=== PATIENT | male | born 1940 | race Caucasian/White ===

== ENCOUNTER 2023-11-21 14:11 | Inpatient (IN) | payer OTHER, SELFPAY ==
[2023-11-21 09:15] VITALS: BP 146/75
--- NOTE | 2023-11-21 09:46 | ED.GENMED ---
History of Present Illness
General
Chief Complaint: Breathing Problem
Source: patient
Exam Limitations: none
Time Seen by Provider: 11/21/23 09:43
Nursing documentation reviewed up to this point in time: agreed with
Travel History
Have you had any contact with someone who has COVID-19?: No
Do you have any symptoms of coronavirus? Fever > 100 degrees, chills, cough, shortness of breath, sore throat, loss of taste or smell, muscle aches, or headache?: No
History of Present Illness
History of Present Illness:
83-year-old male with a past medical history of COPD, CHF, CAD, CKD, diabetes presenting emergency department today with shortness of breath and cough x 2 days. Patient states that his symptoms came on all of a sudden yesterday. He states that he
started to feel increasingly shortness of breath all of a sudden and had a lot of coughing with sputum production. Patient states he also had chills but did not have a fever. Patient states that his albuterol rescue inhaler is not helping with his
symptoms. He does not take inhaler daily with COPD. He also has had some associated nausea today but no abdominal pain, no diarrhea, no constipation. Patient denies any lower extremity swelling, chest pain, sick contacts. Patient does not wear
oxygen at home. Patient denies any recent hospitalizations. Patient states that he is up-to-date on his vaccinations.
Past History
Past History
ED Past Medical History: CAD, Cancer (prostate age 50), CHF, COPD, GERD, Hypercholesterolemia, NIDDM, Renal failure, Other (neuropathy, hypotension, chronic back pain, mediatinal lymphadenopathy, psoriasis) and Other (ulcerative colitis)
ED Past Surgical History: Cardiac (CABG), Orthopedic (back surgery) and Urological (prostate with radiation therapy)
Social History
Tobacco: Former smoker
Alcohol: None
Drug: None
Personal:
Living: with family
Employment: Retired
Family History
Family History: Diabetes
Review of Systems
Review of Systems
All Other Systems: ROS reviewed and negative except as documented in HPI and ROS
Phy Exam
Physical Exam
Physical Exam:
General: Patient is ill appearing
Skin: warm and dry, no rashes or lesions
Head: normocephalic, atraumatic
Throat: mild pharyngeal erythema
Neck: no cervical lymphadenopathy
Cardiac: regular rate and rhythm, no murmurs.
Peripheral Vascular: No JVD, no lower extremity edema. 2+ dp pulses b/l.
Pulm: 88% pulse ox on RA, 98% on 4L. Increased respiratory rate. Diffuse rhonchi heard on exam.
Abdomen: abdomen is non-distended, non-tender to palpation
Neuro: AAOx3. CN II-XII intact.
Scores
Heart Failure Risk
Heart Failure Risk Score: Yes
History of Stroke or TIA: Yes
History of intubation for respiratory distress: No (unknown)
Heart rate on ED arrival >/= 110: No
SaO2 <90% on arrival on room air: Yes
HR >/=110 during 3min walk test (or too ill to perform test): No (unable to perform test)
ECG has acute ischemic changes: No
Urea >/=12mmol/L (BUN 33.6mg/dL): No
Serum CO2>/=35mmol/L: No
Troponin I or T elevated to MN Level (0.4mg/dL): No
NT-proBNP >/=5,000ng/L (5,000pg/ml): No
HF Risk Score: 2
Admission Status: MEDIUM RISK 9.2% Consider observation or discharge to home with homecare & f/u visit to PCP/Security Nurse, or SNF for treatment
PE Wells Score
Symptoms of DVT: No
No alternative diagnosis better explains the illness: No
Tachycardia with pulse > 100: No
Immobilization (>=3 days) or surgery within previous 4 weeks: No
Prior history of DVT or pulmonary embolism: No
Presence of hemoptysis: No
Presence of malignancy: No
Pulmonary Embolism Risk Score: 0
Probability of PE: Pt is low risk
Course
Orders/Labs/Results
Orders:
Orders
11/21/23 09:56
CR Chest - 2 Views Urgent
Comment:
Reason For Exam: shortness of breath
11/21/23 10:05
COVID-19 Antigen Urgent
Source: Nasal Swab
Complete Blood Count/With Diff Urgent
Comprehensive Metabolic Panel Urgent
NT-proBNP Urgent
Influenza A+B Rapid Molecular Urgent
ROSELINE Source: Nasal Swab
Specimen Description:
11/21/23 10:08
Ipratropium/Albuterol Sulfate [Duoneb] 3 ml INH R NOW ONE
11/21/23 11:57
Ipratropium/Albuterol Sulfate [Duoneb] 3 ml INH R NOW ONE
Prednisone [Deltasone] 40 mg PO NOW STA
11/21/23 12:57
Azithromycin 500 mg/250 ml [Zithromax Infusion] 500 mg in 250 ml IV NOW
Abnormal Lab Results
11/21/23
10:05
WBC 13.8 H 10^3/uL
(4.8-10.8)
RBC 4.00 L 10^6/uL
(4.70-6.10)
Hgb 12.0 L g/dL
(13.0-18.0)
Hct 36.3 L %
(39.0-52.0)
Abs Immat Gran (auto) 0.1 H 10^3/uL
(0-0.05)
Absolute Neuts (auto) 12.1 H 10^3/uL
(1.4-6.5)
Absolute Lymphs (auto) 0.6 L 10^3/uL
(1.2-3.4)
Absolute Monos (auto) 0.7 H 10^3/uL
(0.1-0.6)
Immature Gran % 0.9 H %
(0-0.5)
Neutrophils % 88.0 H %
(42.2-75.2)
Lymphocytes % 4.4 L %
(20.5-51.1)
BUN 31 H mg/dl
(9-20)
Creatinine 1.4 H mg/dL
(0.7-1.3)
Glucose 174 H mg/dl
(70-99)
11/21/23 10:05
11/21/23 10:05
Vital Signs
Initial and Last Documented VS:
Initial Vital Signs
Temp Pulse Resp BP Pulse Ox
98.2 F 94 22 146/75 93
11/21/23 09:15 11/21/23 09:15 11/21/23 09:15 11/21/23 09:15 11/21/23 09:15
Last Documented Vital Signs
Temp Pulse Resp BP Pulse Ox
98.2 F 94 22 146/75 98
11/21/23 09:15 11/21/23 09:15 11/21/23 09:15 11/21/23 09:15 11/21/23 11:04
MDM/Problems Addressed
Differential Diagnosis Includes:
Differentials include pneumonia, COPD exacerbation, acute bronchitis, upper respiratory tract infection, pulmonary embolism
MDM/Problems Addressed:
will obtain labs and CXR, will give duoneb
--------
CURB-65 Score: 2+, moderate risk (BUN >19 + age >65)
Chronic conditions affecting care: DM, HTN, CAD, COPD and Kidney disease
Acute Exacerbation and/or Progression of Chronic Illness: DM, HTN, COPD and Kidney disease
*Critical Care Note
Total Time (30-74mins, 75-104mins- exclusive of procedures): Not Applicable
Data Reviewed
Review of Other/Old Records Reveals: Radiology Studies (reviewed ER physician documentation from 07/24/2023, 06/11/2023) and Discharge Summary (reviewed discharge summary from 09/06/22)
Source: patient and records
Patient Management
Escalation/DeEscalation of care consider admission/obs:
83-year-old male with a past medical history of COPD, CHF, CAD, CKD, diabetes presenting emergency department today with shortness of breath and cough x 2 days. Denies fevers or chills, diarrhea. He has also had increased sputum production. On
exam, he is tachycardic and tachypneic, however is afebrile. He has diffuse rhonchi on exam and conversational dyspnea. He initially presented in the high 80s pulse ox on room air and will be placed on 4 L of oxygen at 96%. Chest x-ray negative
for pneumonia. After 1 DuoNeb treatment, patient was able to be weaned down to 2 L of oxygen, satting 98%. Patient was given 2 additional DuoNeb treatments, and a dose of prednisone. Patient states that his shortness of breath improved with this,
however he continues to require oxygen, and is failed ambulatory pulse ox monitoring and weaning of oxygen. Patient does not use oxygen at baseline, considering new oxygen requirement, patient comorbidities, will admit to hospital for further
management. Patient accepted by hospitalist.
Update Note
Update Note:
11:35 am-- reevaluated patient, patient reports that duoneb treatment helped his symptoms. patient now sating 96% on 2L. We will continue to try to ween oxygen. Will give dose of prednisone now and repeat duoneb
ED Attending Note
-
Portions of this chart may have been created with voice recognition software.� Occasional wrong word or��sound alike� substitutions may have occurred due to the inherent limitations of voice recognition software.
Discharge Plan
Departure
Patient Disposition: Admit
Date of Disposition: 11/21/23
Time of Disposition: 12:57
Presentation/result/management discussed w/ accepting MD/DO: Hospitalist
Patient with high blood pressure during this ER visit?: Yes
Condition: Good
Discharge Problem:
Acute exacerbation of chronic obstructive pulmonary disease (COPD), Hypoxia
Prescriptions:
No Action
aspirin 81 MG tablet,delayed release (DR/EC)
81 mg PO DAILY
carvedilol 6.25 MG tablet
6.25 mg PO BID
pantoprazole 40 MG tablet,delayed release (DR/EC)
40 mg PO DAILY
furosemide 40 MG tablet
40 mg PO DAILY
ergocalciferol (vitamin D2) 1,250 mcg (50,000 unit) Capsule
1,250 mcg PO .3 TIMES A MONTH
Patient Comments:
11/21/2023, Pt. takes this med. on 3 Saturdays@0800 of every month.
atorvastatin 20 mg Tablet
20 mg PO HS
ketoconazole 2 % Shampoo
1 applic TOPICAL Q48H
losartan 25 mg Tablet
25 mg PO DAILY
betamethasone dipropionate 0.05 % Cream
1 applic TOPICAL BID
albuterol sulfate 90 mcg/actuation Hfa Aerosol Inhaler
2 puff INHALATION R Q6HPRN PRN (Reason: wheezing)
ketoconazole 2 % Cream
1 applic TOPICAL BID PRN (Reason: apply to face)
Patient Comments:
11/21/2023, pt. applies after he shaves his face and sometimes at night.
Repatha SureClick 140 mg/mL Pen Injector
140 mg SC Q2W
Bevespi Aerosphere 9-4.8 mcg Hfa Aerosol Inhaler
2 puff INHALATION R BIDPRN PRN (Reason: sob)
cyanocobalamin (vitamin B-12) 1,000 mcg/ml solution
1 dose IM QMONTH
Patient Comments:
11/21/2023, per spouse, last dose was towards the end of October.
insulin aspart U-100 [Novolog FlexPen U-100 Insulin] 100 unit/mL (3 mL) insulin pen
0 sliding scale dose SC AC
Patient Comments:
11/21/2023, pt. uses sliding scale but does not know what it is.
insulin degludec [Tresiba FlexTouch U-100] 100 UNIT/ML insulin pen
44 unit SQ HS
Referrals:
Marta Ling MD [Family Provider] -
Interventions
Interventions:
*Risk Screen - Suicide Last Done: 11/21/23 09:15
*General Assessment Last Done: 11/21/23 09:15
*Neglect/Abuse Screening Last Done: 11/21/23 09:15
*ED COVID-19 Vaccine History Last Done: 11/21/23 11:05
ED- Cardiac Assessment Last Done: 11/21/23 11:05
ED- Pulmonary Assessment Last Done: 11/21/23 11:04
[2023-11-21 10:23] LABS: % Basophils 0.4 % (0-2); % Eosinophils 1.5 % (0-6); % Immature Granulocytes 0.9 % (0-0.5); % Lymphocytes 4.4 % (20.5-51.1); % Monocytes 4.8 % (1.7-9.3); Absolute Basophils 0.1 10^3/uL (0-0.2); Absolute Eosinophils 0.2 10^3/uL (0-0.7); Absolute Immature Granulocytes 0.1 10^3/uL (0-0.05); Absolute Lymphocytes 0.6 10^3/uL (1.2-3.4); Absolute Monocytes 0.7 10^3/uL (0.1-0.6); Absolute Neutrophils 12.1 10^3/uL (1.4-6.5); Hematocrit 36.3 % (39.0-52.0); Mean Corp Hgb Conc. 33.1 g/dL (33.0-37.0); Mean Corpuscular Volume 90.8 fL (80.0-94.0); Mean Platelet Volume 10.1 fL (7.4-10.4); Nucleated Red Blood Cells % 0 % (-); Platelet Count 243 10^3/uL (130-400); Red Cell Dist. Width 12.8 % (11.5-14.5); White Blood Cell Count 13.8 10^3/uL (4.8-10.8)
[2023-11-21] MEDS: DUONEB 3 ML INH ×3 (10:25→19:21)
[2023-11-21 10:35] LABS: ALT (SGPT) 11 U/L (0-50); AST (SGOT) 21 U/L (17-59); Albumin 4.4 g/dl (3.5-5.0); Alkaline Phosphatase 119 U/L (38-126); Blood Urea Nitrogen 31 mg/dl (9-20); Calcium 8.7 mg/dl (8.4-10.2); Carbon Dioxide 27 mmol/L (22-30); Chloride 106 mmol/L (98-107); Glucose 174 mg/dl (70-99); Potassium 4.6 mmol/L (3.5-5.1); Sodium 140 mmol/L (135-145); Total Bilirubin 1.2 mg/dl (0.2-1.3); Total Protein 7.5 g/dl (6.3-8.2); eGFR 49.87
[2023-11-21 10:41] LABS: COVID-19 Antigen Negative (Negative)
[2023-11-21 10:42] LABS: NT-proBNP 3220 pg/ml
--- NOTE | 2023-11-21 11:36 | PHANOTE ---
Addendum entered by Jose Leal 11/21/23 16:38:
11/21/2023, med rec tech, per pt.'s pharmacy, the Ketoconazole 2% shampoo is on hold and it was never filled.
Original Note:
11/21/2023, med rec tech, spoke to spouse to obtain pt.'s home med. list; spouse states that pt. uses Ketoconazole 2% shampoo Q48H but I could not find this med. on [facility] or in pharmacy fill data so could not confirm it.
[2023-11-21] MEDS: DELTASONE 40 MG PO (12:10)
[2023-11-21] MEDS: ZITHROMAX INFUSION 250 IV (13:32)
--- NOTE | 2023-11-21 14:01 | HPS.HSE ---
Addendum entered and electronically signed by Devon Tang MD 11/21/23 14:22:
I saw and examined the patient.
The [employer] or PA's note was reviewed and I agree with the note.
Comment: Based on my examination and review of history as noted patient has sudden onset the last 24 hours of respiratory congestion and difficulty bringing up sputum that is thick and tenacious that associated with a febrile course he tested
negative for COVID and influenza he is fully vaccinated he has an underlying history of COPD/attempts at treating in the ED were partially successful continues to have significant wheezing and rhonchi more consistent with COPD rather than CHF
although does have a history of recurrent CHF and BNP is 3200 on this presentation does not look to be fluid overloaded but will have low threshold for getting cardiology involved if COPD exacerbation treatment refractory. Would also get
Lopez on pulmonary who knows the patient but would defer that at present until can see what her responses to IV steroids [id number] nebs and Zithromax and antitussives and expectorants have effect will need to watch blood sugars closely and
adjust insulin as with his diabetes has significant hyperglycemia with steroids in the past
Original Note:
Family Physician
-
Family Physician: Marta Ling
Chief Complaint
-
Cough and Shortness of Breath
History of Present Illness
Patient is a 83 y/o male with PMH of COPD, CHF, CKD stage 3, and insulin-dependent type II diabetes mellitus who presents complaining of SOB x 2 days. Patients has had worsening SOB, cough, and sputum production for the past 2 days which worsened
last night. Patient says he was coughing up thick, white, non-bloody sputum but feels like it was not all coming up. He denies sputum production with coughing at baseline. Patient was on 4 L of oxygen and is now at 94% on 2 L. He admits to decreased
coughing and sputum production since DuoNeb treatments in the ED. Patient admits to feeling more unsteady on his feet lately. He says he fell last week without injury. Patient denies fever, chills, sweats. COVID and flu tests are negative.
Medical History
Past Medical History
Past Medical History: Reports Other
Additional Past Medical History:
Coronary Artery Disease
Left Temporal Lobe CVA
Chronic Heart Failure
Essential Hypertension
Hyperlipidemia
Diabetes Mellitus, Type 2
Diabetic Neuropathy
CKD Stage III
COPD
GERD
Prostate CA s/p Radiation Seed Implants
Past Surgical History: Reports Other
Additional Past Surgical History:
Lumbar Laminectomy
CABG
Social History
Tobacco: Former Smoker (Quit 8 years ago)
Alcohol: Occasional
Family History
Family History: Not pertinent
Allergies / Home Medications
Allergies reflects when Allergies were last updated in [employer].
Home Medications with original date entered in [employer]
Allergy/Medication List:
Allergies
Allergy/AdvReac Type Severity Reaction Status Date / Time
No Known Allergies Allergy Verified 11/21/23 09:15
Home Medications
aspirin 81 mg tablet,delayed release 81 mg PO DAILY Blood clot prevention/tx 09/21/18
carvedilol 6.25 mg tablet 6.25 mg PO BID Blood pressure 08/10/19
furosemide 40 mg tablet 40 mg PO DAILY Fluid retention/Swelling 05/16/21
pantoprazole 40 mg tablet,delayed release 40 mg PO DAILY Gastrointestinal issue 05/16/21
ergocalciferol (vitamin D2) 1,250 mcg (50,000 unit) capsule 1,250 mcg PO .3 TIMES A MONTH Supplement 09/03/22
albuterol sulfate 90 mcg/actuation aerosol inhaler 2 puff inhalation R Q6HPRN PRN wheezing 11/21/23
atorvastatin 20 mg tablet 20 mg PO HS High Cholesterol 11/21/23
betamethasone dipropionate 0.05 % topical cream 1 applic topical BID apply to face 11/21/23
cyanocobalamin (vitamin B-12) 1 dose IM QMONTH vitamin repletion 11/21/23
evolocumab 140 mg/mL subcutaneous pen injector (Repatha SureClick) 140 mg SC Q2W High Cholesterol 11/21/23
glycopyrrolate 9 mcg-formoterol 4.8 mcg HFA aerosol inhaler (Bevespi Aerosphere) 2 puff inhalation R BIDPRN PRN sob 11/21/23
insulin aspart U-100 100 unit/mL (3 mL) subcutaneous pen (Novolog FlexPen U-100 Insulin aspart) 0 sliding scale dose SC AC Diabetes 11/21/23
insulin degludec 100 unit/mL (3 mL) subcutaneous pen (Tresiba FlexTouch U-100 insulin) 44 unit SQ HS Diabetes 11/21/23
ketoconazole 2 % shampoo 1 applic topical Q48H scalp 11/21/23
ketoconazole 2 % topical cream 1 applic topical BID PRN apply to face 11/21/23
losartan 25 mg tablet 25 mg PO DAILY Blood Pressure 11/21/23
Review of Systems
-
A 12 point ROS was completed and negative except as noted: Yes
Constitutional: Denies Fever or Chills
Respiratory: Reports See HPI, Cough and Trouble Breathing
Cardiac: Denies Chest Pain or Palpitations
Physical Exam
Vital Signs
Vital Signs
Temp Pulse Resp BP Pulse Ox
98.2 F 94 22 146/75 98
11/21/23 09:15 11/21/23 09:15 11/21/23 09:15 11/21/23 09:15 11/21/23 11:04
Physical Exam
General: Comfortable and Conversant
HEENT: Moist mucous membranes and Oxygen (Nasal Cannula)
Respiratory: Wheezes (Expiratory at bilateral bases), Rhonchi (Upper lung barbosa), Crackles (Bilateral Bases) and Non Labored Respirations
Cardiac: S1/S2 and Regular Rhythm; No Murmur
GI: Soft, Non Tender and Non Distended
Rectal: Deferred by Provider
Musculoskeletal: No Clubbing, No Cyanosis and No Edema
Skin: Warm and Dry
Neuro: Awake, Alert, Oriented and Nonfocal/grossly intact
Psych: Calm
Laboratory Results
-
11/21/23 10:05
11/21/23 10:05
Laboratory Results
Total Bilirubin 1.2 mg/dl (0.2-1.3) 11/21/23 10:05
AST 21 U/L (17-59) 11/21/23 10:05
ALT 11 U/L (0-50) 11/21/23 10:05
Alkaline Phosphatase 119 U/L (38-126) 11/21/23 10:05
Data Reviewed
-
Diagnostic Radiology: Report Reviewed by me
Lab Data: Labs Reviewed by me
Impression/Plan
-
Acute Hypoxic Respiratory Insufficiency secondary to COPD Exacerbation
-Continue supplemental oxygen
Acute COPD Exacerbation
-Continue DuoNeb QID and PRN
-Continue Decadron
-Continue Zithromax
-Continue Mucinex
-Encourage use of incentive spirometer and Acapella device
Coronary Artery Disease s/p CABG
Left Temporal Lobe CVA in 2021
-Continue aspirin
Chronic Heart Failure, mid-range EF
-Echo Aug 2022: EF 40-45% with Global hypokinesis. Stage II Diastolic Dysfunction
-Continue Lasix
-Monitor Is&Os and Daily Weights
Essential Hypertension
-Continue Coreg and Losartan
Hyperlipidemia
-Continue atorvastatin
-Patient also maintained on Repatha as outpatient
Diabetes Mellitus, Type 2
-Continue Tresiba
-Monitor sugars and continue coverage insulin
CKD Stage III
-Creatinine at baseline
GERD
-Continue Protonix
DVT Proph: SC Heparin
Code Status: Full Code
[2023-11-21 14:34] VITALS: BP 138/89
[2023-11-21 17:34] VITALS: BMI 28.5
[2023-11-21] MEDS: DUONEB INH (17:34)
[2023-11-21 17:35] LABS: Glucose - Point of Care 176 mg/dl (70-99)
--- NOTE | 2023-11-21 17:35 | PTCARENOTE ---
Received pt from ED at 17:35. Pt transfered from stretcher to bed w/o incident. Vitals taken, all within normal limits. Pt assessed, oriented to room. Call hough and belongings within reach.
[2023-11-21 17:36] VITALS: BP 130/78
[2023-11-21] MEDS: NOVOLOG FLEXPEN-MODERATE RESISTANCE 1 UNITS SC (18:14)
[2023-11-21] MEDS: HEPARIN 5000 UNITS SC (18:14)
[2023-11-21 18:29] VITALS: BMI 28.5
[2023-11-21 19:10] VITALS: BP 142/74
[2023-11-21] MEDS: COREG 6.25 MG PO (20:24)
[2023-11-21] MEDS: MUCINEX 600 MG PO (20:24)
[2023-11-21] MEDS: DECADRON 4 MG IV (20:26)
[2023-11-21 21:34] LABS: Glucose - Point of Care 205 mg/dl (70-99)
[2023-11-21] MEDS: LIPITOR 20 MG PO (22:45)
[2023-11-21] MEDS: LANTUS 0.440000000000000002 UNITS SC (22:45)
[2023-11-21 23:08] VITALS: BP 133/66
[2023-11-22] VITALS (8 sets, daily range): BP systolic 114–134; BP diastolic 65–75; PULSE 87–89; O2SAT 93
[2023-11-22] MEDS: HEPARIN 5000 UNITS SC ×3 (00:13→15:30)
[2023-11-22] MEDS: DECADRON 4 MG IV (04:46)
[2023-11-22] MEDS: DUONEB 3 ML INH ×4 (07:43→20:24)
--- NOTE | 2023-11-22 08:31 | W.PN.HOSP.TC ---
Today's Communication/Plan
-
Will transition to oral prednisone and taper
Continue DuoNebs and expectorants and Acapella
May need home oxygen 6-minute walk test prior to discharge
Assessment / Plan
Assessment / Plan
Patient is a 83 y/o male with PMH of COPD, CHF, CKD stage 3, and insulin-dependent type II diabetes mellitus who presents complaining of SOB x 2 days. Patients has had worsening SOB, cough, and sputum production for the past 2 days which worsened
last night. Patient says he was coughing up thick, white, non-bloody sputum but feels like it was not all coming up. He denies sputum production with coughing at baseline. Patient was on 4 L of oxygen and is now at 94% on 2 L. He admits to decreased
coughing and sputum production since DuoNeb treatments in the ED. Patient admits to feeling more unsteady on his feet lately. He says he fell last week without injury. Patient denies fever, chills, sweats. COVID and flu tests are negative.
Acute Hypoxic Respiratory Insufficiency secondary to COPD Exacerbation
-Continue supplemental oxygen/3 L today
Acute COPD Exacerbation
-Continue DuoNeb QID and PRN
-Continue Decadron/will transition to prednisone later today
-Continue Zithromax
-Continue Mucinex
-Encourage use of incentive spirometer and Acapella device
Coronary Artery Disease s/p CABG
Left Temporal Lobe CVA in 2021
-Continue aspirin
Chronic Heart Failure, mid-range EF
-Echo Aug 2022: EF 40-45% with Global hypokinesis.� Stage II Diastolic Dysfunction
-Continue Lasix
-Monitor Is&Os and Daily Weights
Essential Hypertension
-Continue Coreg and Losartan
Hyperlipidemia
-Continue atorvastatin
-Patient also maintained on Repatha as outpatient
Diabetes Mellitus, Type 2
-Continue Tresiba
-Monitor sugars and continue coverage insulin
CKD Stage III
-Creatinine at baseline
GERD
-Continue Protonix
Prior co morbidities include left temporal lobe CVA
Diabetic neuropathy
Prostate cancer with status post radiation seed implant
DVT Proph: SC Heparin
Code Status: Full Code
Anticipated Discharge: Within 24 hours
Subjective/Interval History
-
Date of Service: November 22, 2023
Doing somewhat better remains on 3 L nasal flow oxygen had restful night still having some difficulty bringing up sputum. Encouraged usage of Acapella and incentive at bedside.
Objective Data
-
Labs:
Laboratory Results
11/22/23
06:00
WBC Pending
Hgb Pending
Hct Pending
Plt Count Pending
Sodium Pending
Potassium Pending
Chloride Pending
Carbon Dioxide Pending
BUN Pending
Creatinine Pending
Glucose Pending
Calcium Pending
Vital Signs:
Vital Signs
Temp Pulse Resp BP Pulse Ox
97.6 F 92 18 114/75 96
11/22/23 07:00 11/22/23 07:47 11/22/23 07:47 11/22/23 07:00 11/22/23 07:47
I&O
11/21/23 11/22/23 11/23/23
06:59 06:59 06:59
Intake Total 480 / 480
Balance 480 / 480
Review of Systems
-
History Source: Patient and Family
EENT: Reports No Symptoms Reported
Respiratory: Reports Cough and Wheezing
Physical Exam
-
General: Well Developed
HEENT: Normocephalic
Respiratory: Wheezes (Scattered improved breath sounds) and Rhonchi
Cardiac: Regular Rhythm
GI: Soft
Musculoskeletal: No Edema
Skin: Warm and Dry
Neuro: Awake, Alert, Oriented, AO x 3 and No Motor Deficits
Psych: Calm
Data Reviewed
-
Total Time Spent with Patient (in minutes): 45
Labs: Labs Reviewed by me
[2023-11-22 08:34] LABS: Glucose - Point of Care 223 mg/dl (70-99)
[2023-11-22] MEDS: MUCINEX 600 MG PO ×2 (08:41→22:01)
[2023-11-22] MEDS: COZAAR 25 MG PO (08:41)
[2023-11-22] MEDS: ASPIR LOW (ENTERIC COATED) 81 MG PO (08:41)
[2023-11-22] MEDS: LASIX 40 MG PO (08:41)
[2023-11-22] MEDS: ZITHROMAX 500 MG PO (08:41)
[2023-11-22] MEDS: PROTONIX 40 MG PO (08:41)
[2023-11-22] MEDS: COREG PO ×2 (08:42→22:08)
[2023-11-22] MEDS: NOVOLOG FLEXPEN-MODERATE RESISTANCE 3 UNITS SC (08:49)
[2023-11-22 09:37] LABS: Hematocrit 33.1 % (39.0-52.0); Mean Corp Hgb Conc. 33.2 g/dL (33.0-37.0); Mean Corpuscular Hgb 30.1 pg (27.0-31.0); Mean Corpuscular Volume 90.7 fL (80.0-94.0); Mean Platelet Volume 10.4 fL (7.4-10.4); Platelet Count 212 10^3/uL (130-400); Red Blood Cell Count 3.65 10^6/uL (4.70-6.10); Red Cell Dist. Width 12.8 % (11.5-14.5); White Blood Cell Count 8.7 10^3/uL (4.8-10.8)
[2023-11-22 10:51] LABS: Glycohemoglobin (HgbA1c) 7.6 % (4.0-5.6)
[2023-11-22 11:09] LABS: Blood Urea Nitrogen 38 mg/dl (9-20); Calcium 8.7 mg/dl (8.4-10.2); Carbon Dioxide 20 mmol/L (22-30); Chloride 106 mmol/L (98-107); Estimated Creatinine Clearance 41 ml/min; Glucose 207 mg/dl (70-99); Potassium 4.2 mmol/L (3.5-5.1); Sodium 136 mmol/L (135-145); eGFR 49.87
[2023-11-22 13:56] LABS: Glucose - Point of Care 304 mg/dl (70-99)
[2023-11-22] MEDS: NOVOLOG FLEXPEN-MODERATE RESISTANCE 7 UNITS SC (14:07)
[2023-11-22 17:32] LABS: Glucose - Point of Care 273 mg/dl (70-99)
[2023-11-22] MEDS: NOVOLOG FLEXPEN-MODERATE RESISTANCE 5 UNITS SC (18:00)
[2023-11-22 21:39] LABS: Glucose - Point of Care 255 mg/dl (70-99)
[2023-11-22] MEDS: LANTUS 0.440000000000000002 UNITS SC (22:00)
[2023-11-22] MEDS: LIPITOR 20 MG PO (22:00)
[2023-11-23] MEDS: HEPARIN 5000 UNITS SC ×2 (00:35→08:37)
[2023-11-23 03:00] VITALS: BP 125/65
[2023-11-23 06:00] VITALS: BMI 30.1
[2023-11-23 07:02] LABS: Hematocrit 31.7 % (39.0-52.0); Hemoglobin 10.8 g/dL (13.0-18.0); Mean Corp Hgb Conc. 34.1 g/dL (33.0-37.0); Mean Corpuscular Hgb 30.4 pg (27.0-31.0); Mean Corpuscular Volume 89.3 fL (80.0-94.0); Mean Platelet Volume 10.4 fL (7.4-10.4); Platelet Count 213 10^3/uL (130-400); Red Blood Cell Count 3.55 10^6/uL (4.70-6.10); Red Cell Dist. Width 12.7 % (11.5-14.5); White Blood Cell Count 9.9 10^3/uL (4.8-10.8)
[2023-11-23 07:17] LABS: Blood Urea Nitrogen 53 mg/dl (9-20); Calcium 8.8 mg/dl (8.4-10.2); Carbon Dioxide 25 mmol/L (22-30); Chloride 101 mmol/L (98-107); Estimated Creatinine Clearance 38 ml/min; Glucose 137 mg/dl (70-99); Sodium 136 mmol/L (135-145); eGFR 45.91
[2023-11-23 07:30] VITALS: BP 125/68
[2023-11-23] MEDS: DUONEB 3 ML INH ×2 (08:09→11:13)
[2023-11-23 08:15] LABS: Glucose - Point of Care 121 mg/dl (70-99)
[2023-11-23] MEDS: DELTASONE 40 MG PO (08:35)
[2023-11-23] MEDS: ZITHROMAX 500 MG PO (08:35)
[2023-11-23] MEDS: ASPIR LOW (ENTERIC COATED) 81 MG PO (08:35)
[2023-11-23] MEDS: COREG 6.25 MG PO (08:36)
[2023-11-23] MEDS: COZAAR 25 MG PO (08:36)
[2023-11-23] MEDS: MUCINEX 600 MG PO (08:36)
[2023-11-23] MEDS: LASIX 40 MG PO (08:36)
[2023-11-23] MEDS: PROTONIX 40 MG PO (08:37)
[2023-11-23] MEDS: NOVOLOG FLEXPEN-MODERATE RESISTANCE SC ×2 (08:43→13:17)
--- NOTE | 2023-11-23 08:58 | W.DS.TRANS ---
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
-
Discharge Instructions:
Sleep Apnea Risk Intermediate
Discharge Diagnosis/Procedures Acute COPD exacerbation
Acute hypoxic respiratory insufficiency
Type 2 diabetes mellitus
Chronic midrange ejection fraction heart failure
Diet Diabetic, Carb Controlled
Activity No restrictions
Driving Restrictions As prior to admission
Instructions:
Stand-Alone Forms:
Changes to Home Medications: Yes
Discharge Medications:
DC Medications w/original date entered in [employer]
aspirin 81 mg tablet,delayed release 81 mg PO DAILY Blood clot prevention/tx 09/21/18
carvedilol 6.25 mg tablet 6.25 mg PO BID Blood pressure 08/10/19
furosemide 40 mg tablet 40 mg PO DAILY Fluid retention/Swelling 05/16/21
pantoprazole 40 mg tablet,delayed release 40 mg PO DAILY Gastrointestinal issue 05/16/21
ergocalciferol (vitamin D2) 1,250 mcg (50,000 unit) capsule 1,250 mcg PO .3 TIMES A MONTH Supplement 09/03/22
albuterol sulfate 90 mcg/actuation aerosol inhaler 2 puff inhalation R Q6HPRN PRN wheezing 11/21/23
atorvastatin 20 mg tablet 20 mg PO HS High Cholesterol 11/21/23
betamethasone dipropionate 0.05 % topical cream 1 applic topical BID apply to face 11/21/23
cyanocobalamin (vitamin B-12) 1,000 mcg/mL injection solution 1,000 mcg IM QMONTH vitamin repletion 11/21/23
evolocumab 140 mg/mL subcutaneous pen injector (Repatha SureClick) 140 mg SC Q2W High Cholesterol 11/21/23
glycopyrrolate 9 mcg-formoterol 4.8 mcg HFA aerosol inhaler (Bevespi Aerosphere) 2 puff inhalation R BIDPRN PRN sob 11/21/23
insulin aspart U-100 100 unit/mL (3 mL) subcutaneous pen (Novolog FlexPen U-100 Insulin aspart) 0 sliding scale dose SC AC Diabetes 11/21/23
insulin degludec 100 unit/mL (3 mL) subcutaneous pen (Tresiba FlexTouch U-100 insulin) 44 unit SQ HS Diabetes 11/21/23
ketoconazole 2 % shampoo 1 applic topical Q48H scalp 11/21/23
ketoconazole 2 % topical cream 1 applic topical BID PRN apply to face 11/21/23
losartan 25 mg tablet 25 mg PO DAILY Blood Pressure 11/21/23
azithromycin 250 mg tablet 500 mg PO DAILY #5 tabs 11/23/23
guaifenesin 600 mg tablet, extended release 12 hr 600 mg PO Q12 #30 tabs 11/23/23
ipratropium 0.5 mg-albuterol 3 mg (2.5 mg base)/3 mL nebulization soln 3 ml inhalation R Q4HPRN PRN shortness of breath/wheezing #90 mL 11/23/23
nebulizer and compressor #1 ea 11/23/23
prednisone 20 mg tablet 40 mg PO DAILY #3 tabs 11/23/23
Home Medication Changes
azithromycin 250 mg tablet 500 mg PO DAILY #5 tabs 11/23/23
guaifenesin 600 mg tablet, extended release 12 hr 600 mg PO Q12 #30 tabs 11/23/23
ipratropium 0.5 mg-albuterol 3 mg (2.5 mg base)/3 mL nebulization soln 3 ml inhalation R Q4HPRN PRN shortness of breath/wheezing #90 mL 11/23/23
nebulizer and compressor #1 ea 11/23/23
prednisone 20 mg tablet 40 mg PO DAILY #3 tabs 11/23/23
Pending Results: No
Total time spent discharging patient (in min): 45
--- NOTE | 2023-11-23 10:25 | W.DCSUMMARY ---
Discharge Summary
Discharge Data
Date of Admission: 11/21/23
Date of Discharge: 11/23/23
Total time spent discharging patient (in min): 38
-
Pending Results: No
Hospital Course
Patient is a 83 y/o male with PMH of COPD, CHF, CKD stage 3, and insulin-dependent type II diabetes mellitus who presents complaining of SOB x 2 days. Patients has had worsening SOB, cough, and sputum production for the past 2 days which worsened.
Patient says he was coughing up thick, white, non-bloody sputum but feels like it was not all coming up. He denies sputum production with coughing at baseline. Patient was on 4 L of oxygen and is now at 94% on 2 L. He admits to decreased coughing
and sputum production since DuoNeb treatments in the ED. Patient admits to feeling more unsteady on his feet lately. He says he fell last week without injury. Patient denies fever, chills, sweats. COVID and flu tests are negative.
Patient was admitted and treated for COPD exacerbation/initial course of IV steroids DuoNeb therapy that did have some results in the ED initially required low-flow oxygen and expectorants.
He had significant improvement within 12-hour timeframe after admission and IV steroids were changed to oral prednisone which she will take for the next 3 days at time of discharge. He will be given a a prescription for a nebulizer and compressor
machine at home so he can continue as needed usage of ipratropium nebulizer therapy at home he will continue on a course of Zithromax for the next 5 days and and guaifenesin.
Discharge Plan
-
Patient Disposition: Home (Routine Discharge)
Discharge Diagnosis/Procedures: Acute COPD exacerbation
Acute hypoxic respiratory insufficiency
Type 2 diabetes mellitus
Chronic midrange ejection fraction heart failure
Diet: Diabetic, Carb Controlled
Activity: No restrictions
Driving Restrictions: As prior to admission
Referrals:
Marta Ling MD [Family Provider] - in less than 1 week
Additional Discharge Medication Instructions: Take prednisone for 3 days then stop
Prescriptions:
New
ipratropium-albuterol 0.5 mg-3 mg(2.5 mg base)/3 mL Solution For Nebulization
3 ml inhalation R Q4HPRN PRN (Reason: shortness of breath/wheezing) Qty: 90 0RF
azithromycin 250 mg Tablet
500 mg PO DAILY Qty: 5 0RF
prednisone 20 mg Tablet
40 mg PO DAILY Qty: 3 0RF
Rx Instructions:
Take for 3 days then stop
guaifenesin 600 mg Tablet Extended Release 12hr
600 mg PO Q12 Qty: 30 0RF
(DME) nebulizer and compressor Device
See Rx Instructions .ROUTE Qty: 1 0RF
Rx Instructions:
As directed
Continued
aspirin 81 MG tablet,delayed release (DR/EC)
81 mg PO DAILY
carvedilol 6.25 MG tablet
6.25 mg PO BID
pantoprazole 40 MG tablet,delayed release (DR/EC)
40 mg PO DAILY
furosemide 40 MG tablet
40 mg PO DAILY
ergocalciferol (vitamin D2) 1,250 mcg (50,000 unit) Capsule
1,250 mcg PO .3 TIMES A MONTH
Patient Comments:
11/21/2023, Pt. takes this med. 3 Saturdays of each month.
atorvastatin 20 mg Tablet
20 mg PO HS
ketoconazole 2 % Shampoo
1 applic TOPICAL Q48H
cyanocobalamin (vitamin B-12) 1,000 mcg/mL Solution
1,000 mcg IM QMONTH
Patient Comments:
11/21/2023, per spouse, last dose was towards the end of October.
losartan 25 mg Tablet
25 mg PO DAILY
betamethasone dipropionate 0.05 % Cream
1 applic TOPICAL BID
albuterol sulfate 90 mcg/actuation Hfa Aerosol Inhaler
2 puff INHALATION R Q6HPRN PRN (Reason: wheezing)
ketoconazole 2 % Cream
1 applic TOPICAL BID PRN (Reason: apply to face)
Patient Comments:
11/21/2023, pt. applies after he shaves his face and sometimes at night.
Repatha SureClick 140 mg/mL Pen Injector
140 mg SC Q2W
Bevespi Aerosphere 9-4.8 mcg Hfa Aerosol Inhaler
2 puff INHALATION R BIDPRN PRN (Reason: sob)
insulin aspart U-100 [Novolog FlexPen U-100 Insulin] 100 unit/mL (3 mL) insulin pen
0 sliding scale dose SC AC
Patient Comments:
11/21/2023, pt. uses sliding scale but does not know what it is.
insulin degludec [Tresiba FlexTouch U-100] 100 UNIT/ML insulin pen
44 unit SQ HS
Discharge Orders:
Discharge Patient (As Directed); Ordered 11/23/23
Ordered By: Devon Tang
[2023-11-23 12:00] VITALS: BP 134/73
--- NOTE | 2023-11-23 13:17 | CM ---
Met with patient and his who had questions about how to acquire a nebulizer. Placed a call to [facility] and they have them in stock. Provided patient and his with directions and number to the store. They had no further questions.
Patient is going home no needs from .
Plan: Case management will continue to follow and assist with discharge planning. Home when cleared.
== END 2023-11-23 13:22 | disposition home or self-care (01) | DRG 191 ==
LOC: 3 WEST ACU 14:11
PROVIDERS: Emergency Medicine; Physician Assistant Medical; ADMITTING PHYSICIAN Internal Medicine; EMERGENCY PHYSICIAN Emergency Medicine; FAMILY PHYSICIAN Internal Medicine
DX: J44.1 Chronic obstructive pulmonary disease with (acute) exacerbation (principal); I13.0 Hypertensive heart and chronic kidney disease with heart failure and stage 1 through stage 4 chronic kidney disease, or unspecified chronic kidney disease; I50.22 Chronic systolic (congestive) heart failure; E11.22 Type 2 diabetes mellitus with diabetic chronic kidney disease; N18.30 Chronic kidney disease, stage 3 unspecified; R09.02 Hypoxemia; Z79.84 Long term (current) use of oral hypoglycemic drugs
CPT/HCPCS: 71046; 80048; 80053; 82962; 83036; 83880; 85025; 85027; 87070; 87502; 87811; 94640; 96365; 97162; 97166; 99284

== ENCOUNTER 2023-11-25 02:54 | Inpatient (IN) | payer OTHER, SELFPAY ==
[2023-11-24 23:44] VITALS: BP 113/65; BMI 30.2
[2023-11-24 23:46] VITALS: BP 113/65
[2023-11-25] VITALS (10 sets, daily range): BP systolic 100–148; BP diastolic 60–92; BMI 28.9
[2023-11-25 00:31] LABS: ALT (SGPT) 15 U/L (0-50); AST (SGOT) 22 U/L (17-59); Albumin 3.9 g/dl (3.5-5.0); Alkaline Phosphatase 86 U/L (38-126); Blood Urea Nitrogen 56 mg/dl (9-20); Calcium 8.2 mg/dl (8.4-10.2); Carbon Dioxide 17 mmol/L (22-30); Chloride 97 mmol/L (98-107); Estimated Creatinine Clearance 34 ml/min; Glucose 308 mg/dl (70-99); Potassium 4.6 mmol/L (3.5-5.1); Sodium 131 mmol/L (135-145); Total Protein 6.8 g/dl (6.3-8.2); eGFR 36.89
--- NOTE | 2023-11-25 00:32 | ED.GENMED ---
History of Present Illness
General
Chief Complaint: Numbness
Source: patient and family
Time Seen by Provider: 11/24/23 23:48
Travel History
Have you had any contact with someone who has COVID-19?: No
Do you have any symptoms of coronavirus? Fever > 100 degrees, chills, cough, shortness of breath, sore throat, loss of taste or smell, muscle aches, or headache?: No
History of Present Illness
History of Present Illness:
83-year-old male who was recently hospitalized for COPD with a long history of COPD, CHF, CAD who presents with somewhat acute pain and numbness to the right lower extremity. Patient was at an event and sitting eating and drinking when he suddenly
developed what he describes as numbness. He then could not get up and bear weight. He denies a fall or injury of any kind. He is not anticoagulated. No fevers.
Past History
Past History
ED Past Medical History: CAD, Cancer (prostate age 50), CHF, COPD, GERD, Hypercholesterolemia, NIDDM, Renal failure, Other (neuropathy, hypotension, chronic back pain, mediatinal lymphadenopathy, psoriasis) and Other (ulcerative colitis)
ED Past Surgical History: Cardiac (CABG), Orthopedic (back surgery) and Urological (prostate with radiation therapy)
Social History
Tobacco: Former smoker
Alcohol: None
Drug: None
Personal:
Living: with family
Employment: Retired
Family History
Family History: Diabetes
Phy Exam
Physical Exam
Physical Exam:
CONSTITUTIONAL Vital signs reviewed, Patient alert and oriented to person, place and time. Well-appearing
HEAD atraumatic, normocephalic.
EYES eyelids normal to inspection, Extraocular muscles intact, Conjunctiva normal, Sclera normal.
NECK normal range of motion, Trachea midline, no jugular venous distention.
RESP no respiratory distress
BACK No obvious deformities
UPPER EXTREMITY Gross Range of motion normal, gross motor strength normal
LOWER EXTREMITY moderate tenderness and swelling to the proximal thigh region. There is no redness or warmth. He does have a coolness to bilateral feet but right lower extremity does have some coolness up toward the mid portion of the leg as well.
There is no cyanosis or bluish discoloration. He has moderate tenderness in the proximal right thigh and groin. Patient does have a shortened right lower extremity with mild external rotation
NEURO Speech normal, No focal motor deficits include, [place] coma scale 15, Memory normal, Cranial Nerves intact to screening exam.
SKIN Skin warm, dry, and normal in color.
PSYCHIATRIC Patient oriented to person place and time, Normal affect.
Course
Orders/Labs/Results
Orders:
Orders
11/25/23 00:03
Complete Blood Count/With Diff Urgent
Comprehensive Metabolic Panel Urgent
11/25/23 00:13
Hip, Right 2-3 Views [CR Hip - RT w/wo Pel 2-3 Vw*] Urgent
Comment:
Reason For Exam: pain
Include a pelvis x-ray?: Yes
Abnormal Lab Results
11/25/23
00:03
WBC 12.2 H 10^3/uL
(4.8-10.8)
RBC 3.61 L 10^6/uL
(4.70-6.10)
Hgb 10.8 L g/dL
(13.0-18.0)
Hct 32.7 L %
(39.0-52.0)
Abs Immat Gran (auto) 0.2 H 10^3/uL
(0-0.05)
Absolute Neuts (auto) 11.1 H 10^3/uL
(1.4-6.5)
Absolute Lymphs (auto) 0.5 L 10^3/uL
(1.2-3.4)
Immature Gran % 2.0 H %
(0-0.5)
Neutrophils % 91.3 H %
(42.2-75.2)
Lymphocytes % 4.0 L %
(20.5-51.1)
Sodium 131 L mmol/L
(135-145)
Chloride 97 L mmol/L
(98-107)
Carbon Dioxide 17 L mmol/L
(22-30)
BUN 56 H mg/dl
(9-20)
Creatinine 1.8 H mg/dL
(0.7-1.3)
Glucose 308 H mg/dl
(70-99)
Calcium 8.2 L mg/dl
(8.4-10.2)
11/25/23 00:03
11/25/23 00:03
Vital Signs
Initial and Last Documented VS:
Initial Vital Signs
Temp Pulse Resp BP Pulse Ox
97.8 F 85 28 113/65 96
11/24/23 23:44 11/24/23 23:44 11/24/23 23:44 11/24/23 23:44 11/24/23 23:44
Last Documented Vital Signs
Temp Pulse Resp BP Pulse Ox
97.8 F 84 14 113/65 97
11/24/23 23:44 11/25/23 00:30 11/25/23 00:30 11/24/23 23:46 11/25/23 00:30
MDM/Problems Addressed
MDM/Problems Addressed:
Leg pain, intertroch fx
Chronic conditions affecting care: COPD
*Radiology
Radiology exam reviewed: preliminary read by ED provider (intertroch fx)
*Pulse Oximetry
Patient hypoxic: no
*Critical Care Note
Total Time (30-74mins, 75-104mins- exclusive of procedures): Not Applicable
Data Reviewed
Review of Other/Old Records Reveals: Discharge Summary
Source: patient and family
Further Testing Considered But Not Given:
considered vasc testing but nl dopplers on exam
Patient Management
Discussion with other providers: Hospitalist and [facility] (ortho)
Escalation/DeEscalation of care consider admission/obs:
Patient did not fall. Question insufficiency fracture in light of this history of chronic medical conditions.
ED Attending Note
-
Portions of this chart may have been created with voice recognition software.� Occasional wrong word or��sound alike� substitutions may have occurred due to the inherent limitations of voice recognition software.
Discharge Plan
Departure
Patient Disposition: Admit
Date of Disposition: 11/25/23
Time of Disposition: 01:11
Admit to: Med/Surg
Presentation/result/management discussed w/ accepting MD/DO: Hospitalist
Discharge Problem:
Closed hip fracture
Prescriptions:
No Action
aspirin 81 MG tablet,delayed release (DR/EC)
81 mg PO DAILY
carvedilol 6.25 MG tablet
6.25 mg PO BID
pantoprazole 40 MG tablet,delayed release (DR/EC)
40 mg PO DAILY
furosemide 40 MG tablet
40 mg PO DAILY
ergocalciferol (vitamin D2) 1,250 mcg (50,000 unit) Capsule
1,250 mcg PO .3 TIMES A MONTH
Patient Comments:
11/21/2023, Pt. takes this med. 3 Saturdays of each month.
atorvastatin 20 mg Tablet
20 mg PO HS
ketoconazole 2 % Shampoo
1 applic TOPICAL Q48H
cyanocobalamin (vitamin B-12) 1,000 mcg/mL Solution
1,000 mcg IM QMONTH
Patient Comments:
11/21/2023, per spouse, last dose was towards the end of October.
losartan 25 mg Tablet
25 mg PO DAILY
betamethasone dipropionate 0.05 % Cream
1 applic TOPICAL BID
albuterol sulfate 90 mcg/actuation Hfa Aerosol Inhaler
2 puff INHALATION R Q6HPRN PRN (Reason: wheezing)
ketoconazole 2 % Cream
1 applic TOPICAL BID PRN (Reason: apply to face)
Patient Comments:
11/21/2023, pt. applies after he shaves his face and sometimes at night.
Repatha SureClick 140 mg/mL Pen Injector
140 mg SC Q2W
Bevespi Aerosphere 9-4.8 mcg Hfa Aerosol Inhaler
2 puff INHALATION R BIDPRN PRN (Reason: sob)
insulin aspart U-100 [Novolog FlexPen U-100 Insulin] 100 unit/mL (3 mL) insulin pen
0 sliding scale dose SC AC
Patient Comments:
11/21/2023, pt. uses sliding scale but does not know what it is.
insulin degludec [Tresiba FlexTouch U-100] 100 UNIT/ML insulin pen
44 unit SQ HS
ipratropium-albuterol 0.5 mg-3 mg(2.5 mg base)/3 mL Solution For Nebulization
3 ml inhalation R Q4HPRN PRN (Reason: shortness of breath/wheezing) Qty: 90 0RF
azithromycin 250 mg Tablet
500 mg PO DAILY Qty: 5 0RF
prednisone 20 mg Tablet
40 mg PO DAILY Qty: 3 0RF
Rx Instructions:
Take for 3 days then stop
guaifenesin 600 mg Tablet Extended Release 12hr
600 mg PO Q12 Qty: 30 0RF
(DME) nebulizer and compressor Device
See Rx Instructions .ROUTE Qty: 1 0RF
Rx Instructions:
As directed
Referrals:
Marta Ling MD [Family Provider] -
Interventions
Interventions:
*Risk Screen - Suicide Last Done: 11/24/23 23:44
*General Assessment Last Done: 11/24/23 23:44
*Neglect/Abuse Screening Last Done: 11/24/23 23:44
ED- Fall Risk Assessment Last Done: 11/24/23 23:44
*ED COVID-19 Vaccine History Last Done: 11/24/23 23:44
ED- Neurological Assessment Last Done: 11/24/23 23:44
[2023-11-25 00:34] LABS: % Basophils 0.1 % (0-2); % Monocytes 2.6 % (1.7-9.3); % Neutrophils 91.3 % (42.2-75.2); Absolute Immature Granulocytes 0.2 10^3/uL (0-0.05); Absolute Lymphocytes 0.5 10^3/uL (1.2-3.4); Absolute Monocytes 0.3 10^3/uL (0.1-0.6); Absolute Neutrophils 11.1 10^3/uL (1.4-6.5); Hematocrit 32.7 % (39.0-52.0); Hemoglobin 10.8 g/dL (13.0-18.0); Mean Corpuscular Hgb 29.9 pg (27.0-31.0); Mean Corpuscular Volume 90.6 fL (80.0-94.0); Mean Platelet Volume 10.3 fL (7.4-10.4); Nucleated Red Blood Cells % 0 % (-); Platelet Count 265 10^3/uL (130-400); Red Blood Cell Count 3.61 10^6/uL (4.70-6.10); Red Cell Dist. Width 13.2 % (11.5-14.5); White Blood Cell Count 12.2 10^3/uL (4.8-10.8)
[2023-11-25] MEDS: MORPHINE SULFATE 4 MG IV (01:44)
--- NOTE | 2023-11-25 02:34 | HPS.HSE ---
Family Physician
-
Family Physician: Marta Vazquez-Callie Ling
Chief Complaint
-
R Hip pain / numbness
History of Present Illness
Patient is an 83y M with PMH significant for ASCVD, CKD III and recent admission for COPD exacerbation who presents to ED complaining of R hip pain and numbness. Patient was recently admitted here at from 11/20 - 11/22 secondary to SOB and
wheezing. He was treated for exacerbation of COPD and was discharged to home on 11/23/23 on steroid taper and azithromycin. Patient notes that his breathing has been significantly improved since his hospitalization. Today, he went for a haircut and
when he returned home he was unable to get out of the car. He notes that he simply 'could not move'. He denies any pain, etc at that time. He required significant assistance to get up, but was able to ambulate with a walker after that.
This evening he attended a [employer] alumni ceremony. He was seated at that event when he noted a sense of numbness / tingling in the R lateral thigh.
He returned home this evening and again was unable to exit his vehicle. At this point he did note pain with any attempts at bearing weight on the R foot.
He had continued numbness sensation and some discomfort in the R lateral and anterior thigh.
Patient denies any fall or other injury / trauma.
He had a qxio-ynf-wura at home about two weeks ago, but notes that he landed on the couch at that time, not on any hard surface.
He had been having no new issues with pain, numbness or difficulty ambulating between 2 weeks ago and today.
Medical History
Past Medical History
Past Medical History: Reports Other
Additional Past Medical History:
Coronary Artery Disease
Left Temporal Lobe CVA
Chronic Heart Failure
Essential Hypertension
Hyperlipidemia
Diabetes Mellitus, Type 2
Diabetic Neuropathy
CKD Stage III
COPD
GERD
Prostate CA s/p Radiation Seed Implants
Past Surgical History: Reports Other
Additional Past Surgical History:
Lumbar Laminectomy
CABG
Social History
Tobacco: Former Smoker (Quit 8 years ago)
Alcohol: Occasional
Family History
Family History: Not pertinent
Allergies / Home Medications
Allergies reflects when Allergies were last updated in [facility].
Home Medications with original date entered in [facility]
Allergy/Medication List:
Allergies
Allergy/AdvReac Type Severity Reaction Status Date / Time
No Known Allergies Allergy Verified 11/25/23 00:10
Home Medications
aspirin 81 mg tablet,delayed release 81 mg PO DAILY Blood clot prevention/tx 09/21/18
carvedilol 6.25 mg tablet 6.25 mg PO BID Blood pressure 08/10/19
furosemide 40 mg tablet 40 mg PO DAILY Fluid retention/Swelling 05/16/21
pantoprazole 40 mg tablet,delayed release 40 mg PO DAILY Gastrointestinal issue 05/16/21
ergocalciferol (vitamin D2) 1,250 mcg (50,000 unit) capsule 1,250 mcg PO .3 TIMES A MONTH Supplement 09/03/22
albuterol sulfate 90 mcg/actuation aerosol inhaler 2 puff inhalation R Q6HPRN PRN wheezing 11/21/23
atorvastatin 20 mg tablet 20 mg PO HS High Cholesterol 11/21/23
betamethasone dipropionate 0.05 % topical cream 1 applic topical BID apply to face 11/21/23
cyanocobalamin (vitamin B-12) 1,000 mcg/mL injection solution 1,000 mcg IM QMONTH vitamin repletion 11/21/23
evolocumab 140 mg/mL subcutaneous pen injector (Repatha SureClick) 140 mg SC Q2W High Cholesterol 11/21/23
glycopyrrolate 9 mcg-formoterol 4.8 mcg HFA aerosol inhaler (Bevespi Aerosphere) 2 puff inhalation R BIDPRN PRN sob 11/21/23
insulin aspart U-100 100 unit/mL (3 mL) subcutaneous pen (Novolog FlexPen U-100 Insulin aspart) 0 sliding scale dose SC AC Diabetes 11/21/23
insulin degludec 100 unit/mL (3 mL) subcutaneous pen (Tresiba FlexTouch U-100 insulin) 44 unit SQ HS Diabetes 11/21/23
ketoconazole 2 % shampoo 1 applic topical Q48H scalp 11/21/23
ketoconazole 2 % topical cream 1 applic topical BID PRN apply to face 11/21/23
losartan 25 mg tablet 25 mg PO DAILY Blood Pressure 11/21/23
azithromycin 250 mg tablet 500 mg PO DAILY #5 tabs 11/23/23
guaifenesin 600 mg tablet, extended release 12 hr 600 mg PO Q12 #30 tabs 11/23/23
ipratropium 0.5 mg-albuterol 3 mg (2.5 mg base)/3 mL nebulization soln 3 ml inhalation R Q4HPRN PRN shortness of breath/wheezing #90 mL 11/23/23
nebulizer and compressor #1 ea 11/23/23
prednisone 20 mg tablet 40 mg PO DAILY #3 tabs 11/23/23
Review of Systems
-
History Source: Patient
A 12 point ROS was completed and negative except as noted: Yes
Constitutional: Denies Fever or Chills
Respiratory: Denies Cough or Trouble Breathing
Cardiac: Denies Chest Pain or Palpitations
Abdomen/GI: Denies Abdominal Pain, Nausea, Vomiting or Diarrhea
: Denies Dysuria or Frequency
Musculoskeletal: Reports Joint Pain; Denies Edema
Neurological: Reports Weakness and Numbness; Denies Dizzy
Psych: Denies Depression or Anxiety
Physical Exam
Vital Signs
Vital Signs
Temp Pulse Resp BP Pulse Ox
97.8 F 88 23 131/78 94
11/24/23 23:44 11/25/23 01:45 11/25/23 01:45 11/25/23 01:00 11/25/23 01:45
Physical Exam
General: Other (83y M in no acute distress.)
HEENT: Moist mucous membranes and PERRLA
Respiratory: Clear; No Wheezes, Rales or Rhonchi
Cardiac: S1/S2 and Regular Rhythm; No Murmur
GI: Soft, Non Tender, Non Distended and Normal Bowel Sounds
Musculoskeletal: No Clubbing, No Cyanosis, No Edema and Other (RLE is shortened and externally rotated. Pos tenderness over greater trochanter / lateral R thigh.)
Neuro: AO x 3
Laboratory Results
-
11/25/23 00:03
11/25/23 00:03
Laboratory Results
Total Bilirubin 1.0 mg/dl (0.2-1.3) 11/25/23 00:03
AST 22 U/L (17-59) 11/25/23 00:03
ALT 15 U/L (0-50) 11/25/23 00:03
Alkaline Phosphatase 86 U/L (38-126) 11/25/23 00:03
Impression/Plan
-
A/P: Patient is an 83y M with PMH significant for ASCVD, COPD and CKD who presents to ED complaining of RLE pain and numbness.
Right Femur Fracture
- Admit for further evaluation and treatment.
- Mechanism of fracture is not clear as patient denies any recent fall, injury, etc.
- Bedrest / pain control for now.
- Ortho evaluation - tentatively for OR on Monday.
- Optimize medical status over the next 24 hours prior to OR as noted below.
COPD with Recent Exacerbation
- Stable. Not wheezing at present. Patient notes that dyspnea is much improved.
- Hold further systemic steroids given fracture, hyperglycemia, etc.
- Budesonide and DuoNebs for now.
- Continue mucolytics.
- Follow for any new / worsening symptoms.
DM-II, Uncontrolled
- Glucose in the ED was 308 with anion gap elevated at 17 consistent with perhaps mild DKA.
- Long and short acting insulin doses given on admission.
- Follow glucose and cover with SSI as needed.
- Continue basal : bolus regimen and adjust as needed for adequate control.
- Hold systemic steroids as noted above.
- Decrease basal dose of insulin Sat PM prior to OR / NPO on Monday.
ASCVD
- Stable. Prior h/o CAD and CVA.
- Continue daily ASA.
- Continue CV med regimen including beta-aimee and statin.
- Check EKG prior to OR.
- Monitor for any new symptoms / complaints.
Chronic HFmrEF
- Stable. No evidence of volume overload on current exam.
- Continue current dose of diuretic.
- Follow I/Os, daily weights, etc and adjust dosing as needed.
Benign Hypertension
- Stable. Continue current meds and adjust as needed.
CKD III
- SCr is minimally elevated from known baseline. Follow for any changes.
Chronic Anemia
- Likely anemia of CKD / chronic disease.
- Hgb is stable / at known baseline.
- Check iron studies and follow for changes in H&H perioperatively.
DVT Prophylaxis: SCDs
Code Status: Full
[2023-11-25] MEDS: NOVOLOG FLEXPEN 8 UNITS SC (03:03)
[2023-11-25] MEDS: LANTUS 0.25 UNITS SC (03:05)
[2023-11-25] MEDS: DUONEB 3 ML INH ×2 (04:00→07:46)
[2023-11-25] MEDS: TYLENOL 650 MG PO (04:14)
[2023-11-25] MEDS: MORPHINE SULFATE 2 MG IV ×3 (05:26→13:59)
[2023-11-25 07:10] LABS: Hematocrit 32.2 % (39.0-52.0); Hemoglobin 11.1 g/dL (13.0-18.0); Mean Corp Hgb Conc. 34.5 g/dL (33.0-37.0); Mean Corpuscular Hgb 30.3 pg (27.0-31.0); Mean Platelet Volume 10.1 fL (7.4-10.4); Platelet Count 239 10^3/uL (130-400); Red Blood Cell Count 3.66 10^6/uL (4.70-6.10); White Blood Cell Count 14.3 10^3/uL (4.8-10.8)
[2023-11-25 07:35] LABS: Blood Urea Nitrogen 55 mg/dl (9-20); Calcium 8.4 mg/dl (8.4-10.2); Carbon Dioxide 22 mmol/L (22-30); Chloride 99 mmol/L (98-107); Estimated Creatinine Clearance 32 ml/min; Glucose 187 mg/dl (70-99); Iron 102 ug/dl (49-181); Sodium 133 mmol/L (135-145); eGFR 39.51
[2023-11-25 07:43] LABS: Percent Saturation 40 % (20-50); Total Iron Binding Capacity 253 ug/dl (261-462)
[2023-11-25] MEDS: PULMICORT 0.5 MG INH ×2 (07:46→17:44)
[2023-11-25 08:07] LABS: Glucose - Point of Care 136 mg/dl (70-99)
[2023-11-25] MEDS: MUCINEX 600 MG PO ×2 (08:33→20:46)
[2023-11-25] MEDS: COREG 6.25 MG PO ×2 (08:33→20:46)
[2023-11-25] MEDS: COZAAR 25 MG PO (08:33)
[2023-11-25] MEDS: COLACE 100 MG PO ×2 (08:33→20:46)
[2023-11-25] MEDS: LASIX 40 MG PO (08:33)
[2023-11-25] MEDS: PROTONIX 40 MG PO (08:33)
[2023-11-25] MEDS: ASPIR LOW (ENTERIC COATED) 81 MG PO (08:34)
[2023-11-25] MEDS: DIPROSONE CREAM 0.05% 1 APPLIC TOPICAL ×2 (08:34→20:46)
--- NOTE | 2023-11-25 08:40 | W.PN.UPDATE ---
Update Note
Progress Note Update
Patient seen on AM rounds. Full consult note to follow.
Right intertrochanteric femur fx
--Plan to proceed with right CMN tomorrow. We appreciate input from primary team on medical optimization.
--NWB to RLE.
--NPO after midnight.
--OR orders placed.
--- NOTE | 2023-11-25 08:51 | W.PN.UPDATE ---
Update Note
Progress Note Update
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
I took care of this patient just 2 days ago at that time had presented with an apparent COPD exacerbation that responded well to IV steroids and antibiotic course and was sent home on a steroid taper but at a [place] function last night was unable
to move his right lower extremity and/or get up from a sitting position apparently may have fallen 2 weeks ago with the different problem trauma noted at that time falling on a couch'. Somewhat surprising presented now with inability to weight-bear
and was found to have a right femur fracture that was require or intervention/his presentation was also complicated by initial mild metabolic acidosis that is since corrected overnight with hyperglycemia also improved after stopping his steroid
management through his taper. Lung examination shows no wheezing or definitive signs of any dyspnea or hypoxia. We will continue to monitor his blood sugar but see no reason why he cannot proceed with a proposed ORIF of his right hip and femur
tomorrow under a low risk for noncardiac intervention no contraindications to surgery at this point. Would reduce his insulin glargine to 18 units tonight in preparation for intervention tomorrow and n.p.o. status.
--- NOTE | 2023-11-25 09:56 | CM ---
CM following re: discharge planning.
Reviewed pt's chart, met with pt.
Pt is an 83 year old male, admitted with primary dx of Right Femur Fracture. Per Surgery, NPO after midnight. OR tomorrow.
Pt reports he lives with spouse in [address] [place] [address] 55[address] [facility], no steps to enter, has 4 supportive children. 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 Pt reports
he had no VN services and no SNF history. pt is aware he will need SNF level of care and he stated he prefers [facility].
PCP: Zachary Ling
Pharmacy: [facility]
D/C pl;an: SNF. Pt preferred [facility] and he asked to confirm is with his family.
CM will follow to assist pt with discharge to a prefer SNF.
--- NOTE | 2023-11-25 11:35 | CON.ORTHO ---
Consultation - Orthopedics
History
Patient is an 83-year-old male with past medical history significant for ASCVD, CKD stage III and recent admission for COPD exacerbation who presents to ED status post pain in the right hip. He stated without function with incontinence of down
when he felt immediate pain in his hip. He does report having a fall 2 weeks ago but states he has been able to ambulate for the past 2 weeks. He was recently admitted from 11/20 to 11/22 at the hospital secondary to shortness of breath and wheezing
and was treated for a COPD exacerbation. He ambulates with a walker at baseline. Also reports having chronic bilateral lower extremity neuropathy. He does report having diabetes mellitus and states that his A1c roughly 2 weeks ago was about 7.5.
Denies any pain at the right knee or ankle. No other complaints at this time.
Allergies / Home Medications
Allergy/AdvReac Type Severity Reaction Status Date / Time
No Known Allergies Allergy Verified 11/25/23 00:10
Medication Instructions Recorded
aspirin 81 mg tablet,delayed 81 mg PO DAILY Blood clot 09/21/18
release prevention/tx
carvedilol 6.25 mg tablet 6.25 mg PO BID Blood pressure 08/10/19
furosemide 40 mg tablet 40 mg PO DAILY Fluid 05/16/21
retention/Swelling
pantoprazole 40 mg tablet,delayed 40 mg PO DAILY Gastrointestinal 05/16/21
release issue
ergocalciferol (vitamin D2) 1,250 1,250 mcg PO .3 TIMES A MONTH 09/03/22
mcg (50,000 unit) capsule Supplement
albuterol sulfate 90 mcg/actuation 2 puff inhalation R Q6HPRN PRN 11/21/23
aerosol inhaler wheezing
atorvastatin 20 mg tablet 20 mg PO HS High Cholesterol 11/21/23
betamethasone dipropionate 0.05 % 1 applic topical BID apply to face 11/21/23
topical cream
cyanocobalamin (vitamin B-12) 1,000 mcg IM QMONTH vitamin 11/21/23
1,000 mcg/mL injection solution repletion
evolocumab 140 mg/mL subcutaneous 140 mg SC Q2W High Cholesterol 11/21/23
pen injector (Robyn Barrios)
glycopyrrolate 9 mcg-formoterol 2 puff inhalation R BIDPRN PRN sob 11/21/23
4.8 mcg HFA aerosol inhaler
(Bevespi Aerosphere)
insulin aspart U-100 100 unit/mL 0 sliding scale dose SC AC Diabetes 11/21/23
(3 mL) subcutaneous pen (Novolog
FlexPen U-100 Insulin aspart)
insulin degludec 100 unit/mL (3 44 unit SQ HS Diabetes 11/21/23
mL) subcutaneous pen (Tresiba
FlexTouch U-100 insulin)
ketoconazole 2 % shampoo 1 applic topical Q48H scalp 11/21/23
ketoconazole 2 % topical cream 1 applic topical BID PRN apply to 11/21/23
face
losartan 25 mg tablet 25 mg PO DAILY Blood Pressure 11/21/23
azithromycin 250 mg tablet 500 mg PO DAILY #5 tabs 11/23/23
guaifenesin 600 mg tablet, 600 mg PO Q12 #30 tabs 11/23/23
extended release 12 hr
ipratropium 0.5 mg-albuterol 3 mg 3 ml inhalation R Q4HPRN PRN 11/23/23
(2.5 mg base)/3 mL nebulization shortness of breath/wheezing #90 mL
soln
nebulizer and compressor #1 ea 11/23/23
prednisone 20 mg tablet 40 mg PO DAILY #3 tabs 11/23/23
Vital Signs / Lab Results
Temp Pulse Resp BP Pulse Ox
97.4 F 88 15 148/77 92
11/25/23 07:30 11/25/23 07:48 11/25/23 07:48 11/25/23 07:30 11/25/23 07:48
11/25/23 06:02
11/25/23 06:02
Review of systems: Negative otherwise as indicated in H&P
General: Awake, alert, oriented x3; no acute distress
Head: Normocephalic, atraumatic
Eyes: Conjunctiva normal, sclera anicteric
Throat: Airway intact, handling secretions
Neck: Trachea midline, supple
Lungs: Breathing comfortably no distress
Heart: Regular rate
GI: Soft, Non Tender, Non Distended
MSK: Pain elicited upon palpation of right groin. Range of motion right hip and knee limited due to pain at the right hip. No pain on palpation of the right knee. Painless range of motion present of the right ankle. Skin intact with no
lacerations or breakage. Dorsalis pedis pulse 2+. Sensation intact at the right lower extremity grossly with exception of decreased in station distal to the ankles bilaterally due to chronic neuropathy
Imaging:
X-rays of the right hip and femur demonstrate a displaced intertrochanteric femoral neck fracture.
Assessment / Plan
Assessment:
Right hip intertrochanteric fracture
Plan:
Plan for right hip surgery tomorrow if medically cleared.
Hold anticoagulation
Nonweightbearing right lower extremity
Pain control
DVT ppx- SCDs
Further recommendations after surgery.
[2023-11-25 12:10] LABS: Glucose - Point of Care 57 mg/dl (70-99)
[2023-11-25 13:11] LABS: Glucose - Point of Care 125 mg/dl (70-99)
[2023-11-25 16:46] LABS: Glucose - Point of Care 73 mg/dl (70-99)
[2023-11-25] MEDS: COMPAZINE 5 MG IV (17:10)
[2023-11-25 21:34] LABS: Glucose - Point of Care 150 mg/dl (70-99)
[2023-11-25] MEDS: LIPITOR 20 MG PO (21:44)
[2023-11-25] MEDS: LANTUS 0.239999999999999991 UNITS SC (21:44)
[2023-11-25] MEDS: SENOKOT 17.1999999999999993 MG PO (21:44)
[2023-11-26] VITALS (10 sets, daily range): BP systolic 99–136; BP diastolic 60–88; BMI 29.1
[2023-11-26 00:52] LABS: Glucose - Point of Care 200 mg/dl (70-99)
[2023-11-26] MEDS: NOVOLOG FLEXPEN-MODERATE RESISTANCE 3 UNITS SC (01:06)
[2023-11-26] MEDS: MORPHINE SULFATE 2 MG IV ×2 (04:05→21:21)
[2023-11-26 05:47] LABS: Glucose - Point of Care 118 mg/dl (70-99)
[2023-11-26] MEDS: NOVOLOG FLEXPEN-MODERATE RESISTANCE SC ×2 (06:00→12:28)
[2023-11-26 06:33] LABS: Hematocrit 32.6 % (39.0-52.0); Hemoglobin 10.8 g/dL (13.0-18.0); Mean Corp Hgb Conc. 33.1 g/dL (33.0-37.0); Mean Corpuscular Hgb 30.3 pg (27.0-31.0); Mean Corpuscular Volume 91.3 fL (80.0-94.0); Mean Platelet Volume 10.4 fL (7.4-10.4); Platelet Count 223 10^3/uL (130-400); Red Blood Cell Count 3.57 10^6/uL (4.70-6.10); White Blood Cell Count 11.2 10^3/uL (4.8-10.8)
[2023-11-26 06:55] LABS: Blood Urea Nitrogen 61 mg/dl (9-20); Calcium 8.3 mg/dl (8.4-10.2); Carbon Dioxide 26 mmol/L (22-30); Chloride 99 mmol/L (98-107); Estimated Creatinine Clearance 34 ml/min; Glucose 116 mg/dl (70-99); Potassium 4.2 mmol/L (3.5-5.1); Sodium 134 mmol/L (135-145); eGFR 42.49
--- NOTE | 2023-11-26 06:57 | W.PN.UPDATE ---
Update Note
Progress Note Update
Mr. Fish is resting comfortably in bed this morning. He denies any pain at rest, and reports his symptoms are well controlled with his current pain management regimen.
Directed exam of right lower extremity reveals tenderness to palpation about the lateral and anterior hip. Thigh soft and compressible. Calf soft and nontender. Patient able to wiggle toes, plantar and dorsiflex ankle. Neurovascularly intact
distally.
Hgb 10.8 this AM.
Plan to proceed with OR today for right hip gamma nail under the direction of Dr. Reed. Mr. Fish has been cleared for surgery by medical team. Consent at OR desk.
--NPO until surgery.
--NWB RLE until surgery.
--Continue current pain management regimen. Ice prn for pain and edema control.
--Antibiotic ordered to OR.
--- NOTE | 2023-11-26 07:18 | W.PN.HOSP.TC ---
Today's Communication/Plan
-
No medical contraindication for proposed ORIF today under low risk
Resume long-acting insulin tonight at slightly reduced dosing of 40 units
DVT prophylaxis as per orthopedic service in the postop setting
Respiratory status significant improved but continue albuterol as needed
Assessment / Plan
Assessment / Plan
Patient is an 83y M with PMH significant for ASCVD, CKD III and recent admission for COPD exacerbation who presents to ED complaining of R hip pain and numbness.� Patient was recently admitted here at from 11/20 - 11/22 secondary to SOB and
wheezing.� He was treated for exacerbation of COPD and was discharged to home on 11/23/23 on steroid taper and azithromycin.� Patient notes that his breathing has been significantly improved since his hospitalization.� Today, he went for a haircut and
when he returned home he was unable to get out of the car.� He notes that he simply 'could not move'.� He denies any pain, etc at that time.� He required significant assistance to get up, but was able to ambulate with a walker after that.
This evening he attended a [employer] alumni ceremony.� He was seated at that event when he noted a sense of numbness / tingling in the R lateral thigh.�
He returned home this evening and again was unable to exit his vehicle.� At this point he did note pain with any attempts at bearing weight on the R foot.
He had continued numbness sensation and some discomfort in the R lateral and anterior thigh.
Patient denies any fall or other injury / trauma.
He had a [id number] at home about two weeks ago, but notes that he landed on the couch at that time, not on any hard surface.
He had been having no new issues with pain, numbness or difficulty ambulating between 2 weeks ago and today.
I took care of this patient just 2 days ago at that time had presented with an apparent COPD exacerbation that responded well to IV steroids and antibiotic course and was sent home on a steroid taper but at a [employer] function last night was unable to
move his right lower extremity and/or get up from a sitting position apparently may have fallen 2 weeks ago with the different problem trauma noted at that time falling on a couch'.� Somewhat surprising presented now with inability to weight-bear
and was found to have a right femur fracture that was require or intervention/his presentation was also complicated by initial mild metabolic acidosis that is since corrected overnight with hyperglycemia also improved after stopping his steroid
management through his taper.�
Lung examination shows no wheezing or definitive signs of any dyspnea or hypoxia.� We will continue to monitor his blood sugar but see no reason why he cannot proceed with a proposed ORIF of his right hip and femu under a low risk for noncardiac
intervention no contraindications to surgery at this point.
Right Femur Fracture
�- Admit for further evaluation and treatment.
�- Mechanism of fracture is not clear as patient denies any recent fall, injury, etc.
�- Bedrest / pain control for now.
�- Ortho evaluation - tentatively for OR on Monday.
�- Optimize medical status over the next 24 hours prior to OR as noted below.
COPD with Recent Exacerbation
�- Stable.� Not wheezing at present.� Patient notes that dyspnea is much improved.
�- Hold further systemic steroids given fracture, hyperglycemia, etc.
�- Budesonide and DuoNebs for now.
�- Continue mucolytics.
�- Follow for any new / worsening symptoms.
DM-II, Uncontrolled
�- Glucose in the ED was 308 with anion gap elevated at 17 consistent with perhaps mild DKA.
�- Long and short acting insulin doses given on admission.
�- Follow glucose and cover with SSI as needed.
�- Continue basal : bolus regimen and adjust as needed for adequate control.
�- Hold systemic steroids as noted above.
�- Decrease basal dose of insulin Sat PM prior to OR / NPO on Monday.
ASCVD
�- Stable.� Prior h/o CAD and CVA.
�- Continue daily ASA.
�- Continue CV med regimen including beta-aimee and statin.
�- Check EKG prior to OR.
�- Monitor for any new symptoms / complaints.
Chronic HFmrEF
�- Stable.� No evidence of volume overload on current exam.
�- Continue current dose of diuretic.
�- Follow I/Os, daily weights, etc and adjust dosing as needed.
Benign Hypertension
�- Stable.� Continue current meds and adjust as needed.
CKD III
�- SCr is minimally elevated from known baseline.� Follow for any changes.
Chronic Anemia
�- Likely anemia of CKD / chronic disease.
�- Hgb is stable / at known baseline.
�- Check iron studies and follow for changes in H&H perioperatively.
DVT Prophylaxis:� SCDs
Code Status:� Full
Anticipated Discharge: 24 - 48 hours
Subjective/Interval History
-
Date of Service: November 26, 2023
Remains quite pleasant in no distress and no respiratory issues going forward most which have resolved from his recent admission.
Objective Data
-
Labs:
Laboratory Results
11/26/23
05:56
WBC 11.2 H
Hgb 10.8 L
Hct 32.6 L
Plt Count 223
Sodium 134 L
Potassium 4.2
Chloride 99
Carbon Dioxide 26
BUN 61 H
Creatinine 1.6 H
Glucose 116 H
Calcium 8.3 L
Vital Signs:
Vital Signs
Temp Pulse Resp BP Pulse Ox
97.6 F 77 18 106/70 93
11/26/23 03:00 11/26/23 03:00 11/26/23 03:00 11/26/23 03:00 11/26/23 03:00
I&O
11/25/23 11/26/23 11/27/23
05:59 06:59 06:59
Intake Total
Output Total
Balance
Review of Systems
-
History Source: Patient
All other systems: Not reviewed unless documented
EENT: Reports No Symptoms Reported
Respiratory: Reports No Symptoms
Cardiac: Reports No Symptoms
Abdomen/GI: Reports No Symptoms
Musculoskeletal: Reports Muscle Stiffness and Arthralgias
Physical Exam
-
General: Well Developed
HEENT: Normocephalic
Respiratory: Rhonchi (Scattered rhonchi only no wheezes)
Cardiac: Regular Rhythm
GI: Soft, Nontender and Nondistended
Musculoskeletal: Edema, Right Lower Extrem (Mild external rotation)
Neuro: Awake, Alert, Oriented, AO x 3 and No Motor Deficits
Psych: Calm
Data Reviewed
-
Total Time Spent with Patient (in minutes): 45
Labs: Labs Reviewed by me (White count slightly elevated 11.2/recent steroid use?/Hemoglobin 10.8 for baseline prior to surgery)
[2023-11-26] MEDS: COZAAR PO (07:49)
[2023-11-26] MEDS: COREG PO (07:51)
[2023-11-26] MEDS: LASIX 40 MG PO (07:52)
[2023-11-26] MEDS: MUCINEX 600 MG PO ×2 (07:52→20:20)
[2023-11-26] MEDS: DIPROSONE CREAM 0.05% 1 APPLIC TOPICAL ×2 (07:53→20:25)
[2023-11-26] MEDS: COLACE 100 MG PO ×2 (07:53→20:20)
[2023-11-26] MEDS: PROTONIX 40 MG PO (07:53)
[2023-11-26] MEDS: ASPIR LOW (ENTERIC COATED) 81 MG PO (07:53)
[2023-11-26] MEDS: PULMICORT 0.5 MG INH (08:13)
[2023-11-26 08:46] LABS: Glucose - Point of Care 97 mg/dl (70-99)
[2023-11-26 11:19] LABS: Glucose - Point of Care 123 mg/dl (70-99)
[2023-11-26 14:05] LABS: Glucose - Point of Care 114 mg/dl (70-99)
--- NOTE | 2023-11-26 14:51 | PTCARENOTE ---
Patient to OR at 1040 this morning for ORIF of the right hip; Received patient back from OR at 1445; Surgical site assessed with [facility], right hip alex X2 C/D/I; Patient on 2L NC; Assessment ongoing
--- NOTE | 2023-11-26 16:00 | W.PN.UPDATE ---
Update Note
Progress Note Update
Patient is status post right hip intramedullary nailing. Pain controlled, moving right ankle. Dressing CDI. He may weight-bear as tolerated right lower extremity. PT/OT. DVT prophylaxis with SCDs and aspirin 325 mg twice daily x 4 weeks. Diet
okay.
[2023-11-26 17:36] LABS: Glucose - Point of Care 158 mg/dl (70-99)
[2023-11-26] MEDS: NOVOLOG FLEXPEN-MODERATE RESISTANCE 1 UNITS SC (17:39)
[2023-11-26] MEDS: TYLENOL 650 MG PO (20:19)
[2023-11-26] MEDS: COREG 6.25 MG PO (20:20)
--- NOTE | 2023-11-26 20:36 | OR.RPT ---
Operative Report
Operative Report
Orthopedic Surgery Operative Report
Date of Surgery: 11/26/23
PREOPERATIVE DIAGNOSES:
1. Right intertrochanteric femoral neck fracture
POSTOPERATIVE DIAGNOSES:
1. Right intertrochanteric femoral neck fracture
PROCEDURE PERFORMED:
1. Right hip intramedullary nailing
SURGEON: Melba Reed D.O.
[employer]: None
ANESTHESIA: General
COMPLICATIONS: None
ESTIMATED BLOOD LOSS: 50 cc
DRAINS: None
SPECIMEN: None
IMPLANTS:
All [employer]plants-
[id number] Right Gamma Nail
[id number] lag screw
5.0x52.5mm screw
5.0x60mm screw
INDICATION FOR SURGERY: Patient is an 83-year-old male who presented to the hospital with right hip pain. He was seated at a function but and when he attempted to stand he was unable to do so. He did return home and was ambulating with a walker.
However, he was unable to exit his vehicle and began having increasing pain at his right hip. He didn�t suffer any falls during this event but does report sustaining a fall 2 weeks ago. Imaging in the hospital demonstrated a right intertrochanteric
femoral neck fracture. All operative and nonoperative treatment options were discussed with the patient and a decision was made to proceed with surgery once he was medically optimized. The risks, benefits, alternatives, and indications were
discussed with the patient in detail. The risks include, but are not limited to bleeding requiring transfusion, infection, need for reoperation, nerve or blood vessel damage, anesthetic risks, need for further surgery, continued pain, blood clots in
the legs, heart attack, stroke, , neurovascular injury, malunion, nonunion, continued pain, numbness, weakness. The patient understands the risks and elected to proceed. Informed consent was obtained preoperatively.
PROCEDURE IN DETAIL: The patient was identified in the preoperative holding area. The surgical site was appropriately marked. The patient was then brought to the operating room. General anesthesia was achieved. The patient was then appropriately
positioned on the fracture table. The fracture was reduced by manipulating the limb on the fracture table under fluoroscopic guidance. The patient was given routine preoperative intravenous antibiotics. The patient was prepped and draped in the
usual sterile manner. A preoperative surgical time-out was taken and the procedure was initiated.
The greater trochanter was marked using fluoroscopy. An incision was made along the lateral hip proximal to the greater trochanter. A guidewire was then advanced under fluoroscopic guidance to gain an appropriate entry point at the greater
trochanter. Once the guidewire was placed, an opening reamer was used to gain entry into the femur. The guidewire was removed and a ball-tipped guidewire was inserted into the femur. The position of the guidewire was confirmed both with tactile
feel and with fluoroscopy. Appropriate position of the guidewire in the distal femur was confirmed on fluoroscopy. A measurement was taken for an appropriately sized nail under fluoroscopic guidance. The femur was then sequentially reamed. Next,
a size 10 x 380 nail was inserted into the femur under fluoroscopic guidance. The ball-tipped guide wire was removed. Attention was then turned towards lag screw placement. The lag screw attachment was placed on the jig. An incision was made at
the lateral thigh to advance the lag screw attachment to the lateral femur. The lag screw guidewire was then introduced into the femoral neck under fluoroscopic guidance. Once appropriate position of the guidewire was confirmed, a measurement was
taken. The femoral neck was then drilled over top the guidewire and the appropriately sized lag screw was placed under fluoroscopic guidance. Traction was removed. Compression was performed through the lag screw. The set-screw of the nail was
placed to lock the nail to the lag screw. The lag screw attachment and guide wire were removed. Attention was then turned towards placement of the distal interlocking screws. A distal interlocking screw jig extension was attached to the jig. 2
distal interlocking screws were then placed via the jig and using fluoroscopic guidance. The jig was then removed and all wounds were copiously irrigated. Final x-rays were obtained. The wounds were closed in layered fashion using vicryl suture.
Smitha were applied at the skin. Dressings were applied to all incision sites. Patient tolerated the procedure well with no immediate complications. All counts were correct at the end of the surgery.
Melba Reed D.O.
Orthopedic Surgery
[2023-11-26 21:41] LABS: Glucose - Point of Care 305 mg/dl (70-99)
[2023-11-26] MEDS: LANTUS 0.400000000000000022 UNITS SC (21:43)
[2023-11-26] MEDS: LIPITOR 20 MG PO (21:43)
[2023-11-26] MEDS: SENOKOT 17.1999999999999993 MG PO (21:43)
[2023-11-27] VITALS (7 sets, daily range): BP systolic 97–124; BP diastolic 55–73; PULSE 92; O2SAT 92–93; BMI 28.9
[2023-11-27] MEDS: DILAUDID 0.25 MG IV (00:52)
[2023-11-27] MEDS: TYLENOL 650 MG PO ×2 (01:53→10:47)
[2023-11-27] MEDS: MORPHINE SULFATE 2 MG IV ×3 (03:29→21:31)
[2023-11-27 05:34] LABS: Hematocrit 27.9 % (39.0-52.0); Hemoglobin 9.4 g/dL (13.0-18.0); Mean Corp Hgb Conc. 33.7 g/dL (33.0-37.0); Mean Corpuscular Volume 89.1 fL (80.0-94.0); Mean Platelet Volume 10.6 fL (7.4-10.4); Platelet Count 183 10^3/uL (130-400); Red Blood Cell Count 3.13 10^6/uL (4.70-6.10); Red Cell Dist. Width 13.2 % (11.5-14.5); White Blood Cell Count 12.5 10^3/uL (4.8-10.8)
[2023-11-27 06:03] LABS: Blood Urea Nitrogen 56 mg/dl (9-20); Calcium 7.4 mg/dl (8.4-10.2); Carbon Dioxide 24 mmol/L (22-30); Chloride 103 mmol/L (98-107); Estimated Creatinine Clearance 36 ml/min; Glucose 226 mg/dl (70-99); Potassium 4.6 mmol/L (3.5-5.1); Sodium 132 mmol/L (135-145); eGFR 45.91
[2023-11-27 07:29] LABS: Glucose - Point of Care 226 mg/dl (70-99)
--- NOTE | 2023-11-27 08:02 | W.PN.ORTHO ---
Documented by User: Chauncey Horn PA-C 11/27/23 08:49
Today's Communication / Plan
-
83M POD 1 R NAYA w/ Dr. Reed
-WBAT to RLE; PT/OT/DC planning
-postop orders placed
-DVT ppx and pain per primary
Assessment
.
Dressing:
Clean, dry and intact.
Plan
.
Surgery / Date: 26 November 2023 R NAYA calvert/ Dr. Reed
Activity:
Out of bed.
PT/OT
Subjective
.
.:
Patient resting. Reports difficulty with pain.
Vital Signs and Labs
.
Vital Signs and Labs:
Lab Results
11/27/23 04:57
11/27/23 04:57
Temp Pulse Resp BP Pulse Ox
97.6 F 82 17 112/70 95
11/27/23 07:50 11/27/23 07:50 11/27/23 07:50 11/27/23 07:50 11/27/23 07:50

Documented by User: Melba Reed, 11/27/23 22:46
Today's Communication / Plan
-
83M POD 1 R NAYA w/ Dr. Reed
-WBAT to RLE
-PT/OT/DC planning
-postop orders placed
-DVT ppx: SCDs and aspirin 325 mg twice daily x 4 weeks
-Pain control
[2023-11-27] MEDS: LASIX 40 MG PO (08:15)
[2023-11-27] MEDS: MUCINEX 600 MG PO ×2 (08:15→21:01)
[2023-11-27] MEDS: PROTONIX 40 MG PO (08:15)
[2023-11-27] MEDS: COLACE 100 MG PO ×2 (08:15→21:01)
[2023-11-27] MEDS: DIPROSONE CREAM 0.05% TOPICAL (08:16)
[2023-11-27] MEDS: ASPIR LOW (ENTERIC COATED) 81 MG PO (08:16)
[2023-11-27] MEDS: COZAAR 25 MG PO (08:16)
[2023-11-27] MEDS: COREG 6.25 MG PO ×2 (08:17→21:03)
[2023-11-27] MEDS: NOVOLOG FLEXPEN-MODERATE RESISTANCE 3 UNITS SC (08:17)
--- NOTE | 2023-11-27 12:10 | W.PN.HOSP.TC ---
Today's Communication/Plan
-
PT/OT, pain control
SNF planning
Assessment / Plan
Assessment / Plan
Assessment:
Right femur fracture, unclear mechanism
- s/p Right hip intramedullary nailing on 11/25
- WBAT RLE
- ASA 325mg BID x 4 weeks then resume ASA 81mg daily
- OP Ortho f/u
COPD with Recent Exacerbation
- Stable.�Not wheezing at present.�Patient notes that dyspnea is much improved.
- Hold further systemic steroids given fracture, hyperglycemia, etc.
- resume steroids at discharge.
- Budesonide and DuoNebs for now.
- Continue mucolytics.
- Follow for any new / worsening symptoms.
DM-II, Uncontrolled
- in setting of stress, chronic steroids
- continue basal:bolus regimen and titrate as needed. continue SSI
ASCVD
- Stable.� Prior h/o CAD and CVA.
- Continue daily ASA (see above)
- Continue CV med regimen including beta-aimee and statin.
Chronic HFmrEF
- Stable.� No evidence of volume overload on current exam.
- Continue current dose of diuretic.
- Follow I/Os, daily weights, etc and adjust dosing as needed.
Benign Hypertension
- Stable.�Continue current meds and adjust as needed.
CKD III
- SCr is minimally elevated from known baseline.� Follow for any changes.
Chronic Anemia
- Likely anemia of CKD / chronic disease.
- Hgb is stable / at known baseline.
Hyponatremia
DVT Prophylaxis:�SCDs
Code Status:�Full
Anticipated Discharge: > 48 hours
Subjective/Interval History
-
Date of Service: November 27, 2023
pain not well controlled with morphine, agreeable to oxy
Objective Data
-
Labs:
Laboratory Results
11/27/23
04:57
WBC 12.5 H
Hgb 9.4 L
Hct 27.9 L
Plt Count 183
Sodium 132 L
Potassium 4.6
Chloride 103
Carbon Dioxide 24
BUN 56 H
Creatinine 1.5 H
Glucose 226 H
Calcium 7.4 L
Vital Signs:
Vital Signs
Temp Pulse Resp BP Pulse Ox
96.3 F L 76 17 102/67 94
11/27/23 11:09 11/27/23 11:09 11/27/23 11:09 11/27/23 11:09 11/27/23 11:09
I&O
11/26/23 11/27/23 11/28/23
06:59 06:59 06:59
Intake Total 290 / 290
Output Total 400 / 400
Balance -110 / -110
Physical Exam
-
General: No Apparent Distress
HEENT: Normocephalic and Atraumatic
Respiratory: Negative Wheezes or Rales
Cardiac: Regular Rhythm and S1/S2
GI: Soft and Nontender
Genito-urinary: No Costovertebral Tender
Neuro: AO x 3
Hematologic / Lymphatic: No Lymphadenopathy
Psych: Calm
Data Reviewed
-
Total Time Spent with Patient (in minutes): 41
Labs: Labs Reviewed by me
[2023-11-27 12:16] LABS: Glucose - Point of Care 268 mg/dl (70-99)
[2023-11-27] MEDS: NOVOLOG FLEXPEN-MODERATE RESISTANCE 6 UNITS SC (12:57)
[2023-11-27] MEDS: ROXICODONE 5 MG PO (12:58)
--- NOTE | 2023-11-27 14:19 | CM ---
Addendum entered by Yaima Bill RN 11/27/23 16:18:
IMM signed and placed on chart.
Original Note:
Reviewed the chart notes and spoke with the patient and his family at the bedside. Patient is interested in [facility]. Referral sent. Possible discharge tomorrow. Precert will be required. CM continues to be available to patient/family and is
monitoring medical plan for needs at discharge.
Plan: Discharge to SNF once bed found and precert received.
[2023-11-27 16:25] LABS: Glucose - Point of Care 333 mg/dl (70-99)
[2023-11-27] MEDS: NOVOLOG FLEXPEN-MODERATE RESISTANCE 7 UNITS SC (16:40)
[2023-11-27] MEDS: DIPROSONE CREAM 0.05% 1 APPLIC TOPICAL (21:01)
[2023-11-27] MEDS: SENOKOT 17.1999999999999993 MG PO (21:01)
[2023-11-27] MEDS: LIPITOR 20 MG PO (21:01)
[2023-11-27] MEDS: LANTUS 0.400000000000000022 UNITS SC (21:30)
[2023-11-27 21:36] LABS: Glucose - Point of Care 254 mg/dl (70-99)
[2023-11-28] VITALS (10 sets, daily range): BP systolic 85–125; BP diastolic 53–74; PULSE 79–82; O2SAT 96–97; BMI 29.1
[2023-11-28] MEDS: DUONEB 3 ML INH (04:17)
[2023-11-28 05:12] LABS: % Basophils 0.1 % (0-2); % Eosinophils 0.8 % (0-6); % Immature Granulocytes 1.3 % (0-0.5); % Lymphocytes 10.6 % (20.5-51.1); % Monocytes 8.1 % (1.7-9.3); % Neutrophils 79.1 % (42.2-75.2); Absolute Eosinophils 0.1 10^3/uL (0-0.7); Absolute Immature Granulocytes 0.2 10^3/uL (0-0.05); Absolute Lymphocytes 1.3 10^3/uL (1.2-3.4); Hematocrit 25.9 % (39.0-52.0); Hemoglobin 8.8 g/dL (13.0-18.0); Mean Corpuscular Hgb 30.1 pg (27.0-31.0); Mean Corpuscular Volume 88.7 fL (80.0-94.0); Mean Platelet Volume 10.4 fL (7.4-10.4); Nucleated Red Blood Cells % 0 % (-); Platelet Count 219 10^3/uL (130-400); Red Blood Cell Count 2.92 10^6/uL (4.70-6.10); Red Cell Dist. Width 13.2 % (11.5-14.5); White Blood Cell Count 12.6 10^3/uL (4.8-10.8)
[2023-11-28 05:34] LABS: Blood Urea Nitrogen 63 mg/dl (9-20); Calcium 7.5 mg/dl (8.4-10.2); Carbon Dioxide 27 mmol/L (22-30); Chloride 99 mmol/L (98-107); Estimated Creatinine Clearance 29 ml/min; Glucose 140 mg/dl (70-99); Potassium 4.2 mmol/L (3.5-5.1); Sodium 130 mmol/L (135-145); eGFR 34.57
--- NOTE | 2023-11-28 07:19 | W.PN.ORTHO ---
Today's Communication / Plan
-
PT/OT
Aspirin for DVT prophylaxis
Weightbearing as tolerated
Assessment
.
Distal Motor Intact: Yes
Dressing:
Clean, dry and intact.
Plan
.
Surgery / Date: 26 November 2023 R CMN w/ Dr. Reed
DVT Prophylaxis: Aspirin
Activity:
Out of bed.
PT/OT
Subjective
.
.:
Patient resting comfortably.
Vital Signs and Labs
.
Vital Signs and Labs:
Lab Results
11/28/23 04:28
11/28/23 04:28
Temp Pulse Resp BP Pulse Ox
98 F 70 15 100/59 94
11/28/23 03:29 11/28/23 04:19 11/28/23 04:19 11/28/23 03:29 11/28/23 04:19
[2023-11-28 07:20] LABS: Glucose - Point of Care 132 mg/dl (70-99)
[2023-11-28] MEDS: NOVOLOG FLEXPEN-MODERATE RESISTANCE SC (07:30)
[2023-11-28] MEDS: ASPIRIN 325 MG PO (08:59)
[2023-11-28] MEDS: COZAAR 25 MG PO (09:01)
[2023-11-28] MEDS: PROTONIX 40 MG PO (09:01)
[2023-11-28] MEDS: COREG 6.25 MG PO ×2 (09:01→19:37)
[2023-11-28] MEDS: MUCINEX 600 MG PO ×2 (09:01→19:37)
[2023-11-28] MEDS: COLACE 100 MG PO ×2 (09:01→19:36)
[2023-11-28] MEDS: DIPROSONE CREAM 0.05% 1 APPLIC TOPICAL ×2 (09:01→19:39)
[2023-11-28] MEDS: ROXICODONE 5 MG PO ×2 (09:08→17:05)
[2023-11-28 11:09] LABS: Glucose - Point of Care 152 mg/dl (70-99)
[2023-11-28] MEDS: NOVOLOG FLEXPEN-MODERATE RESISTANCE 1 UNITS SC (13:12)
--- NOTE | 2023-11-28 13:20 | W.PN.HOSP.TC ---
Today's Communication/Plan
-
hold Lasix
PT/OT
SNF placement pending
Assessment / Plan
Assessment / Plan
Assessment:
Right femur fracture, unclear mechanism
- s/p Right hip intramedullary nailing on 11/25
- WBAT RLE
- ASA 325mg daily x 4 weeks then resume ASA 81mg daily
- OP Ortho f/u
COPD with Recent Exacerbation
- Stable.�Not wheezing at present.�Patient notes that dyspnea is much improved.
- Hold further systemic steroids given fracture, hyperglycemia, etc.
- resume steroids at discharge.
- Budesonide and DuoNebs for now.
- Continue mucolytics.
- Follow for any new / worsening symptoms.
DM-II, Uncontrolled
- in setting of stress, chronic steroids
- continue basal:bolus regimen and titrate as needed. continue SSI
ASCVD
- Stable.� Prior h/o CAD and CVA.
- Continue daily ASA (see above)
- Continue CV med regimen including beta-aimee and statin.
Chronic HFmrEF
- Stable.� No evidence of volume overload on current exam.
- Continue current dose of diuretic.
- Follow I/Os, daily weights, etc and adjust dosing as needed.
Benign Hypertension
- Stable.�Continue current meds and adjust as needed.
CKD III
- SCr is minimally elevated from known baseline.� Follow for any changes.
Chronic Anemia
- Likely anemia of CKD / chronic disease.
- Hgb is stable / at known baseline.
Hyponatremia
- hold Lasix dose and observe
DVT Prophylaxis:�SCDs+aspirin
Code Status:�Full
Anticipated Discharge: 24 - 48 hours
Subjective/Interval History
-
Date of Service: November 28, 2023
denies any new complaints
family desiring repeat PT/OT eval
Objective Data
-
Labs:
Laboratory Results
11/28/23
04:28
WBC 12.6 H
Hgb 8.8 L
Hct 25.9 L
Plt Count 219
Sodium 130 L
Potassium 4.2
Chloride 99
Carbon Dioxide 27
BUN 63 H
Creatinine 1.9 H
Glucose 140 H
Calcium 7.5 L
Vital Signs:
Vital Signs
Temp Pulse Resp BP Pulse Ox
97.7 F 86 18 100/60 91
11/28/23 11:25 11/28/23 11:25 11/28/23 11:25 11/28/23 11:25 11/28/23 11:25
I&O
11/27/23 11/28/23 11/29/23
06:59 06:59 06:59
Intake Total 290 / 290 900 / 900
Output Total 400 / 400
Balance -110 / -110 900 / 900
Physical Exam
-
General: No Apparent Distress
HEENT: Normocephalic and Atraumatic
Respiratory: Negative Wheezes or Rales
Cardiac: Regular Rhythm and S1/S2
GI: Soft and Nontender
Neuro: AO x 3
Psych: Calm
Data Reviewed
-
Total Time Spent with Patient (in minutes): 42
Labs: Labs Reviewed by me
--- NOTE | 2023-11-28 14:50 | PTCARENOTE ---
Pt hypotensive and oxygen desaturating into the 80s on RA. 2L nasal cannula applied, pt 97% on 2L. Dr Garcia made aware via tiger text, IVF ordered and initiated. Care ongoing at this time.
[2023-11-28] MEDS: NSS 500 IV (15:19)
--- NOTE | 2023-11-28 15:27 | CM ---
Reviewed the chart notes and spoke with the patient's spouse at the bedside and daughter on speaker phone. Per family, they request additional referrals be sent to [facility] and [facility]. Referrals sent. Patient now on supplemental O2. Precert
will be required. CM continues to be available to patient/family and is monitoring medical plan for needs at discharge.
Plan: Discharge to SNF once bed found and precert obtained.
[2023-11-28 16:10] LABS: Glucose - Point of Care 229 mg/dl (70-99)
[2023-11-28] MEDS: NOVOLOG FLEXPEN-MODERATE RESISTANCE 3 UNITS SC (18:24)
[2023-11-28] MEDS: SENOKOT 17.1999999999999993 MG PO (19:37)
[2023-11-28] MEDS: LIPITOR 20 MG PO (19:37)
[2023-11-28] MEDS: LANTUS 0.400000000000000022 UNITS SC (21:22)
[2023-11-28 21:26] LABS: Glucose - Point of Care 256 mg/dl (70-99)
--- NOTE | 2023-11-28 23:19 | PTCARENOTE ---
thanh care given 22:00, during last turn pt's right buttock fold noted with a small opened area measuring 0.2cmx0.2cm. Wound bed noted beefy red, no drainage, barrier cream and foam applied.
[2023-11-29] VITALS (9 sets, daily range): BP systolic 86–126; BP diastolic 60–73; PULSE 79–83; O2SAT 98; BMI 29.5
[2023-11-29] MEDS: ROXICODONE 5 MG PO ×2 (00:39→10:12)
[2023-11-29 06:48] LABS: % Basophils 0.1 % (0-2); % Eosinophils 1.5 % (0-6); % Immature Granulocytes 1.3 % (0-0.5); % Lymphocytes 8.3 % (20.5-51.1); % Monocytes 8.7 % (1.7-9.3); % Neutrophils 80.1 % (42.2-75.2); Absolute Eosinophils 0.2 10^3/uL (0-0.7); Absolute Immature Granulocytes 0.1 10^3/uL (0-0.05); Absolute Lymphocytes 0.9 10^3/uL (1.2-3.4); Absolute Neutrophils 8.7 10^3/uL (1.4-6.5); Hematocrit 27.9 % (39.0-52.0); Hemoglobin 9.1 g/dL (13.0-18.0); Mean Corp Hgb Conc. 32.6 g/dL (33.0-37.0); Mean Corpuscular Hgb 29.6 pg (27.0-31.0); Mean Corpuscular Volume 90.9 fL (80.0-94.0); Mean Platelet Volume 10.8 fL (7.4-10.4); Nucleated Red Blood Cells % 0 % (-); Platelet Count 235 10^3/uL (130-400); Red Blood Cell Count 3.07 10^6/uL (4.70-6.10); Red Cell Dist. Width 13.3 % (11.5-14.5); White Blood Cell Count 10.9 10^3/uL (4.8-10.8)
[2023-11-29 07:11] LABS: Blood Urea Nitrogen 61 mg/dl (9-20); Carbon Dioxide 26 mmol/L (22-30); Chloride 101 mmol/L (98-107); Estimated Creatinine Clearance 34 ml/min; Glucose 173 mg/dl (70-99); Potassium 4.4 mmol/L (3.5-5.1); Sodium 135 mmol/L (135-145); eGFR 42.49
[2023-11-29 07:45] LABS: Glucose - Point of Care 192 mg/dl (70-99)
--- NOTE | 2023-11-29 08:06 | W.PN.UPDATE ---
Addendum entered and electronically signed by Melba Reed DO 11/29/23 16:07:
Please disregard statement entered today at 15:59 since it was entered in error.
11/29/2023 update:
Patient resting comfortably in bed. He has been working with physical therapy, although his hypotension has been interfering with PT. He does endorse some pain at the right thigh, although improving. Dressing C/C/I with some slight strikethrough.
Distally neurovascularly intact. Recommend continued PT/OT. Appreciate internal medicine recommendations. Weight-bear as tolerated the right lower extremity. Discharge planning when medically stable. Dressings to remain for 7 to 10 days
postop. He will follow-up with me in clinic in 2 weeks for a postoperative visit and staple removal. Aspirin for DVT prophylaxis. Please call with questions.
Original Note:
Update Note
Progress Note Update
Mr. Fish is postop day 3 following his right hip gamma nail performed by Dr. Reed. He is resting comfortably in bed this morning. He reports his symptoms continue to improve with time, but he does endorse aching pain about the hip. He has
been able to work with physical therapy without significant difficulty.
Directed exam of the right lower extremity reveals slight strikethrough blood on Aquacel dressings otherwise clean, dry and intact. Mild tenderness to palpation about the anterior and lateral thigh. Thigh soft and compressible. Calf soft and
nontender. Patient able to wiggle toes, plantar and dorsiflex ankle. Sensation to light touch diminished below the ankle. Capillary refill less than 2 seconds.
Hemoglobin 9.1 this morning.
83-year-old male postop day 3 right hip gamma nail under the direction of Dr. Reed
--Continue weightbearing as tolerated to right lower extremity with walker. We appreciate the assistance of PT/OT.
-- Recommend ASA 325 mg daily x 4 weeks for DVT prophylaxis.
-- Continue current pain management regimen. Ice as needed for pain and edema control.
--Surgical dressings to remain in place until 7 to 10 days postop. Staple removal at 2 weeks postop.
-- Hemoglobin 9.1 this morning. Continue to monitor.
-- Case management consult for discharge planning. Likely SNF placement.
-- Please reach out with any additional orthopedic questions or concerns.
[2023-11-29] MEDS: NOVOLOG FLEXPEN-MODERATE RESISTANCE 1 UNITS SC ×2 (09:17→17:12)
[2023-11-29] MEDS: COREG 6.25 MG PO ×2 (09:17→19:53)
[2023-11-29] MEDS: COZAAR 25 MG PO (09:18)
[2023-11-29] MEDS: MUCINEX 600 MG PO (09:19)
[2023-11-29] MEDS: PROTONIX 40 MG PO (09:19)
[2023-11-29] MEDS: COLACE 100 MG PO ×2 (09:19→19:46)
[2023-11-29] MEDS: ASPIRIN 325 MG PO (09:19)
[2023-11-29] MEDS: DIPROSONE CREAM 0.05% 1 APPLIC TOPICAL ×2 (09:19→22:31)
[2023-11-29] MEDS: MIRALAX 17 GRAMS PO (09:20)
[2023-11-29] MEDS: TYLENOL 650 MG PO ×4 (10:14→23:06)
[2023-11-29 11:43] LABS: Glucose - Point of Care 221 mg/dl (70-99)
--- NOTE | 2023-11-29 12:29 | PTCARENOTE ---
At 1130, patient's BP 86/60, HR 81. Dr. Garcia notified, stated he would evaluate medications.
[2023-11-29] MEDS: NOVOLOG FLEXPEN-MODERATE RESISTANCE 3 UNITS SC (12:40)
--- NOTE | 2023-11-29 14:06 | W.PN.HOSP.TC ---
Today's Communication/Plan
-
pulmonary toilet, mucolytics, IS, Acapella, wean O2
hold ARB
Assessment / Plan
Assessment / Plan
Assessment:
Right femur fracture, unclear mechanism
- s/p Right hip intramedullary nailing on 11/25
- WBAT RLE
- ASA 325mg daily x 4 weeks then resume ASA 81mg daily
- OP Ortho f/u
Acute hypoxic respiratory insufficiency
COPD with Recent Exacerbation
- Stable.�Not wheezing at present.�
- resume Prednisone, Nebs/inhalers
- mucolytics, IS, Acapella
- wean O2 as able
DM-II, Uncontrolled
- in setting of stress, chronic steroids
- continue basal:bolus regimen and titrate as needed. continue SSI
ASCVD
- Stable.� Prior h/o CAD and CVA.
- Continue daily ASA (see above)
- Continue CV med regimen including beta-aimee and statin.
Chronic HFmrEF
- Stable.� No evidence of volume overload on current exam.
- Continue current dose of diuretic.
- Follow I/Os, daily weights, etc and adjust dosing as needed.
Benign Hypertension
- holding ARB For hypotension
- continue Coreg
CKD III
- SCr is minimally elevated from known baseline.� Follow for any changes.
Chronic Anemia
- Likely anemia of CKD / chronic disease.
- Hgb is stable / at known baseline.
Hyponatremia
- hold Lasix dose and observe
Constipation
- bowel regimen ordered
DVT Prophylaxis:�SCDs+aspirin
Code Status:�Full
Anticipated Discharge: > 48 hours
Subjective/Interval History
-
Date of Service: November 29, 2023
hypotensive due to AM meds - adjusted
patient with mild cough, congestion, remains on O2
Objective Data
-
Labs:
Laboratory Results
11/29/23
05:39
WBC 10.9 H
Hgb 9.1 L
Hct 27.9 L
Plt Count 235
Sodium 135
Potassium 4.4
Chloride 101
Carbon Dioxide 26
BUN 61 H
Creatinine 1.6 H
Glucose 173 H
Calcium 8.0 L
Vital Signs:
Vital Signs
Temp Pulse Resp BP Pulse Ox
98.0 F 81 17 86/60 96
11/29/23 11:30 11/29/23 11:30 11/29/23 11:30 11/29/23 11:30 11/29/23 11:30
I&O
11/28/23 11/29/23 11/30/23
06:59 06:59 06:59
Intake Total 900 / 900 1290 / 1290
Balance 900 / 900 1290 / 1290
Physical Exam
-
General: No Apparent Distress
HEENT: Normocephalic and Atraumatic
Respiratory: Rhonchi; Negative Wheezes
Cardiac: Regular Rhythm and S1/S2
GI: Soft
Neuro: AO x 3
Psych: Calm
Data Reviewed
-
Total Time Spent with Patient (in minutes): 47
Labs: Labs Reviewed by me
[2023-11-29] MEDS: DULCOLAX 10 MG RECTAL (14:21)
[2023-11-29] MEDS: ZITHROMAX 500 MG PO (14:21)
[2023-11-29] MEDS: DELTASONE 40 MG PO (14:21)
[2023-11-29] MEDS: STRIVERDI RESPIMAT INH (16:02)
[2023-11-29] MEDS: SPIRIVA RESPIMAT 2.5 MCG INH (16:02)
[2023-11-29] MEDS: DUONEB 3 ML INH ×2 (16:02→20:27)
--- NOTE | 2023-11-29 16:13 | CM ---
Reviewed the chart notes and spoke with the patient and his spouse at the bedside. IMM signed and placed on chart. Additional referrals sent to [facility] and [facility]. Per attending, discharge possibly on Monday. CM continues to be available to
patient/family and is monitoring medical plan for needs at discharge.
Plan: Discharge to SNF/rehab when medically stable, bed found, and precert obtained.
[2023-11-29 17:08] LABS: Glucose - Point of Care 181 mg/dl (70-99)
[2023-11-29] MEDS: MUCINEX 1200 MG PO (19:47)
[2023-11-29] MEDS: MORPHINE SULFATE 2 MG IV (19:48)
[2023-11-29] MEDS: FLUSH (NSS) 1 FLUSH IV (19:49)
[2023-11-29 22:18] LABS: Glucose - Point of Care 309 mg/dl (70-99)
[2023-11-29] MEDS: SENOKOT 17.1999999999999993 MG PO (22:32)
[2023-11-29] MEDS: LANTUS 0.400000000000000022 UNITS SC (22:32)
[2023-11-29] MEDS: LIPITOR 20 MG PO (22:32)
[2023-11-29] MEDS: ROXICODONE 2.5 MG PO (23:07)
--- NOTE | 2023-11-29 23:15 | PTCARENOTE ---
Pt. requesting an enema stating the suppository he had earlier wasn't working. Last BM charted 11/22, the day before pt. was admitted. House provider contacted and tap water enema ordered and given with adequate relief. Plan of care continues.
[2023-11-30] VITALS (7 sets, daily range): BP systolic 100–155; BP diastolic 50–93; PULSE 72–103; O2SAT 94; BMI 29.1
[2023-11-30] MEDS: TYLENOL PO ×2 (05:13→13:09)
[2023-11-30 05:52] LABS: % Basophils 0.1 % (0-2); % Immature Granulocytes 1.4 % (0-0.5); % Lymphocytes 4.1 % (20.5-51.1); % Monocytes 4.8 % (1.7-9.3); % Neutrophils 89.6 % (42.2-75.2); Absolute Immature Granulocytes 0.1 10^3/uL (0-0.05); Absolute Lymphocytes 0.4 10^3/uL (1.2-3.4); Absolute Monocytes 0.5 10^3/uL (0.1-0.6); Absolute Neutrophils 8.7 10^3/uL (1.4-6.5); Hematocrit 25.1 % (39.0-52.0); Hemoglobin 8.4 g/dL (13.0-18.0); Mean Corp Hgb Conc. 33.5 g/dL (33.0-37.0); Mean Corpuscular Hgb 30.1 pg (27.0-31.0); Mean Platelet Volume 10.5 fL (7.4-10.4); Nucleated Red Blood Cells % 0 % (-); Platelet Count 214 10^3/uL (130-400); Red Blood Cell Count 2.79 10^6/uL (4.70-6.10); Red Cell Dist. Width 13.2 % (11.5-14.5); White Blood Cell Count 9.7 10^3/uL (4.8-10.8)
[2023-11-30 06:09] LABS: Blood Urea Nitrogen 58 mg/dl (9-20); Carbon Dioxide 25 mmol/L (22-30); Chloride 101 mmol/L (98-107); Estimated Creatinine Clearance 39 ml/min; Glucose 220 mg/dl (70-99); Sodium 133 mmol/L (135-145); eGFR 49.87
[2023-11-30 06:18] LABS: Potassium 4.8 mmol/L (3.5-5.1)
[2023-11-30 07:34] LABS: Glucose - Point of Care 221 mg/dl (70-99)
[2023-11-30] MEDS: SPIRIVA RESPIMAT 2.5 MCG 2 PUFF INH (07:49)
[2023-11-30] MEDS: DUONEB 3 ML INH (07:49)
[2023-11-30] MEDS: STRIVERDI RESPIMAT 2 PUFF INH (07:49)
[2023-11-30] MEDS: NOVOLOG FLEXPEN-MODERATE RESISTANCE 3 UNITS SC ×2 (09:01→13:10)
[2023-11-30] MEDS: ASPIRIN 325 MG PO (09:02)
[2023-11-30] MEDS: PROTONIX 40 MG PO (09:02)
[2023-11-30] MEDS: MUCINEX 1200 MG PO ×2 (09:02→20:59)
[2023-11-30] MEDS: DELTASONE 40 MG PO (09:02)
[2023-11-30] MEDS: COREG 6.25 MG PO ×2 (09:03→20:59)
[2023-11-30] MEDS: TYLENOL 650 MG PO ×3 (09:03→20:30)
[2023-11-30] MEDS: MIRALAX 17 GRAMS PO (09:04)
[2023-11-30] MEDS: DIPROSONE CREAM 0.05% 1 APPLIC TOPICAL ×2 (09:04→20:59)
[2023-11-30] MEDS: ZITHROMAX 500 MG PO (09:04)
[2023-11-30] MEDS: COLACE 100 MG PO ×2 (09:04→20:59)
[2023-11-30] MEDS: VENTOLIN NEBULES 2.5 MG INH ×3 (11:39→19:43)
[2023-11-30 11:41] LABS: Glucose - Point of Care 236 mg/dl (70-99)
--- NOTE | 2023-11-30 13:40 | CM ---
Reviewed the chart notes. Patient for potential discharge tomorrow. Will need to call [facility] main number ([phone]) and ask for RN commissary production supervisor to check for bed availability. Precert will be required. CM continues to be available to
patient/family and is monitoring medical plan for needs at discharge.
Plan: Discharge to SNF/rehab once bed found and precert obtained.
--- NOTE | 2023-11-30 14:22 | W.PN.HOSP.TC ---
Today's Communication/Plan
-
DC planning to SNF
Assessment / Plan
Assessment / Plan
Assessment:
Right femur fracture, unclear mechanism
- s/p Right hip intramedullary nailing on 11/25
- WBAT RLE
- ASA 325mg daily x 4 weeks then resume ASA 81mg daily
- OP Ortho f/u
Acute hypoxic respiratory insufficiency
COPD with Recent Exacerbation
- Stable.�Not wheezing at present.�
- continue Prednisone, Nebs/inhalers
- continue mucolytics, IS, Acapella
- wean O2 as able
DM-II, Uncontrolled
- in setting of stress, chronic steroids
- continue basal:bolus regimen and titrate as needed. continue SSI
ASCVD
- Stable.�Prior h/o CAD and CVA.
- Continue daily ASA (see above)
- Continue CV med regimen including beta-aimee and statin.
Chronic HFmrEF
- Stable.�No evidence of volume overload on current exam.
- Continue current dose of diuretic.
- Follow I/Os, daily weights, etc and adjust dosing as needed.
Benign Hypertension
- holding ARB For hypotension
- continue Coreg
CKD III
- SCr is minimally elevated from known baseline.� Follow for any changes.
Chronic Anemia
- Likely anemia of CKD / chronic disease.
- Hgb is stable / at known baseline.
Hyponatremia
- hold Lasix dose and observe
Constipation
- bowel regimen ordered
DVT Prophylaxis:�SCDs+aspirin
Code Status:�Full
Anticipated Discharge: Within 24 hours
Subjective/Interval History
-
Date of Service: November 30, 2023
states his breathing feels better, now off O2
Objective Data
-
Labs:
Laboratory Results
11/30/23
04:54
WBC 9.7
Hgb 8.4 L
Hct 25.1 L
Plt Count 214
Sodium 133 L
Potassium 4.8
Chloride 101
Carbon Dioxide 25
BUN 58 H
Creatinine 1.4 H
Glucose 220 H
Calcium 8.0 L
Vital Signs:
Vital Signs
Temp Pulse Resp BP Pulse Ox
97.2 F 72 20 112/61 95
11/30/23 11:54 11/30/23 11:54 11/30/23 11:54 11/30/23 11:54 11/30/23 11:54
I&O
11/29/23 11/30/23 12/01/23
06:59 06:59 06:59
Intake Total 1290 / 1290 680 / 680
Output Total 725 / 725
Balance 1290 / 1290 -45 / -45
Physical Exam
-
General: No Apparent Distress
HEENT: Normocephalic and Atraumatic
Respiratory: Negative Wheezes or Rales
Cardiac: Regular Rhythm and S1/S2
GI: Soft and Nontender
Musculoskeletal: No Edema
Hematologic / Lymphatic: No Lymphadenopathy
Psych: Calm
Data Reviewed
-
Total Time Spent with Patient (in minutes): 42
Labs: Labs Reviewed by me
--- NOTE | 2023-11-30 15:07 | PN.CDI ---
CDI
- -
CDI:
Physician Documentation Request
Admit Date: 11/25/23 02:54
Dear Doctor Jose,
Patient admitted with right femur fracture s/p right hip intramedullary nailing on 11/25.
11/29 PN, 'Chronic Anemia.'
11/24 Hgb 11.1
11/29 Hgb 8.4
Based on the above, could you please clarify, in your progress note, which of the following is the most likely type of anemia you are evaluating, monitoring and/or treating?
Acute blood loss anemia on chronic anemia
Chronic anemia only
Other
Use of terms such as suspected, likely, concern for, or probable (associated with a specific diagnosis that is being evaluated, monitored, or treated as if it exists) are acceptable and can be coded in the inpatient setting, when documented at the
time of discharge.
Thank you,
Margi LERNER,RN,CCDS
CDI Specialist
Available via [employer] text
Please use your independent medical judgment in providing your response.
[2023-11-30 17:12] LABS: Glucose - Point of Care 353 mg/dl (70-99)
[2023-11-30] MEDS: NOVOLOG FLEXPEN-MODERATE RESISTANCE 9 UNITS SC (17:15)
[2023-11-30 21:31] LABS: Glucose - Point of Care 365 mg/dl (70-99)
[2023-11-30] MEDS: NOVOLOG FLEXPEN 10 UNITS SC (21:57)
[2023-11-30] MEDS: SENOKOT PO (21:58)
[2023-11-30] MEDS: LANTUS 0.400000000000000022 UNITS SC (21:58)
[2023-11-30] MEDS: LIPITOR 20 MG PO (21:58)
[2023-11-30] MEDS: MORPHINE SULFATE 2 MG IV (21:59)
[2023-12-01] LABS: Glucose - Point of Care 353 mg/dl (70-99)
[2023-12-01] MEDS: NOVOLOG FLEXPEN 10 UNITS SC (00:22)
[2023-12-01] MEDS: TYLENOL PO (01:00)
[2023-12-01 03:00] VITALS: BP 111/59
[2023-12-01] MEDS: TYLENOL 650 MG PO ×4 (03:06→15:23)
[2023-12-01 03:07] LABS: Glucose - Point of Care 277 mg/dl (70-99)
[2023-12-01 05:49] LABS: % Basophils 0.1 % (0-2); % Immature Granulocytes 1.3 % (0-0.5); % Lymphocytes 4.5 % (20.5-51.1); % Monocytes 5.9 % (1.7-9.3); % Neutrophils 88.2 % (42.2-75.2); Absolute Immature Granulocytes 0.1 10^3/uL (0-0.05); Absolute Lymphocytes 0.5 10^3/uL (1.2-3.4); Absolute Monocytes 0.6 10^3/uL (0.1-0.6); Absolute Neutrophils 9.3 10^3/uL (1.4-6.5); Hemoglobin 8.3 g/dL (13.0-18.0); Mean Corp Hgb Conc. 33.2 g/dL (33.0-37.0); Mean Corpuscular Volume 90.3 fL (80.0-94.0); Mean Platelet Volume 10.4 fL (7.4-10.4); Nucleated Red Blood Cells % 0 % (-); Platelet Count 241 10^3/uL (130-400); Red Blood Cell Count 2.77 10^6/uL (4.70-6.10); Red Cell Dist. Width 13.5 % (11.5-14.5); White Blood Cell Count 10.5 10^3/uL (4.8-10.8)
[2023-12-01 06:00] VITALS: BMI 29.5
[2023-12-01 06:10] LABS: Blood Urea Nitrogen 65 mg/dl (9-20); Carbon Dioxide 24 mmol/L (22-30); Chloride 100 mmol/L (98-107); Estimated Creatinine Clearance 36 ml/min; Glucose 222 mg/dl (70-99); Potassium 5.5 mmol/L (3.5-5.1); Sodium 129 mmol/L (135-145); eGFR 45.91
[2023-12-01 07:40] VITALS: BP 123/54
[2023-12-01 07:45] LABS: Glucose - Point of Care 211 mg/dl (70-99)
[2023-12-01] MEDS: STRIVERDI RESPIMAT 2 PUFF INH (08:33)
[2023-12-01] MEDS: VENTOLIN NEBULES 2.5 MG INH ×3 (08:33→15:41)
[2023-12-01] MEDS: SPIRIVA RESPIMAT 2.5 MCG 2 PUFF INH (08:33)
[2023-12-01] MEDS: DELTASONE 40 MG PO (09:07)
[2023-12-01] MEDS: MUCINEX 1200 MG PO (09:07)
[2023-12-01] MEDS: ASPIRIN 325 MG PO (09:08)
[2023-12-01] MEDS: PROTONIX 40 MG PO (09:08)
[2023-12-01] MEDS: COLACE 100 MG PO (09:08)
[2023-12-01] MEDS: ZITHROMAX 500 MG PO (09:08)
[2023-12-01] MEDS: COREG 6.25 MG PO (09:09)
[2023-12-01] MEDS: DIPROSONE CREAM 0.05% 1 APPLIC TOPICAL (09:09)
[2023-12-01] MEDS: MIRALAX 17 GRAMS PO (09:09)
[2023-12-01] MEDS: NOVOLOG FLEXPEN-MODERATE RESISTANCE 3 UNITS SC (09:11)
[2023-12-01] MEDS: LASIX 40 MG PO (09:14)
[2023-12-01] MEDS: ROXICODONE 5 MG PO ×2 (10:30→15:41)
[2023-12-01 10:56] VITALS: BP 117/61
[2023-12-01 11:51] LABS: Glucose - Point of Care 329 mg/dl (70-99)
--- NOTE | 2023-12-01 12:07 | CM ---
Patient with Dx Right femur fracture s/p Right hip intramedullary nailing on 11/25. PT & OT; requires assist of 2, recommend skilled rehab.
Spoke with MATHEW [facility]; SNF auth info provided. They are able to accept the patient today. The for report [phone], fax [phone]. Patient will go to 4th floor room 415.
Spoke with Matilda [facility]; auth obtained for [facility] for rehab, auth # [id number], 5 days, from 11/30 to 12/04, skilled level 1. NR 12/04 to [phone]. [facility] Ambulance auth with [facility] (good for 3 days until 12/02), auth # [id number].
Spoke with patient's Anju; she agrees with [facility] today by ambulance. IMM updated.
Plan [facility] today by ambulance.
--- NOTE | 2023-12-01 12:22 | W.PN.HOSP.TC ---
Today's Communication/Plan
-
Lokelma - repeat BMP in 3 days
DC to SNF
Assessment / Plan
Assessment / Plan
Assessment:
Right femur fracture, unclear mechanism
- s/p Right hip intramedullary nailing on 11/25
- WBAT RLE
- ASA 325mg daily x 4 weeks then resume ASA 81mg daily
- OP Ortho f/u
Acute hypoxic respiratory insufficiency
COPD with Recent Exacerbation
- Stable.�Not wheezing at present.�
- continue Prednisone, Nebs/inhalers
- continue mucolytics, IS, Acapella
- wean O2 as able
DM-II, Uncontrolled
- in setting of stress, chronic steroids
- continue basal:bolus regimen and titrate as needed. continue SSI
ASCVD
- Stable.�Prior h/o CAD and CVA.
- Continue daily ASA (see above)
- Continue CV med regimen including beta-aimee and statin.
Chronic HFmrEF
- Stable.�No evidence of volume overload on current exam.
- Continue current dose of diuretic.
- Follow I/Os, daily weights, etc and adjust dosing as needed.
Benign Hypertension
- continue Coreg
CKD III
- SCr is minimally elevated from known baseline.� Follow for any changes.
Chronic Anemia
Acute blood loss anemia on chronic anemia
- Likely anemia of CKD / chronic disease.
- Hgb is stable / at known baseline.
Hyponatremia
- resume Lasix weight gain
Constipation
- bowel regimen
Hyperkalemia
- Lokelma dose prior to DC
- repeat BMP in 3 days
DVT Prophylaxis:�SCDs+aspirin
Code Status:�Full
More than 30 minutes spent in discharge including
Final examination of the patient
Summarizing hospital stay
Instructions for continuing care to all relevant caregivers
Preparation of discharge records, prescriptions, and referral forms
Total time spent (in minutes): 42
Anticipated Discharge: Today
Subjective/Interval History
-
Date of Service: December 01, 2023
improved, for DC to SNF today
Objective Data
-
Labs:
Laboratory Results
12/01/23
05:19
WBC 10.5
Hgb 8.3 L
Hct 25.0 L
Plt Count 241
Sodium 129 L
Potassium 5.5 H
Chloride 100
Carbon Dioxide 24
BUN 65 H
Creatinine 1.5 H
Glucose 222 H
Calcium 8.0 L
Vital Signs:
Vital Signs
Temp Pulse Resp BP Pulse Ox
97.8 F 88 16 117/61 94
12/01/23 10:56 12/01/23 11:18 12/01/23 11:18 12/01/23 10:56 12/01/23 10:56
I&O
11/30/23 12/01/23 12/02/23
06:59 06:59 06:59
Intake Total 680 / 680 1919 240 / 240
Output Total 725 / 725
Balance -45 / -45 1919 240 / 240
Physical Exam
-
General: No Apparent Distress
HEENT: Normocephalic and Atraumatic
Respiratory: Negative Wheezes or Rales
Cardiac: Regular Rhythm and S1/S2
GI: Soft
Genito-urinary: No Costovertebral Tender
Musculoskeletal: No Edema
Neuro: AO x 3
Psych: Calm
Data Reviewed
-
Total Time Spent with Patient (in minutes): 42
Labs: Labs Reviewed by me
[2023-12-01] MEDS: NOVOLOG FLEXPEN-MODERATE RESISTANCE 7 UNITS SC (12:30)
--- NOTE | 2023-12-01 12:36 | W.DS.TRANS ---
DC Summary - Gum Remover
-
Discharge Instructions:
Discharge Diagnosis/Procedures Right femur fracture s/p Right hip
intramedullary nailing on 11/25
Recent COPD exacerbation
Diet Diabetic, Carb Controlled,2 Gram Sodium,Restrict
fluids to 64 oz
Activity As tolerated
Additional Activity weight bearing as tolerated RLE
Bathing Restrictions None
Other Services OT,PT
Instructions:
Stand-Alone Forms:
Changes to Home Medications: No
Discharge Medications:
DC Medications w/original date entered in [employer]
carvedilol 6.25 mg tablet 6.25 mg PO BID Blood pressure 08/10/19
furosemide 40 mg tablet 40 mg PO DAILY Fluid retention/Swelling 05/16/21
pantoprazole 40 mg tablet,delayed release 40 mg PO DAILY Gastrointestinal issue 05/16/21
ergocalciferol (vitamin D2) 1,250 mcg (50,000 unit) capsule 1,250 mcg PO .3 TIMES A MONTH Supplement 09/03/22
albuterol sulfate 90 mcg/actuation aerosol inhaler 2 puff inhalation R Q6HPRN PRN wheezing 11/21/23
atorvastatin 20 mg tablet 20 mg PO HS High Cholesterol 11/21/23
betamethasone dipropionate 0.05 % topical cream 1 applic topical BID apply to face 11/21/23
cyanocobalamin (vitamin B-12) 1,000 mcg/mL injection solution 1,000 mcg IM QMONTH vitamin repletion 11/21/23
evolocumab 140 mg/mL subcutaneous pen injector (Repatha SureClick) 140 mg SC Q2W High Cholesterol 11/21/23
glycopyrrolate 9 mcg-formoterol 4.8 mcg HFA aerosol inhaler (Bevespi Aerosphere) 2 puff inhalation R BIDPRN PRN sob 11/21/23
insulin aspart U-100 100 unit/mL (3 mL) subcutaneous pen (Novolog FlexPen U-100 Insulin aspart) 0 sliding scale dose SC AC Diabetes 11/21/23
insulin degludec 100 unit/mL (3 mL) subcutaneous pen (Tresiba FlexTouch U-100 insulin) 44 unit SQ HS Diabetes 11/21/23
ketoconazole 2 % shampoo 1 applic topical Q48H scalp 11/21/23
ketoconazole 2 % topical cream 1 applic topical BID PRN apply to face 11/21/23
azithromycin 250 mg tablet 500 mg PO DAILY #5 tabs 11/23/23
guaifenesin 600 mg tablet, extended release 12 hr 600 mg PO Q12 #30 tabs 11/23/23
ipratropium 0.5 mg-albuterol 3 mg (2.5 mg base)/3 mL nebulization soln 3 ml inhalation R Q4HPRN PRN shortness of breath/wheezing #90 mL 11/23/23
acetaminophen 325 mg tablet 650 mg PO Q4HWA #100 tabs 12/01/23
aspirin 325 mg tablet 325 mg PO DAILY #30 tabs 12/01/23
docusate sodium 100 mg capsule 100 mg PO BID PRN constipation #60 caps 12/01/23
oxycodone 5 mg tablet 5 mg PO Q4HPRN PRN mod pain #10 tabs 12/01/23
prednisone 10 mg tablet 10 mg PO DIRECTED #9 tabs 12/01/23
sennosides 8.6 mg tablet (Senna Laxative) 17.2 mg PO HS PRN Constipation #60 tabs 12/01/23
Home Medication Changes
Pending Results: No
Total time spent discharging patient (in min): 42
[2023-12-01] MEDS: LOKELMA 10 GRAM PO (13:13)
[2023-12-01 15:24] VITALS: BP 115/57
== END 2023-12-01 17:02 | DRG 481 ==
LOC: 2 SOUTH 02:54
PROVIDERS: Internal Medicine; ADMITTING PHYSICIAN Hospitalist; ATTENDING PHYSICIAN Internal Medicine; CONSULT PHYSICIAN Orthopaedic Surgery; EMERGENCY PHYSICIAN Emergency Medicine; FAMILY PHYSICIAN Internal Medicine
PROC: 0QS606Z Reposition Right Upper Femur with Intramedullary Internal Fixation Device, Open Approach (ICD-10-PCS; 2023-11-26)
DX: S72.141A Displaced intertrochanteric fracture of right femur, initial encounter for closed fracture (principal); D62 Acute posthemorrhagic anemia; E87.1 Hypo-osmolality and hyponatremia; I13.0 Hypertensive heart and chronic kidney disease with heart failure and stage 1 through stage 4 chronic kidney disease, or unspecified chronic kidney disease; I50.22 Chronic systolic (congestive) heart failure; K51.90 Ulcerative colitis, unspecified, without complications; J44.9 Chronic obstructive pulmonary disease, unspecified; I25.10 Atherosclerotic heart disease of native coronary artery without angina pectoris; E11.41 Type 2 diabetes mellitus with diabetic mononeuropathy; E78.00 Pure hypercholesterolemia, unspecified; G89.29 Other chronic pain; K21.9 Gastro-esophageal reflux disease without esophagitis; N18.32 Chronic kidney disease, stage 3b; L40.9 Psoriasis, unspecified; D63.1 Anemia in chronic kidney disease; M54.9 Dorsalgia, unspecified; W19.XXXA Unspecified fall, initial encounter; Y93.9 Activity, unspecified; Y92.009 Unspecified place in unspecified non-institutional (private) residence as the place of occurrence of the external cause; I95.9 Hypotension, unspecified; R06.89 Other abnormalities of breathing; K59.00 Constipation, unspecified; E87.5 Hyperkalemia; R09.02 Hypoxemia; G57.93 Unspecified mononeuropathy of bilateral lower limbs; R59.1 Generalized enlarged lymph nodes; Z85.46 Personal history of malignant neoplasm of prostate; Z79.82 Long term (current) use of aspirin; Z87.891 Personal history of nicotine dependence; Z95.1 Presence of aortocoronary bypass graft; Z92.3 Personal history of irradiation; Z79.4 Long term (current) use of insulin; Z79.52 Long term (current) use of systemic steroids; Z86.73 Personal history of transient ischemic attack (TIA), and cerebral infarction without residual deficits
CPT/HCPCS: 71045; 73502; 73552; 76000; 80048; 80053; 82962; 83540; 83550; 85025; 85027; 86850; 86900; 86901; 93005; 94640; 94667; 94668; 96374; 97112; 97163; 97167; 97530; 97535; 99284; C1713; C1769

== ENCOUNTER → 2023-12-06 12:17 | Outpatient (REF) | payer OTHER, SELFPAY ==
[2023-12-06 13:10] LABS: % Basophils 0.1 % (0-2); % Eosinophils 1.5 % (0-6); % Immature Granulocytes 2.1 % (0-0.5); % Monocytes 6.2 % (1.7-9.3); % Neutrophils 75.1 % (42.2-75.2); Absolute Eosinophils 0.2 10^3/uL (0-0.7); Absolute Immature Granulocytes 0.2 10^3/uL (0-0.05); Absolute Lymphocytes 1.8 10^3/uL (1.2-3.4); Absolute Monocytes 0.7 10^3/uL (0.1-0.6); Absolute Neutrophils 8.8 10^3/uL (1.4-6.5); Hematocrit 27.2 % (39.0-52.0); Hemoglobin 8.5 g/dL (13.0-18.0); Mean Corp Hgb Conc. 31.3 g/dL (33.0-37.0); Mean Corpuscular Hgb 29.6 pg (27.0-31.0); Mean Corpuscular Volume 94.8 fL (80.0-94.0); Nucleated Red Blood Cells % 0 % (-); Platelet Count 310 10^3/uL (130-400); Red Blood Cell Count 2.87 10^6/uL (4.70-6.10); Red Cell Dist. Width 14.3 % (11.5-14.5); White Blood Cell Count 11.7 10^3/uL (4.8-10.8)
[2023-12-06 13:18] LABS: Blood Urea Nitrogen 47 mg/dl (9-20); Calcium 7.8 mg/dl (8.4-10.2); Carbon Dioxide 25 mmol/L (22-30); Chloride 106 mmol/L (98-107); Glucose 138 mg/dl (70-99); Potassium 4.2 mmol/L (3.5-5.1); Sodium 135 mmol/L (135-145); eGFR 54.51
== END ==
LOC: OLABPG 12:17
PROVIDERS: ATTENDING PHYSICIAN Family Medicine
DX: S72.141D Displaced intertrochanteric fracture of right femur, subsequent encounter for closed fracture with routine healing (principal); J44.9 Chronic obstructive pulmonary disease, unspecified; E11.9 Type 2 diabetes mellitus without complications; I25.10 Atherosclerotic heart disease of native coronary artery without angina pectoris; I50.20 Unspecified systolic (congestive) heart failure; I13.0 Hypertensive heart and chronic kidney disease with heart failure and stage 1 through stage 4 chronic kidney disease, or unspecified chronic kidney disease; D64.9 Anemia, unspecified; E87.1 Hypo-osmolality and hyponatremia; N18.9 Chronic kidney disease, unspecified
CPT/HCPCS: 36415; 80048; 85025

== ENCOUNTER → 2024-01-10 15:20 | Outpatient (REF) | payer OTHER, SELFPAY | LOC: RAD 15:20 | PROVIDERS: ATTENDING PHYSICIAN Orthopaedic Surgery; FAMILY PHYSICIAN Internal Medicine | DX: M79.89 Other specified soft tissue disorders (principal) | CPT/HCPCS: 93971 ==

== ENCOUNTER → 2024-01-12 12:50 | Outpatient (REF) | payer OTHER, SELFPAY | LOC: WOUND 12:50 | PROVIDERS: ATTENDING PHYSICIAN Surgery; FAMILY PHYSICIAN Internal Medicine | DX: L89.620 Pressure ulcer of left heel, unstageable (principal); L89.612 Pressure ulcer of right heel, stage 2; L89.312 Pressure ulcer of right buttock, stage 2; E11.621 Type 2 diabetes mellitus with foot ulcer; L97.522 Non-pressure chronic ulcer of other part of left foot with fat layer exposed; I73.9 Peripheral vascular disease, unspecified; I50.22 Chronic systolic (congestive) heart failure; Z79.4 Long term (current) use of insulin | CPT/HCPCS: 73650; 99204 ==

== ENCOUNTER → 2024-01-12 13:42 | Outpatient (REF) | payer OTHER, SELFPAY | LOC: RAD 13:42 | PROVIDERS: ATTENDING PHYSICIAN Surgery; FAMILY PHYSICIAN Internal Medicine | DX: L89.620 Pressure ulcer of left heel, unstageable (principal) | CPT/HCPCS: 73650 ==

== ENCOUNTER → 2024-01-19 10:56 | Outpatient (REF) | payer OTHER, SELFPAY | LOC: WOUND 10:56 | PROVIDERS: ATTENDING PHYSICIAN Surgery; FAMILY PHYSICIAN Internal Medicine | DX: L89.620 Pressure ulcer of left heel, unstageable (principal); L89.612 Pressure ulcer of right heel, stage 2; L97.522 Non-pressure chronic ulcer of other part of left foot with fat layer exposed; E11.621 Type 2 diabetes mellitus with foot ulcer; I87.2 Venous insufficiency (chronic) (peripheral); I73.9 Peripheral vascular disease, unspecified; I50.22 Chronic systolic (congestive) heart failure; Z79.4 Long term (current) use of insulin | CPT/HCPCS: 11042; 97597 ==

== ENCOUNTER → 2024-01-26 09:55 | Outpatient (REF) | payer OTHER, SELFPAY | LOC: WOUND 09:55 | PROVIDERS: ATTENDING PHYSICIAN Surgery; FAMILY PHYSICIAN Internal Medicine | DX: L89.620 Pressure ulcer of left heel, unstageable (principal); L89.612 Pressure ulcer of right heel, stage 2; L97.522 Non-pressure chronic ulcer of other part of left foot with fat layer exposed; L89.322 Pressure ulcer of left buttock, stage 2; E11.621 Type 2 diabetes mellitus with foot ulcer; I87.2 Venous insufficiency (chronic) (peripheral); I73.9 Peripheral vascular disease, unspecified; I50.22 Chronic systolic (congestive) heart failure; Z79.4 Long term (current) use of insulin | CPT/HCPCS: 99214 ==

== ENCOUNTER → 2024-02-02 10:22 | Outpatient (REF) | payer OTHER, SELFPAY | LOC: WOUND 10:22 | PROVIDERS: ATTENDING PHYSICIAN Surgery; FAMILY PHYSICIAN Internal Medicine | DX: L89.620 Pressure ulcer of left heel, unstageable (principal); L89.612 Pressure ulcer of right heel, stage 2; L97.522 Non-pressure chronic ulcer of other part of left foot with fat layer exposed; L89.322 Pressure ulcer of left buttock, stage 2; L89.312 Pressure ulcer of right buttock, stage 2; E11.621 Type 2 diabetes mellitus with foot ulcer; I87.2 Venous insufficiency (chronic) (peripheral); I73.9 Peripheral vascular disease, unspecified; Z79.4 Long term (current) use of insulin; I50.22 Chronic systolic (congestive) heart failure | CPT/HCPCS: 11042 ==

== ENCOUNTER → 2024-02-09 12:29 | Outpatient (REF) | payer OTHER, SELFPAY | LOC: RAD 12:29 | PROVIDERS: ATTENDING PHYSICIAN Surgery; FAMILY PHYSICIAN Internal Medicine; OTHER PHYSICIAN Internal Medicine Cardiovascular Disease; REFERRING PHYSICIAN Internal Medicine Endocrinology, Diabetes & Metabolism | DX: L89.612 Pressure ulcer of right heel, stage 2 (principal) | CPT/HCPCS: 73650 ==

== ENCOUNTER → 2024-02-13 09:01 | Outpatient (REF) | payer OTHER, SELFPAY | LOC: WOUND 09:01 | PROVIDERS: ATTENDING PHYSICIAN Surgery; FAMILY PHYSICIAN Internal Medicine | DX: L89.620 Pressure ulcer of left heel, unstageable (principal); L89.612 Pressure ulcer of right heel, stage 2; L97.522 Non-pressure chronic ulcer of other part of left foot with fat layer exposed; L89.322 Pressure ulcer of left buttock, stage 2; L89.312 Pressure ulcer of right buttock, stage 2; E11.621 Type 2 diabetes mellitus with foot ulcer; I87.2 Venous insufficiency (chronic) (peripheral); I73.9 Peripheral vascular disease, unspecified; I50.22 Chronic systolic (congestive) heart failure; Z79.4 Long term (current) use of insulin | CPT/HCPCS: 99214 ==

== ENCOUNTER → 2024-02-20 09:59 | Outpatient (REF) | payer OTHER, SELFPAY | LOC: WOUND 09:59 | PROVIDERS: ATTENDING PHYSICIAN Surgery; FAMILY PHYSICIAN Internal Medicine | DX: L89.623 Pressure ulcer of left heel, stage 3 (principal); L89.612 Pressure ulcer of right heel, stage 2; L97.522 Non-pressure chronic ulcer of other part of left foot with fat layer exposed; L89.322 Pressure ulcer of left buttock, stage 2; L89.312 Pressure ulcer of right buttock, stage 2; E11.621 Type 2 diabetes mellitus with foot ulcer; I87.2 Venous insufficiency (chronic) (peripheral); I73.9 Peripheral vascular disease, unspecified; Z79.4 Long term (current) use of insulin; I50.22 Chronic systolic (congestive) heart failure | CPT/HCPCS: 11042; 11045; 99213 ==

== ENCOUNTER → 2024-02-27 10:01 | Outpatient (REF) | payer OTHER, SELFPAY | LOC: WOUND 10:01 | PROVIDERS: ATTENDING PHYSICIAN Surgery; FAMILY PHYSICIAN Internal Medicine | DX: L89.623 Pressure ulcer of left heel, stage 3 (principal); L89.612 Pressure ulcer of right heel, stage 2; L97.522 Non-pressure chronic ulcer of other part of left foot with fat layer exposed; L89.312 Pressure ulcer of right buttock, stage 2; E11.621 Type 2 diabetes mellitus with foot ulcer; I87.2 Venous insufficiency (chronic) (peripheral); I73.9 Peripheral vascular disease, unspecified; I50.22 Chronic systolic (congestive) heart failure; Z79.4 Long term (current) use of insulin | CPT/HCPCS: 11042; 11043 ==

== ENCOUNTER → 2024-03-12 10:32 | Outpatient (REF) | payer OTHER, SELFPAY | LOC: WOUND 10:32 | PROVIDERS: ATTENDING PHYSICIAN Surgery; FAMILY PHYSICIAN Internal Medicine | DX: L89.612 Pressure ulcer of right heel, stage 2 (principal); L97.522 Non-pressure chronic ulcer of other part of left foot with fat layer exposed; E11.621 Type 2 diabetes mellitus with foot ulcer; I87.2 Venous insufficiency (chronic) (peripheral); I73.9 Peripheral vascular disease, unspecified; Z79.4 Long term (current) use of insulin; I50.22 Chronic systolic (congestive) heart failure | CPT/HCPCS: 99213 ==

== ENCOUNTER → 2024-03-14 12:46 | Outpatient (REF) | payer OTHER, SELFPAY | LOC: RAD 12:46 | PROVIDERS: ATTENDING PHYSICIAN Surgery; FAMILY PHYSICIAN Internal Medicine | DX: L89.620 Pressure ulcer of left heel, unstageable (principal); I73.9 Peripheral vascular disease, unspecified; I87.2 Venous insufficiency (chronic) (peripheral) | CPT/HCPCS: 93922; 93925; 93970 ==

== ENCOUNTER → 2024-03-19 10:21 | Outpatient (REF) | payer OTHER, SELFPAY | LOC: WOUND 10:21 | PROVIDERS: ATTENDING PHYSICIAN Surgery; FAMILY PHYSICIAN Internal Medicine | DX: L89.623 Pressure ulcer of left heel, stage 3 (principal); L89.612 Pressure ulcer of right heel, stage 2; L97.522 Non-pressure chronic ulcer of other part of left foot with fat layer exposed; E11.621 Type 2 diabetes mellitus with foot ulcer; I87.2 Venous insufficiency (chronic) (peripheral); I73.9 Peripheral vascular disease, unspecified; I50.22 Chronic systolic (congestive) heart failure; Z79.4 Long term (current) use of insulin | CPT/HCPCS: 11042; 11045; 87070; 87075; 87077; 87186; 87205 ==

== ENCOUNTER → 2024-03-25 14:13 | Outpatient (REF) | payer OTHER, SELFPAY | LOC: WOUND 14:13 | PROVIDERS: ATTENDING PHYSICIAN Surgery; FAMILY PHYSICIAN Internal Medicine | DX: L89.623 Pressure ulcer of left heel, stage 3 (principal); L89.612 Pressure ulcer of right heel, stage 2; L97.522 Non-pressure chronic ulcer of other part of left foot with fat layer exposed; E11.621 Type 2 diabetes mellitus with foot ulcer; I87.2 Venous insufficiency (chronic) (peripheral); I73.9 Peripheral vascular disease, unspecified; I50.22 Chronic systolic (congestive) heart failure; Z79.4 Long term (current) use of insulin | CPT/HCPCS: 11042 ==

== ENCOUNTER 2024-03-28 07:37 | Day surgery (SDC) | payer OTHER, SELFPAY ==
[2024-03-28] VITALS (18 sets, daily range): BP systolic 104–146; BP diastolic 57–79; BMI 28.3
[2024-03-28 08:19] LABS: Hematocrit 30.4 % (39.0-52.0); Hemoglobin 9.9 g/dL (13.0-18.0); Mean Corp Hgb Conc. 32.6 g/dL (33.0-37.0); Mean Corpuscular Volume 92.1 fL (80.0-94.0); Mean Platelet Volume 9.5 fL (7.4-10.4); Platelet Count 262 10^3/uL (130-400); Red Cell Dist. Width 13.6 % (11.5-14.5); White Blood Cell Count 8.1 10^3/uL (4.8-10.8)
[2024-03-28 08:32] LABS: Blood Urea Nitrogen 22 mg/dl (9-20); Carbon Dioxide 29 mmol/L (22-30); Chloride 104 mmol/L (98-107); Glucose 127 mg/dl (70-99); INR 1.19; PT 15.2 Sec (11.4-14.6); Potassium 4.5 mmol/L (3.5-5.1); Sodium 141 mmol/L (135-145); eGFR 45.62
[2024-03-28 08:33] LABS: APTT 38.2 Sec (23.4-35.0)
[2024-03-28 08:38] LABS: Glucose - Point of Care 121 mg/dl (70-99)
--- NOTE | 2024-03-28 09:32 | W.SUR.PREOP ---
Pre-Operative Surgical Note
-
I have examined this patient prior to the performance of the scheduled procedure.
The patient's condition is unchanged from the time of the current History and
Physical and the patient is able to undergo the scheduled procedure.
--- NOTE | 2024-03-28 11:26 | W.SUR.POST ---
Surgical Immediate Post Op
Note
Pre Op Diagnosis: PAD
Post Op Diagnosis: PAD
Procedure Performed: Left lower extremity arteriogram, left balloon angioplasty peroneal, TP trunk, and popliteal arteries. Stent placement to distal left above-knee popliteal artery. Right lower extremity angiogram.
Primary Surgeon: Tank
Anesthesia: Local and sedation
Estimated Blood Loss: 2 cc
Fluids: See anesthesia flowsheet
Drains/Shunts: None
Specimens/Cultures: None
Doppler/Duplex/Angio (Y/N): Y
Complications: None
Operative Findings: Successful stent placement
[2024-03-28] MEDS: PLAVIX 300 MG PO (12:17)
[2024-03-28 12:46] LABS: Glucose - Point of Care 111 mg/dl (70-99)
--- NOTE | 2024-03-28 13:01 | PTCARENOTE ---
Patient appears to have new heart block post procedure. Patient asymptomatic and VSS. COAL WASHER TENDER Vinod and Aubrey aware. EKG taken and results given to COAL WASHER TENDER.
[2024-03-28 15:31] LABS: Glucose - Point of Care 117 mg/dl (70-99)
--- NOTE | 2024-03-28 16:02 | W.PN.UPDATE ---
Update Note
Progress Note Update
Called by nursing staff for concern of rhythm change, obtained twelve-lead EKG. Patient denies nausea, vomiting, chest pain, shortness of breath, and ABD pain. Electrolytes within normal. He endorses that he feels at baseline health with no
complaints. Twelve-lead EKG demonstrating Mobitz type I block, confirmed by cardiology colleague Dr. Regi Wild. Reviewed twelve-lead EKG and physical exam with attending Dr. Palmer Fu. Per attending Dr. Fu no further intervention required, he
was encouraged to keep his cardiology follow-up that is scheduled in 3 weeks.
--- NOTE | 2024-03-29 09:23 | OR.RPT ---
Operative Report
Operative Report
PROCEDURE DATE: 03/28/2024
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
Postoperative diagnosis: Same
Procedure:
1. Duplex assisted right common femoral artery cannulation.
2. Aortogram and pelvic angiogram.
3. Left lower extremity arteriogram with third order vessel catheterization of left peroneal artery via right common femoral artery puncture.
4. Subintimal recanalization of occluded left TP trunk/proximal peroneal artery with balloon angioplasty of TP trunk/peroneal artery with 3 mm angioplasty balloon.
5. Balloon angioplasty of left below the knee, behind knee, above the knee popliteal artery with 3 mm angioplasty balloon.
6. Placement of stent with Interactive Networkslver PTX 5 mm x 60 mm self-expanding drug-eluting stent left distal [id number] popliteal artery.
7. Right lower extremity arteriogram.
8. Supervision and interpretation.
Surgeon: Tank
Business Analytics Specialist: None
Complications: None
Anesthesia: Local, sedation
Fluoroscopy:
13.2 min
64 mGy
13.90 Gy.cm2
Indications for procedure:
Developed bilateral heel decubiti following orthopedic procedure. Left side had bri dry gangrene. Right side healing reasonably well. Noninvasive studies suggested significant left-sided arterial insufficiency. Risk/benefits/alternatives of
angiography were discussed. Patient understood all wish to proceed.
Description of procedure:
Patient was identified, brought to the operating room. Placed on the table in the supine position. After the adequate administration of anesthesia, the patient was prepped and draped in the standard surgical fashion. A standard preoperative
timeout was undertaken and everybody was in agreement with the plan.
The right common femoral artery was accessed with a micropuncture kit under direct duplex ultrasound guidance. A 5 Serbian sheath was then advanced over a 0.035 inch wire, and a muñoz's hook catheter was advanced into the abdominal aorta.
Aortogram and pelvic angiogram was obtained. Findings as follows:
Patent infrarenal and bilateral common and external iliac arteries with moderate atherosclerosis throughout. But no severe stenosis.
Using a floppy angled hydrophilic wire, the left common femoral artery was cannulated and the catheter was advanced. Left lower extremity arteriogram was obtained. Findings as follows:
Common femoral artery: Patent with no significant stenosis.
Profunda femoris artery: Patent with no significant stenosis
Superficial femoral artery: Patent with some luminal irregularities in the midsegment with mild to moderate stenosis but nothing over 50%.
Popliteal artery: Severe string-like greater than 90% stenosis in the distal above-knee popliteal artery. The behind knee popliteal artery then occluded. There is reconstitution noted in the tibioperoneal trunk with what appeared to be
single-vessel peroneal artery runoff. In late filling collaterals did fill the distal anterior tibial artery but was a very diseased artery and did not appear to cross the foot to become the dorsalis pedis. Just collaterals seen filling the foot.
At this point I selectively cannulated the superficial femoral artery. I exchanged for a Storq wire and an up and over 6 Serbian sheath. The patient was given 6000 units of intravenous heparin. Next under roadmap assisted guidance I was able to
cannulate the behind the knee popliteal artery (traversing through the stenosis in the distal above-knee popliteal artery). Now under roadmap assisted guidance I was able to actually created J loop and subintimal a traverse the occlusion of the
below-knee popliteal artery and tibioperoneal trunk and proximal peroneal artery. I was able to gain wire access into the peroneal artery. I passed the catheter and angiogram confirmed I was in the true lumen. I now exchanged for a 0.014 inch YIELD IMPROVEMENT ENGINEER
wire. Balloon angioplasty of the peroneal proximally, TP trunk, below-knee popliteal artery was performed with a 3 mm balloon. I extended this angioplasty also then again up to the above-knee popliteal artery. Completion angiogram now
demonstrated a good result in the TP trunk/peroneal artery and the below-knee popliteal artery. However there is still significant residual stenosis in the distal above-knee popliteal artery. Therefore I exchanged back for a 0.035 inch wire and
then secondarily stented that segment with a 5 mm x 60 mm Zilver PTX stent. This was post angioplasty with a 4 mm angioplasty balloon. Completion angiogram demonstrated good result with resolution of the stenosis in the above-knee popliteal
artery. However there was a little bit of mild vasospasm or stenosis at the distal edge of the stent into the more distal popliteal artery behind the knee. In addition the origin of the peroneal artery appeared to have a mild stenosis again. It
may have been the obliquity. However just to be safe I reangioplasty that segment as well as the popliteal artery with a 3 mm balloon. Now completion angiogram demonstrated excellent result. Good flow via the single-vessel peroneal runoff. At
this point I felt that there is nothing further I could render or needed to render from a revascularization perspective. I then withdrew my sheath to the right external iliac artery. Right femoral angiogram demonstrated good puncture in the right
common femoral artery. Patent flow in the common femoral/profunda/proximal SFA. The SFA and popliteal artery on the right side appeared to be patent and the anterior tibial artery appeared occluded but there was proximal flow into the
tibioperoneal trunk and the peroneal/PT artery. I did not visualize distal to here as I do use a fair amount of contrast already. At this point is very satisfied. I exchanged for a short 6 Serbian sheath. The wires and catheters were withdrawn.
The patient was taken to the recovery room where the sheath was withdrawn and manual pressure was applied. Hemostasis was fully achieved.
The patient tolerated procedure well.
== END 2024-03-28 17:48 | disposition home or self-care (01) ==
LOC: CATH 07:37
PROVIDERS: ATTENDING PHYSICIAN Surgery Vascular Surgery
DX: I70.244 Atherosclerosis of native arteries of left leg with ulceration of heel and midfoot (principal); L97.429 Non-pressure chronic ulcer of left heel and midfoot with unspecified severity; I70.234 Atherosclerosis of native arteries of right leg with ulceration of heel and midfoot; L97.419 Non-pressure chronic ulcer of right heel and midfoot with unspecified severity; Z79.82 Long term (current) use of aspirin; Z79.4 Long term (current) use of insulin; Z79.899 Other long term (current) drug therapy; I25.10 Atherosclerotic heart disease of native coronary artery without angina pectoris; Z95.1 Presence of aortocoronary bypass graft; I50.9 Heart failure, unspecified; E11.9 Type 2 diabetes mellitus without complications
CPT/HCPCS: 37228; 37226; 35656; 75625; 75716; 80048; 82962; 85027; 85610; 85730; 86850; 86900; 86901; 93005; C1725; C1769; C1874; C1887; C1894; Q9967

== ENCOUNTER → 2024-04-01 13:22 | Outpatient (REF) | payer OTHER, SELFPAY | LOC: WOUND 13:22 | PROVIDERS: ATTENDING PHYSICIAN Surgery; FAMILY PHYSICIAN Internal Medicine | DX: L89.623 Pressure ulcer of left heel, stage 3 (principal); L89.612 Pressure ulcer of right heel, stage 2; L97.522 Non-pressure chronic ulcer of other part of left foot with fat layer exposed; E11.621 Type 2 diabetes mellitus with foot ulcer; I87.2 Venous insufficiency (chronic) (peripheral); I73.9 Peripheral vascular disease, unspecified; I50.22 Chronic systolic (congestive) heart failure; Z79.4 Long term (current) use of insulin | CPT/HCPCS: 11042; 11043 ==

== ENCOUNTER → 2024-04-03 07:13 | Outpatient (REF) | payer OTHER, SELFPAY | LOC: MRI 07:13 | PROVIDERS: ATTENDING PHYSICIAN Surgery; FAMILY PHYSICIAN Internal Medicine | DX: L89.620 Pressure ulcer of left heel, unstageable (principal) | CPT/HCPCS: 73718 ==

== ENCOUNTER → 2024-04-03 07:16 | Outpatient (REF) | payer OTHER, SELFPAY | LOC: MRI 07:16 | PROVIDERS: ATTENDING PHYSICIAN Surgery; FAMILY PHYSICIAN Internal Medicine | DX: L89.612 Pressure ulcer of right heel, stage 2 (principal) | CPT/HCPCS: 73718 ==

== ENCOUNTER → 2024-04-08 07:35 | Outpatient (REF) | payer OTHER, SELFPAY | LOC: WOUND 07:35 | PROVIDERS: ATTENDING PHYSICIAN Surgery; FAMILY PHYSICIAN Internal Medicine | DX: L89.623 Pressure ulcer of left heel, stage 3 (principal); L89.612 Pressure ulcer of right heel, stage 2; L97.522 Non-pressure chronic ulcer of other part of left foot with fat layer exposed; E11.621 Type 2 diabetes mellitus with foot ulcer; I87.2 Venous insufficiency (chronic) (peripheral); I73.9 Peripheral vascular disease, unspecified; I50.22 Chronic systolic (congestive) heart failure; Z79.4 Long term (current) use of insulin | CPT/HCPCS: 99213 ==

== ENCOUNTER → 2024-04-15 10:23 | Outpatient (REF) | payer OTHER, SELFPAY | LOC: WOUND 10:23 | PROVIDERS: ATTENDING PHYSICIAN Surgery | DX: L89.623 Pressure ulcer of left heel, stage 3 (principal); L89.612 Pressure ulcer of right heel, stage 2; L97.522 Non-pressure chronic ulcer of other part of left foot with fat layer exposed; E11.621 Type 2 diabetes mellitus with foot ulcer; I87.2 Venous insufficiency (chronic) (peripheral); I73.9 Peripheral vascular disease, unspecified; Z79.4 Long term (current) use of insulin; I50.22 Chronic systolic (congestive) heart failure | CPT/HCPCS: 11043 ==

== ENCOUNTER → 2024-04-22 10:25 | Outpatient (REF) | payer OTHER, SELFPAY | LOC: WOUND 10:25 | PROVIDERS: ATTENDING PHYSICIAN Surgery; FAMILY PHYSICIAN Internal Medicine | DX: L89.623 Pressure ulcer of left heel, stage 3 (principal); L89.612 Pressure ulcer of right heel, stage 2; L97.522 Non-pressure chronic ulcer of other part of left foot with fat layer exposed; E11.621 Type 2 diabetes mellitus with foot ulcer; I87.2 Venous insufficiency (chronic) (peripheral); I73.9 Peripheral vascular disease, unspecified; I50.22 Chronic systolic (congestive) heart failure; Z79.4 Long term (current) use of insulin | CPT/HCPCS: 11043 ==

== ENCOUNTER → 2024-05-02 09:52 | Outpatient (REF) | payer OTHER, SELFPAY | LOC: WOUND 09:52 | PROVIDERS: ATTENDING PHYSICIAN Surgery; FAMILY PHYSICIAN Internal Medicine | DX: L89.623 Pressure ulcer of left heel, stage 3 (principal); L89.612 Pressure ulcer of right heel, stage 2; L97.522 Non-pressure chronic ulcer of other part of left foot with fat layer exposed; E11.621 Type 2 diabetes mellitus with foot ulcer; I87.2 Venous insufficiency (chronic) (peripheral); I73.9 Peripheral vascular disease, unspecified; I50.22 Chronic systolic (congestive) heart failure; Z79.4 Long term (current) use of insulin | CPT/HCPCS: 11043 ==

== ENCOUNTER 2024-05-11 23:28 | Emergency (ER) | payer OTHER, SELFPAY ==
[2024-05-11 23:30] VITALS: BP 120/56
--- NOTE | 2024-05-11 23:49 | ED.GENMED ---
History of Present Illness
General
Chief Complaint: Male Genito-Urinary Symptoms
Time Seen by Provider: 05/11/24 23:39
History of Present Illness
History of Present Illness:
84-year-old male presents the emergency department for evaluation of scrotal bleeding that has been ongoing for the past 2 to 3 days. He is not sure exactly where the bleeding is coming from but notes that his depends have blood in them whenever he
changes them. He is chronically On antiplatelets due to peripheral arterial disease and did undergo an arteriogram with stenting in March at this hospital. Denies any lightheadedness
Past History
Past History
ED Past Medical History: CAD, Cancer (prostate age 50), CHF, COPD, GERD, Hypercholesterolemia, NIDDM, Renal failure, Other (neuropathy, hypotension, chronic back pain, mediatinal lymphadenopathy, psoriasis) and Other (ulcerative colitis)
ED Past Surgical History: Cardiac (CABG), Orthopedic (back surgery) and Urological (prostate with radiation therapy)
Social History
Tobacco: Former smoker
Alcohol: None
Drug: None
Personal:
Living: with family
Employment: Retired
Family History
Family History: Diabetes
Review of Systems
Review of Systems
Allergies reviewed?: Yes
All Other Systems: ROS reviewed and negative except as documented in HPI and ROS
Phy Exam
Physical Exam
Physical Exam:
GEN: Well appearing, NAD, WDWN
HEENT: Oral mucosa moist, no scleral icterus
Cardiac: Regular rate
Lung: No respiratory distress, no tachypnea
: Scant bleeding from the posterior scrotum, significant erythema and tenderness to palpation
MSK: No gross deformity or injuries
Skin: Good color, no pallor or jaundice, no rashes
Neuro: AO x3, moves all extremities freely
Psych: Calm, cooperative
Course
Orders/Labs/Results
Orders:
Orders
05/11/24 23:58
Ketoconazole [Nizoral 2% Cream] See Dose Instructions TOPICAL NOW STA
Vital Signs
Initial and Last Documented VS:
Initial Vital Signs
Temp Pulse Resp BP Pulse Ox
97.8 F 80 22 120/56 96
05/11/24 23:30 05/11/24 23:30 05/11/24 23:30 05/11/24 23:30 05/11/24 23:30
Last Documented Vital Signs
Temp Pulse Resp BP Pulse Ox
97.8 F 80 22 120/56 96
05/11/24 23:30 05/11/24 23:30 05/11/24 23:30 05/11/24 23:30 05/11/24 23:30
MDM/Problems Addressed
MDM/Problems Addressed:
Likely fungal dermatitis as the patient wears depends, skin irritation is causing the bleeding which is quite minor at this time.Will treat with topical antifungals
*Critical Care Note
Total Time (30-74mins, 75-104mins- exclusive of procedures): Not Applicable
ED Attending Note
-
Portions of this chart may have been created with voice recognition software.� Occasional wrong word or��sound alike� substitutions may have occurred due to the inherent limitations of voice recognition software.
Discharge Plan
Departure
Patient Disposition: Home (Routine Discharge)
Date of Disposition: 05/11/24
Time of Disposition: 23:49
Patient with high blood pressure during this ER visit?: No
Discharge Problem:
Candidal dermatitis
Instructions: Fungal Skin Rash (DC)
Prescriptions:
New
ketoconazole 2 % cream
1 applic topical BID 14 Days Qty: 30 0RF
No Action
carvedilol 6.25 MG tablet
6.25 mg PO BID
pantoprazole 40 MG tablet,delayed release (DR/EC)
40 mg PO DAILY
furosemide 40 MG tablet
40 mg PO DAILY
ergocalciferol (vitamin D2) 1,250 mcg (50,000 unit) Capsule
1,250 mcg PO .3 TIMES A MONTH
Patient Comments:
11/21/2023, Pt. takes this med. 3 Saturdays of each month.
atorvastatin 20 mg Tablet
20 mg PO HS
betamethasone dipropionate 0.05 % Cream
1 applic TOPICAL BID
albuterol sulfate 90 mcg/actuation Hfa Aerosol Inhaler
2 puff INHALATION R Q6HPRN PRN (Reason: wheezing)
Repatha SureClick 140 mg/mL Pen Injector
140 mg SC Q2W
Bevespi Aerosphere 9-4.8 mcg Hfa Aerosol Inhaler
2 puff INHALATION R BIDPRN PRN (Reason: sob)
insulin aspart U-100 [Novolog FlexPen U-100 Insulin] 100 unit/mL (3 mL) insulin pen
0 sliding scale dose SC AC
Patient Comments:
11/21/2023, pt. uses sliding scale but does not know what it is.
Rx Instructions:
w/meals
insulin degludec [Tresiba FlexTouch U-100] 100 UNIT/ML insulin pen
40 unit SQ HS
ipratropium-albuterol 0.5 mg-3 mg(2.5 mg base)/3 mL Solution For Nebulization
3 ml inhalation R Q4HPRN PRN (Reason: shortness of breath/wheezing) Qty: 90 0RF
oxycodone 5 mg Tablet
5 mg PO Q4HPRN PRN (Reason: mod pain) Qty: 10 0RF
aspirin 81 mg Tablet,Delayed Release (Dr/Ec)
81 mg PO DAILY
losartan 25 mg Tablet
25 mg PO DAILY
acetaminophen 325 mg tablet
650 mg PO PRN PRN (Reason: pain)
clopidogrel 75 mg Tablet
75 mg PO DAILY Qty: 90 0RF
Activity Restrictions/Additional Instructions:
Change diaper often
Use the cream for 2 weeks
The amount of bleeding is not concerning at this time. Please continue your Eliquis
Interventions
Interventions:
*Risk Screen - Suicide Last Done: 05/11/24 23:30
*Neglect/Abuse Screening Last Done: 05/11/24 23:30
Discharge Date and Time
Print Language: SERBIAN
[2024-05-12] MEDS: NIZORAL 2% CREAM 1 APPLIC TOPICAL (00:28)
== END 2024-05-12 01:26 | disposition home or self-care (01) ==
LOC: EMR 23:28
PROVIDERS: EMERGENCY PHYSICIAN Emergency Medicine; FAMILY PHYSICIAN Internal Medicine
DX: B37.2 Candidiasis of skin and nail (principal); I25.10 Atherosclerotic heart disease of native coronary artery without angina pectoris; I50.9 Heart failure, unspecified; J44.9 Chronic obstructive pulmonary disease, unspecified; K21.9 Gastro-esophageal reflux disease without esophagitis; E78.00 Pure hypercholesterolemia, unspecified; E11.51 Type 2 diabetes mellitus with diabetic peripheral angiopathy without gangrene; Z83.3 Family history of diabetes mellitus; Z87.891 Personal history of nicotine dependence; Z95.1 Presence of aortocoronary bypass graft
CPT/HCPCS: 99282

== ENCOUNTER → 2024-05-13 14:47 | Outpatient (REF) | payer OTHER, SELFPAY | LOC: RAD 14:47 | PROVIDERS: ATTENDING PHYSICIAN Surgery Vascular Surgery; FAMILY PHYSICIAN Internal Medicine | DX: I73.9 Peripheral vascular disease, unspecified (principal) | CPT/HCPCS: 93922; 93925 ==

== ENCOUNTER → 2024-05-16 12:54 | Outpatient (REF) | payer OTHER, SELFPAY | LOC: WOUND 12:54 | PROVIDERS: ATTENDING PHYSICIAN Surgery; FAMILY PHYSICIAN Internal Medicine | DX: L89.623 Pressure ulcer of left heel, stage 3 (principal); L89.612 Pressure ulcer of right heel, stage 2; L97.522 Non-pressure chronic ulcer of other part of left foot with fat layer exposed; E11.621 Type 2 diabetes mellitus with foot ulcer; I87.2 Venous insufficiency (chronic) (peripheral); I73.9 Peripheral vascular disease, unspecified; I50.22 Chronic systolic (congestive) heart failure; Z79.4 Long term (current) use of insulin | CPT/HCPCS: 99213 ==

== ENCOUNTER → 2024-05-30 13:28 | Outpatient (REF) | payer OTHER, SELFPAY | LOC: WOUND 13:28 | PROVIDERS: ATTENDING PHYSICIAN Surgery; FAMILY PHYSICIAN Internal Medicine | DX: L89.623 Pressure ulcer of left heel, stage 3 (principal); L89.612 Pressure ulcer of right heel, stage 2; L97.522 Non-pressure chronic ulcer of other part of left foot with fat layer exposed; E11.621 Type 2 diabetes mellitus with foot ulcer; I87.2 Venous insufficiency (chronic) (peripheral); I73.9 Peripheral vascular disease, unspecified; Z79.4 Long term (current) use of insulin; I50.22 Chronic systolic (congestive) heart failure | CPT/HCPCS: 99213 ==

== ENCOUNTER → 2024-06-14 09:50 | Outpatient (REF) | payer OTHER, SELFPAY | LOC: WOUND 09:50 | PROVIDERS: ATTENDING PHYSICIAN Surgery | DX: L89.623 Pressure ulcer of left heel, stage 3 (principal); L89.612 Pressure ulcer of right heel, stage 2; L97.522 Non-pressure chronic ulcer of other part of left foot with fat layer exposed; E11.621 Type 2 diabetes mellitus with foot ulcer; I87.2 Venous insufficiency (chronic) (peripheral); I73.9 Peripheral vascular disease, unspecified; I50.22 Chronic systolic (congestive) heart failure; Z79.4 Long term (current) use of insulin | CPT/HCPCS: 99213 ==

== ENCOUNTER → 2024-07-01 10:01 | Outpatient (REF) | payer OTHER, SELFPAY | LOC: WOUND 10:01 | PROVIDERS: ATTENDING PHYSICIAN Surgery; FAMILY PHYSICIAN Internal Medicine | DX: L89.623 Pressure ulcer of left heel, stage 3 (principal); L89.612 Pressure ulcer of right heel, stage 2; L97.522 Non-pressure chronic ulcer of other part of left foot with fat layer exposed; E11.621 Type 2 diabetes mellitus with foot ulcer; I87.2 Venous insufficiency (chronic) (peripheral); I73.9 Peripheral vascular disease, unspecified; I50.22 Chronic systolic (congestive) heart failure; Z79.4 Long term (current) use of insulin | CPT/HCPCS: 99212 ==

== ENCOUNTER → 2024-09-10 13:14 | Outpatient (REF) | payer OTHER, SELFPAY | LOC: WOUND 13:14 | PROVIDERS: ATTENDING PHYSICIAN Surgery; FAMILY PHYSICIAN Internal Medicine | DX: L89.622 Pressure ulcer of left heel, stage 2 (principal); E11.621 Type 2 diabetes mellitus with foot ulcer; I87.2 Venous insufficiency (chronic) (peripheral); I73.9 Peripheral vascular disease, unspecified; I50.22 Chronic systolic (congestive) heart failure; Z79.4 Long term (current) use of insulin | CPT/HCPCS: 73630; 99214 ==

== ENCOUNTER → 2024-09-26 09:43 | Outpatient (REF) | payer OTHER, SELFPAY | LOC: WOUND 09:43 | PROVIDERS: ATTENDING PHYSICIAN Surgery; FAMILY PHYSICIAN Internal Medicine | DX: L89.622 Pressure ulcer of left heel, stage 2 (principal); E11.621 Type 2 diabetes mellitus with foot ulcer; I87.2 Venous insufficiency (chronic) (peripheral); I73.9 Peripheral vascular disease, unspecified; I50.22 Chronic systolic (congestive) heart failure; Z79.4 Long term (current) use of insulin | CPT/HCPCS: 99212 ==

== ENCOUNTER → 2024-11-20 07:44 | Outpatient (REF) | payer OTHER, SELFPAY | LOC: DHVS 07:44 | PROVIDERS: ATTENDING PHYSICIAN Registered Nurse; FAMILY PHYSICIAN Internal Medicine | DX: I73.9 Peripheral vascular disease, unspecified (principal) | CPT/HCPCS: 93922; 93925 ==

== ENCOUNTER 2024-11-21 12:39 | Inpatient (IN) | payer OTHER, SELFPAY ==
[2024-11-21] VITALS (7 sets, daily range): BP systolic 89–165; BP diastolic 40–87; BMI 29.5; BMI 27.8
--- NOTE | 2024-11-21 10:12 | ED.GENMED ---
History of Present Illness
General
Chief Complaint: Male Genito-Urinary Symptoms
Source: patient
Exam Limitations: none
Time Seen by Provider: 11/21/24 10:04
History of Present Illness
History of Present Illness:
See MDM
Past History
Past History
ED Past Medical History: CAD, Cancer (prostate age 50), CHF, COPD, GERD, Hypercholesterolemia, NIDDM, Renal failure, Other (neuropathy, hypotension, chronic back pain, mediatinal lymphadenopathy, psoriasis) and Other (ulcerative colitis)
ED Past Surgical History: Cardiac (CABG), Orthopedic (back surgery) and Urological (prostate with radiation therapy)
Social History
Tobacco: Former smoker
Alcohol: None
Drug: None
Personal:
Living: with family
Employment: Retired
Family History
Family History: Diabetes
Phy Exam
Physical Exam
Physical Exam:
See MDM
Course
Orders/Labs/Results
Orders:
Orders
11/21/24 10:10
CBI- Treatment PRN
Solution: NSS
Irrigate to Clear?: Yes
Lopez Placement- Treatment ONCE
Reason for insertion: Acute Retention
11/21/24 10:50
Complete Blood Count/With Diff Urgent
Comprehensive Metabolic Panel Urgent
PTT Urgent
Prothrombin Time Urgent
11/21/24 11:16
Urinalysis Reflex To Culture Urgent
Date Specimen was Collected: 11/21/24
Time Specimen was Collected: 11:15
11/21/24 11:23
CefTRIAXone [Rocephin] 1,000 mg IV NOW STA
11/21/24 11:39
Consult Urology [UROLOGY CONSULT] Routine
Consulting Provider: Tony Harris
Was physician already notified: Yes
Abnormal Lab Results
11/21/24
10:50
RBC 3.36 L 10^6/uL
(4.70-6.10)
Hgb 9.8 L g/dL
(13.0-18.0)
Hct 31.0 L %
(39.0-52.0)
MCHC 31.6 L g/dL
(33.0-37.0)
Abs Immat Gran (auto) 0.1 H 10^3/uL
(0-0.05)
Absolute Lymphs (auto) 1.0 L 10^3/uL
(1.2-3.4)
Absolute Monos (auto) 0.7 H 10^3/uL
(0.1-0.6)
Immature Gran % 0.6 H %
(0-0.5)
Lymphocytes % 11.7 L %
(20.5-51.1)
APTT 36.2 H Sec
(23.4-35.0)
BUN 45 H mg/dl
(9-20)
Creatinine 2.0 H mg/dL
(0.7-1.3)
Glucose 192 H mg/dl
(70-99)
AST 14 L U/L
(17-59)
11/21/24 10:50
11/21/24 10:50
Vital Signs
Initial and Last Documented VS:
Initial Vital Signs
Temp Pulse Resp BP Pulse Ox
97.7 F 69 13 89/40 96
11/21/24 09:49 11/21/24 09:49 11/21/24 09:49 11/21/24 09:49 11/21/24 09:49
Last Documented Vital Signs
Temp Pulse Resp BP Pulse Ox
97.7 F 65 8 89/40 99
11/21/24 09:49 11/21/24 10:45 11/21/24 10:45 11/21/24 09:49 11/21/24 10:45
MDM/Problems Addressed
Differential Diagnosis Includes:
HPI and MDM Narrative:
84-year-old male presenting for evaluation of hematuria. This has happened in the past but it has not self resolved. Patient woke up at 3 AM to go to the bathroom and noted that his depends had blood in it. Patient states he felt as if he was
urinating but noticed that it was just blood coming out. He is on aspirin and Plavix but denies any other anticoagulation. On exam, patient does have dried blood at the urethra and in his depends.
Will place catheter and start CBI and discussed case with nephrology. I did discuss differential diet with patient and infection, bladder stone, kidney stone, prostate cancer or bladder/renal cancer. Patient does have a history of prostate
cancer and has underwent brachytherapy. He is currently followed by Dr. Harris
Physical exam
General: Well appearing and non-toxic
HEENT: protecting airway
Neck: appears supple
CV: No evidence of cyanosis
Resp: No accessory muscle use
Abd: Non-distended and nontender
: Dried blood seen at the urethra
Extremities: No deformities
Neuro: alert
Psych: Normal affect
Skin: Intact
Problems Addressed including Acute and Chronic Conditions affecting care:
1. Parminder hematuria
Acuity: acute
Prognosis: stable
Details: Will start CBI to clear urine. Will obtain basic discussed case with urology
Updates
Urine is clearing somewhat with CBI the urine is still bloody. Will give dose of Rocephin and admit
Differential Diagnosis (but not limited to): UTI, bladder cancer, kidney cancer, bladder stone
Testing considered: CT abdomen/pelvis
Drug therapy (if applicable): OTC meds, please see d/c instruction regarding Rx drugs
Amount and/or Complexity of Data Reviewed
Clinical info obtained from: Patient
External data reviewed: N/A
Labs I independently reviewed (but not limited to): Hemoglobin stable
Radiology: N/A
Pulse Ox: not hypoxic
EKG independently reviewed: N/A
Cutting Machine Fixer: N/A
Critical Care: N/A
Risk of Complication:
Social Determinants of health: Good social support
Discussed with other providers: Hospitalist, urologist
Escalation of Care includes Admit/Obs: Given the persistent hematuria, will admit
Occasional wrong word or 'sound a like' substitutions may have occurred due to the inherent limitations of voice recognition software. Read the chart carefully and recognize, using context, where substitutions have occurred.
*Critical Care Note
Total Time (30-74mins, 75-104mins- exclusive of procedures): Not Applicable
ED Attending Note
-
Portions of this chart may have been created with voice recognition software.� Occasional wrong word or��sound alike� substitutions may have occurred due to the inherent limitations of voice recognition software.
Discharge Plan
Departure
Patient Disposition: Admit
Date of Disposition: 11/21/24
Time of Disposition: 11:40
Admit to: Med/Surg
Presentation/result/management discussed w/ accepting MD/DO: Hospitalist
Discharge Problem:
Hematuria
Prescriptions:
No Action
carvedilol 6.25 MG tablet
6.25 mg PO BID
pantoprazole 40 MG tablet,delayed release (DR/EC)
40 mg PO DAILY
furosemide 40 MG tablet
40 mg PO DAILY
ergocalciferol (vitamin D2) 1,250 mcg (50,000 unit) Capsule
1,250 mcg PO .3 TIMES A MONTH
Patient Comments:
11/21/2023, Pt. takes this med. 3 Saturdays of each month.
atorvastatin 20 mg Tablet
20 mg PO HS
betamethasone dipropionate 0.05 % Cream
1 applic TOPICAL BID PRN (Reason: Facial Rash, redness)
albuterol sulfate 90 mcg/actuation Hfa Aerosol Inhaler
2 puff INHALATION R Q6HPRN PRN (Reason: wheezing)
Repatha SureClick 140 mg/mL Pen Injector
140 mg SC Q2W
Bevespi Aerosphere 9-4.8 mcg Hfa Aerosol Inhaler
2 puff INHALATION R BIDPRN PRN (Reason: sob)
insulin aspart U-100 [Novolog FlexPen U-100 Insulin] 100 unit/mL (3 mL) insulin pen
10 - 18 sliding scale dose SC AC
insulin degludec [Tresiba FlexTouch U-100] 100 UNIT/ML insulin pen
20 - 40 unit SQ HS
ipratropium-albuterol 0.5 mg-3 mg(2.5 mg base)/3 mL Solution For Nebulization
3 ml inhalation R Q4HPRN PRN (Reason: shortness of breath/wheezing) Qty: 90 0RF
aspirin 81 mg Tablet,Delayed Release (Dr/Ec)
81 mg PO DAILY
losartan 25 mg Tablet
25 mg PO DAILY
acetaminophen 325 mg tablet
650 mg PO Q6HPRN PRN (Reason: mild pain)
clopidogrel 75 mg Tablet
75 mg PO DAILY Qty: 90 0RF
triamcinolone acetonide 0.1 % cream
1 applic TOPICAL BIDPRN PRN (Reason: bilateral leg rash)
ibuprofen [Motrin IB] 200 mg Tablet
400 mg PO DAILYPRN PRN (Reason: back pain)
Gemtesa 75 mg tablet
75 mg PO DAILY
Interventions
Interventions:
*Risk Screen - Suicide Last Done: 11/21/24 10:48
*Neglect/Abuse Screening Last Done: 11/21/24 10:48
*ED- Fall Risk Assessment Last Done: 11/21/24 10:48
*ED COVID-19 Vaccine History Last Done: 11/21/24 10:48
ED-Male Genitourinary Assessment Last Done: 11/21/24 10:48
Discharge Date and Time
Print Language: ECUADOREAN
[2024-11-21 11:01] LABS: % Basophils 0.7 % (0-2); % Immature Granulocytes 0.6 % (0-0.5); % Lymphocytes 11.7 % (20.5-51.1); % Monocytes 8.2 % (1.7-9.3); % Neutrophils 72.8 % (42.2-75.2); Absolute Basophils 0.1 10^3/uL (0-0.2); Absolute Eosinophils 0.5 10^3/uL (0-0.7); Absolute Immature Granulocytes 0.1 10^3/uL (0-0.05); Absolute Monocytes 0.7 10^3/uL (0.1-0.6); Absolute Neutrophils 6.1 10^3/uL (1.4-6.5); Hemoglobin 9.8 g/dL (13.0-18.0); Mean Corp Hgb Conc. 31.6 g/dL (33.0-37.0); Mean Corpuscular Hgb 29.2 pg (27.0-31.0); Mean Corpuscular Volume 92.3 fL (80.0-94.0); Nucleated Red Blood Cells % 0 % (-); Platelet Count 230 10^3/uL (130-400); Red Blood Cell Count 3.36 10^6/uL (4.70-6.10); Red Cell Dist. Width 13.6 % (11.5-14.5); White Blood Cell Count 8.4 10^3/uL (4.8-10.8)
[2024-11-21 11:14] LABS: ALT (SGPT) 10 U/L (0-50); AST (SGOT) 14 U/L (17-59); Albumin 3.9 g/dl (3.5-5.0); Alkaline Phosphatase 99 U/L (38-126); Blood Urea Nitrogen 45 mg/dl (9-20); Calcium 8.7 mg/dl (8.4-10.2); Carbon Dioxide 23 mmol/L (22-30); Chloride 101 mmol/L (98-107); Estimated Creatinine Clearance 27 ml/min; Glucose 192 mg/dl (70-99); Potassium 3.8 mmol/L (3.5-5.1); Sodium 137 mmol/L (135-145); Total Bilirubin 0.7 mg/dl (0.2-1.3); Total Protein 6.5 g/dl (6.3-8.2)
[2024-11-21 11:15] LABS: INR 1.02; PT 13.9 Sec (11.4-14.6)
[2024-11-21 11:16] LABS: APTT 36.2 Sec (23.4-35.0)
[2024-11-21] MEDS: ROCEPHIN 1000 MG IV (11:34)
[2024-11-21 12:04] LABS: Urine Albumin 4+ (Neg - Trace); Urine Bilirubin Negative (Negative); Urine Character Bloody (Clear); Urine Color Red; Urine Glucose Negative (Negative); Urine Ketone 1+ (Negative); Urine Leukocyte Negative (Negative); Urine Nitrite Negative (Negative); Urine Occult Blood 4+ (Negative); Urine Specific Gravity 1.015 (<1.030); Urine Urobilinogen Negative (Neg - 1+)
--- NOTE | 2024-11-21 12:08 | HPS.HSE ---
Family Physician
-
Family Physician: Marta Ling
Chief Complaint
-
hematuria
History of Present Illness
84-year-old male with PMH for hyperlipidemia, coronary artery disease, overactive bladder, bronchitis, seen, CHF presenting with hematuria since today morning. patient stated lots of clots. denied abdominal pain, urinary urgency or frequency.
patient denied fever, chills, chest pain, sob.denied WEISS, dizzy or syncope.denied chest pain,sob. denied nausea, vomiting and diarrhea.
Patient received a dose of ceftriaxone in ER. CBI initiated in ER. Admitted for further management
Medical History
Past Medical History
Past Medical History: Reports Other
Additional Past Medical History:
Hyperlipidemia
's coronary artery disease
Mild mitral regurgitation
Overactive bladder
Bronchitis
CVA
Congestive heart failure
Ulcerative colitis
Type 2 diabetes
Prostate cancer
Ischemic cardiomyopathy
Past Surgical History: Reports Other
Additional Past Surgical History:
Coronary artery bypass graft
Nasal polyps removed
Hip surgery
Social History
Tobacco: Former Smoker
Alcohol: Occasional
Drug: None
Personal:
Living: With Family
Family History
Family History: Not pertinent
Allergies / Home Medications
Allergies reflects when Allergies were last updated in [facility].
Home Medications with original date entered in [facility]
Allergy/Medication List:
Allergies
Allergy/AdvReac Type Severity Reaction Status Date / Time
spironolactone AdvReac hyperkalemi Verified 11/21/24 09:53
a
Home Medications
carvedilol 6.25 mg tablet 6.25 mg PO BID Blood pressure 08/10/19
furosemide 40 mg tablet 40 mg PO DAILY Fluid retention/Swelling 05/16/21
pantoprazole 40 mg tablet,delayed release 40 mg PO DAILY Gastrointestinal issue 05/16/21
ergocalciferol (vitamin D2) 1,250 mcg (50,000 unit) capsule 1,250 mcg PO .3 TIMES A MONTH Supplement 09/03/22
albuterol sulfate 90 mcg/actuation aerosol inhaler 2 puff inhalation R Q6HPRN PRN wheezing 11/21/23
atorvastatin 20 mg tablet 20 mg PO HS High Cholesterol 11/21/23
betamethasone dipropionate 0.05 % topical cream 1 applic topical BID PRN Facial Rash, redness 11/21/23
evolocumab 140 mg/mL subcutaneous pen injector (Repatha SureClick) 140 mg SC Q2W High Cholesterol 11/21/23
glycopyrrolate 9 mcg-formoterol 4.8 mcg HFA aerosol inhaler (Bevespi Aerosphere) 2 puff inhalation R BIDPRN PRN sob 11/21/23
insulin aspart U-100 100 unit/mL (3 mL) subcutaneous pen (Novolog FlexPen U-100 Insulin aspart) 10 - 18 sliding scale dose SC AC Diabetes 11/21/23
insulin degludec 100 unit/mL (3 mL) subcutaneous pen (Tresiba FlexTouch U-100 insulin) 20 - 40 unit SQ HS Diabetes 11/21/23
ipratropium 0.5 mg-albuterol 3 mg (2.5 mg base)/3 mL nebulization soln 3 ml inhalation R Q4HPRN PRN shortness of breath/wheezing #90 mL 11/23/23
acetaminophen 325 mg tablet 650 mg PO Q6HPRN PRN mild pain 03/27/24
aspirin 81 mg tablet,delayed release 81 mg PO DAILY 03/27/24
losartan 25 mg tablet 25 mg PO DAILY 03/27/24
clopidogrel 75 mg tablet 75 mg PO DAILY #90 tabs 03/28/24
ibuprofen 200 mg tablet (Motrin IB) 400 mg PO DAILYPRN PRN back pain 11/21/24
triamcinolone acetonide 0.1 % topical cream 1 applic topical BIDPRN PRN bilateral leg rash 11/21/24
vibegron 75 mg tablet (Gemtesa) 75 mg PO DAILY 11/21/24
Review of Systems
-
Constitutional: Reports No Symptoms
EENT: Reports No Symptoms
Respiratory: Reports No Symptoms
Cardiac: Reports No Symptoms
Abdomen/GI: Reports No Symptoms
: Reports Bleeding
Musculoskeletal: Reports No Symptoms
Skin: Reports No Symptoms
Neurological: Reports No Symptoms
Endocrine: Reports No Symptoms
Hematologic/Lymphatic: Reports No Symptoms
Psych: Reports No Symptoms
Physical Exam
Vital Signs
Vital Signs
Temp Pulse Resp BP Pulse Ox
97.7 F 65 8 89/40 99
11/21/24 09:49 11/21/24 10:45 11/21/24 10:45 11/21/24 09:49 11/21/24 10:45
Physical Exam
General: Well Developed, Well Nourished and No Apparent Distress
HEENT: NormoCephalic, Moist mucous membranes and Atraumatic
Respiratory: Clear
Cardiac: S1/S2 and Regular Rhythm; No Murmur or Rub
GI: Soft, Non Tender, Non Distended and Normal Bowel Sounds; No Organomegaly
Rectal: Deferred by Provider
Genito-urinary: Bloody Urine and Lopez
Musculoskeletal: No Clubbing, No Cyanosis and No Edema
Skin: No Rash
Neuro: Nonfocal/grossly intact
Laboratory Results
-
11/21/24 10:50
11/21/24 10:50
Laboratory Results
PT 13.9 Sec (11.4-14.6) 11/21/24 10:50
INR 1.02 11/21/24 10:50
APTT 36.2 Sec (23.4-35.0) H 11/21/24 10:50
Total Bilirubin 0.7 mg/dl (0.2-1.3) 11/21/24 10:50
AST 14 U/L (17-59) L 11/21/24 10:50
ALT 10 U/L (0-50) 11/21/24 10:50
Alkaline Phosphatase 99 U/L (38-126) 11/21/24 10:50
Data Reviewed
-
Lab Data: Labs Reviewed by me
Impression/Plan
-
# Hematuria
-Continuous bladder irrigation in place
-Urology consulted
-Trend hemoglobin
-Transfuse if hemoglobin less than 7
-At present hemoglobin stable at 9.8
# Acute kidney injury on chronic kidney disease stage IIIb
-Creatinine 2.0
-Continue to trend BMP
-Fluids continue
# Hypotension likely hypovolemic
-Fluids continued
-Continue to monitor vital signs
-Blood pressure improved
# History of COPD
-Patient not in acute exacerbation
-Nebs from home continued
#DM-II, Uncontrolled
-Sliding scale
-CHO diet
ASCVD
- Stable.�Prior h/o CAD and CVA.
-Hold asa and Plavix
# History of CHF
-Patient not in acute exacerbation
-Hold Lasix
# Hyperlipidemia
-Statin continued
Chronic HFmrEF
- Stable.�No evidence of volume overload on current exam.
- Continue current dose of diuretic.
- Follow I/Os, daily weights, etc and adjust dosing as needed.
Benign Hypertension
- continue Coreg with hold parameter
-Hold losartan due to SAGE
# GERD
-PPI continued
DVT Prophylaxis:�SCDs
Code Status:�Full
--- NOTE | 2024-11-21 12:10 | CONS.URO ---
Consultation
-
Date/Time Consultation Performed: 11/21/24 [id number]
Performing Provider: Steven
Reason for Consultation: hematuria
Medical History
History of Present Illness
84-year-old male presented to ED for hematuria; he awoke up at 3 AM to go to the bathroom and noted that his Depends had blood in it.
He is on aspirin and Plavix
h/o Prostate Cancer s/p brachytherapy seeding at [facility]
Lopez placed and CBI initiated in ED
Past Medical History
Past Medical History: Other (Mild mitral regurgitation. Ulcerative colitis. Type 2 diabetes mellitus. Prostate cancer. Hypertension. CAD (coronary artery disease). CHF (congestive heart failure). Hyperlipidemia.
Ischemic cardiomyopathy. History of tobacco abuse. CVA (cerebral va)
Past Surgical History: Other ( CABG Nasal polypectomy 11/2020 Hip surgery 11/2023)
Allergies/Home Medications
Allergies
Allergy/AdvReac Type Severity Reaction Status Date / Time
spironolactone AdvReac hyperkalemi Verified 11/21/24 09:53
a
Home Medications
�Medication �Instructions �Recorded �Confirmed �Type
carvedilol 6.25 mg tablet 6.25 mg PO BID Blood pressure 08/10/19 11/21/24 History
furosemide 40 mg tablet 40 mg PO DAILY Fluid 05/16/21 11/21/24 History
retention/Swelling
pantoprazole 40 mg tablet,delayed 40 mg PO DAILY Gastrointestinal 05/16/21 11/21/24 History
release issue
ergocalciferol (vitamin D2) 1,250 1,250 mcg PO .3 TIMES A MONTH 09/03/22 11/21/24 History
mcg (50,000 unit) capsule Supplement
albuterol sulfate 90 mcg/actuation 2 puff inhalation R Q6HPRN PRN 11/21/23 11/21/24 History
aerosol inhaler wheezing
atorvastatin 20 mg tablet 20 mg PO HS High Cholesterol 11/21/23 11/21/24 History
betamethasone dipropionate 0.05 % 1 applic topical BID PRN Facial 11/21/23 11/21/24 History
topical cream Rash, redness
evolocumab 140 mg/mL subcutaneous 140 mg SC Q2W High Cholesterol 11/21/23 11/21/24 History
pen injector (traceyedwar HendricksonRajicollins)
glycopyrrolate 9 mcg-formoterol 2 puff inhalation R BIDPRN PRN sob 11/21/23 11/21/24 History
4.8 mcg HFA aerosol inhaler
(Bevespi Aerosphere)
insulin aspart U-100 100 unit/mL 10 - 18 sliding scale dose SC AC 11/21/23 11/21/24 History
(3 mL) subcutaneous pen (Novolog Diabetes
FlexPen U-100 Insulin aspart)
insulin degludec 100 unit/mL (3 20 - 40 unit SQ HS Diabetes 11/21/23 11/21/24 History
mL) subcutaneous pen (Tresiba
FlexTouch U-100 insulin)
ipratropium 0.5 mg-albuterol 3 mg 3 ml inhalation R Q4HPRN PRN 11/23/23 11/21/24 Rx
(2.5 mg base)/3 mL nebulization shortness of breath/wheezing #90 mL
soln
acetaminophen 325 mg tablet 650 mg PO Q6HPRN PRN mild pain 03/27/24 11/21/24 History
aspirin 81 mg tablet,delayed 81 mg PO DAILY 03/27/24 11/21/24 History
release
losartan 25 mg tablet 25 mg PO DAILY 03/27/24 11/21/24 History
clopidogrel 75 mg tablet 75 mg PO DAILY #90 tabs 03/28/24 11/21/24 Rx
ibuprofen 200 mg tablet (Motrin IB) 400 mg PO DAILYPRN PRN back pain 11/21/24 11/21/24 History
triamcinolone acetonide 0.1 % 1 applic topical BIDPRN PRN 11/21/24 11/21/24 History
topical cream bilateral leg rash
vibegron 75 mg tablet (Gemtesa) 75 mg PO DAILY 11/21/24 11/21/24 History
Physical Exam
Vital Signs
Vital Signs
Temp Pulse Resp BP Pulse Ox
97.7 F 68 16 89/40 99
11/21/24 09:49 11/21/24 12:00 11/21/24 12:00 11/21/24 09:49 11/21/24 12:00
Lab / Testing Results
Laboratory Results
11/21/24 10:50
11/21/24 10:50
Physical Exam
elderly male on ED [facility]
General: No Apparent Distress
Genito-urinary: Lopez Catheter (3-way with CBI -- outflow is pink to light red )
Neuro: Awake and Alert
Psych: Calm
Assessment / Plan
-
Radiation-induced Hemorrhagic Cystitis
Rec:
Lopez with CBI
hold anti-platelet tx
consult radiation oncology
Data Reviewed
-
Lab Data: Labs Reviewed
Old Records: Reviewed
[2024-11-21 12:19] LABS: Urine Red Blood Cell >100 /HPF (0-2)
--- NOTE | 2024-11-21 13:27 | W.PN.UPDATE ---
Update Note
Progress Note Update
This is an addendum to the H&P written by Ana Duong on 11/21/2024. Patient seen and examined independently with [employer].
84-year-old male past medical history of prostate cancer status post seeds in 1994, COPD, type 2 diabetes, CAD status post CABG on aspirin and Plavix, PAD status post left lower extremity stent in March, HFrEF, hypertension, CKD 3B, chronic anemia,
hyponatremia, constipation, presenting with hematuria with clots.
No abdominal pain or flank pain. No fever or vomiting. No history of kidney stones.
Blood pressure initially 89/40 continuously improved. Patient given ceftriaxone.
Urinalysis shows bri hematuria without evidence of UTI.
Creatinine of 2 from 1.5.
Patient undergoing CBI. Gentle IV fluids. Hold aspirin and Plavix. Hold Lasix and losartan due to SAGE. Urology consulted.
--- NOTE | 2024-11-21 16:40 | CM ---
Initial assessment completed at bedside
Pharmacy verified: [facility] [address] [facility]
Patient reported he and live in a one floor home; 1 step to enter; has a ramp when entering via garage; bath has walk-in shower with grab bar and shower chair
PLOF: assists with personal care and ADLs; does not drive; ambulates with Rolling Walker
DME: Nebulizer, Rolling Walker, wears Continuous Glucose Monitor
SNF stay @ [facility] 2023; Home Health in the past with [facility]
Family will transport home
Plan: anticipate discharge to home when medically stable; CM will monitor for needs and support accordingly
[2024-11-21 16:42] LABS: Glucose - Point of Care 97 mg/dl (70-99)
[2024-11-21] MEDS: NOVOLOG FLEXPEN-LOW RESISTANCE SC (16:43)
[2024-11-21] MEDS: NSS 1000 IV (16:43)
--- NOTE | 2024-11-21 17:01 | PTCARENOTE ---
Pt admitted into room 427 from ED, ambulated from stretcher to bed with RW and x1 assist. CBI infusing, urine punch-colored with clots. Oriented pt and to room and plan of care. Call hough within reach.
[2024-11-21] MEDS: COREG 6.25 MG PO (20:22)
[2024-11-21 21:14] LABS: Glucose - Point of Care 170 mg/dl (70-99)
[2024-11-21] MEDS: LIPITOR 20 MG PO (22:16)
[2024-11-22 00:45] LABS: Hematocrit 29.9 % (39.0-52.0); Hemoglobin 9.9 g/dL (13.0-18.0)
[2024-11-22 03:45] VITALS: BMI 28.0
[2024-11-22] MEDS: NOVOLOG FLEXPEN-LOW RESISTANCE SC (08:01)
[2024-11-22] MEDS: COREG PO (08:02)
[2024-11-22] MEDS: PROTONIX 40 MG PO (08:02)
[2024-11-22] MEDS: STRIVERDI RESPIMAT 2 PUFF INH (08:05)
[2024-11-22] MEDS: SPIRIVA RESPIMAT 2.5 MCG 2 PUFF INH (08:05)
--- NOTE | 2024-11-22 08:05 | W.PN.URO.CBU ---
Today's Communication / Plan
-
continue CBI
cystoscopy + fulguration if bleeding does not stop within 72 hour
Assessment / Plan
-
Radiation-induced Hemorrhagic Cystitis -- potentiated by anti-platelet therapy
Diagnosis
-
Date of Service: November 22, 2024
-
Patient Diagnosis:
Radiation-induced Hemorrhagic Cystitis
Objective
-
Vital Signs
Temp Pulse Resp BP Pulse Ox
98.2 F 92 20 107/81 95
11/21/24 23:00 11/22/24 08:02 11/21/24 23:00 11/22/24 08:02 11/21/24 23:00
Intake and Output
11/21/24 11/22/24 11/23/24
06:59 06:59 06:59
Output Total 47631 / 50901
Balance -65945 / -98328
Output:
True Urine Output from CBI 30663 / 75905
Physical Exam
-
Lopez: punch-colored urine
[2024-11-22 08:08] LABS: Glucose - Point of Care 136 mg/dl (70-99)
[2024-11-22 08:22] LABS: Hematocrit 30.3 % (39.0-52.0); Hemoglobin 9.6 g/dL (13.0-18.0); Mean Corp Hgb Conc. 31.7 g/dL (33.0-37.0); Mean Corpuscular Hgb 29.1 pg (27.0-31.0); Mean Corpuscular Volume 91.8 fL (80.0-94.0); Mean Platelet Volume 9.9 fL (7.4-10.4); Platelet Count 239 10^3/uL (130-400); Red Cell Dist. Width 13.6 % (11.5-14.5); White Blood Cell Count 11.2 10^3/uL (4.8-10.8)
[2024-11-22 08:28] VITALS: BP 107/81
[2024-11-22 08:46] LABS: Blood Urea Nitrogen 41 mg/dl (9-20); Calcium 8.7 mg/dl (8.4-10.2); Carbon Dioxide 22 mmol/L (22-30); Chloride 108 mmol/L (98-107); Estimated Creatinine Clearance 35 ml/min; Glucose 137 mg/dl (70-99); Sodium 141 mmol/L (135-145); eGFR 45.62
[2024-11-22 10:09] LABS: Glycohemoglobin (HgbA1c) 7.8 % (4.0-5.6)
--- NOTE | 2024-11-22 11:35 | W.PN.HOSP.TC ---
Addendum entered and electronically signed by Frantz Terrazas MD 11/26/24 11:19:
Sacral and buttocks stage 2 pressure injuries POA
Original Note:
Today's Communication/Plan
-
Monitor vital signs
see plan
Monitor hematuria
Continue with CBI
Monitor hemoglobin
Monitor renal function
hold aspirin and plavix for now
Assessment / Plan
Assessment / Plan
General: Well Developed, Well Nourished and No Apparent Distress
HEENT: NormoCephalic, Moist mucous membranes and Atraumatic
Respiratory: Clear
Cardiac: S1/S2 and Regular Rhythm; No Murmur or Rub
GI: Soft, Non Tender, Non Distended and Normal Bowel Sounds
: + sesay with hematuria
Genito-urinary: Bloody Urine and Sesay
Musculoskeletal:No Edema
Neuro: Nonfocal/grossly intact
Hematuria
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
History of prostate cancer status post brachytherapy seeding
Likely exacerbated by antiplatelet therapy
-Continuous bladder irrigation in place
-Urology following
-Trend hemoglobin
-Transfuse if hemoglobin less than 7
# Acute kidney injury on chronic kidney disease stage IIIb
-Creatinine 2.0 on admission; 1.5 today
baseline around 1.5
-Continue to trend BMP
gentle hydration
# Hypotension likely hypovolemic
-Fluids continued
-Continue to monitor vital signs
-Blood pressure improved
# History of COPD
-Patient not in acute exacerbation
-Nebs from home continued
#DM-II, Uncontrolled
-Sliding scale
-CHO diet
a1c 7.8
ASCVD
- Stable.�Prior h/o CAD and CVA.
-Hold asa and Plavix
PAD status post left lower extremity stent in March
hold antiplatelet currently
# Hyperlipidemia
-Statin continued
Chronic HFmrEF
- Stable.�No evidence of volume overload on current exam.
- Continue current dose of diuretic.
- Follow I/Os, daily weights, etc and adjust dosing as needed.
-Hold Lasix for now
Benign Hypertension
- continue Coreg with hold parameter
-Hold losartan due to SAGE
# GERD
-PPI continued
DVT Prophylaxis:�SCDs
Code Status:�Full
Anticipated Discharge: > 48 hours
Subjective/Interval History
-
Date of Service: November 22, 2024
still with hematuria
Objective Data
-
Labs:
Laboratory Results
11/22/24 11/22/24
00:26 07:58
WBC 11.2 H
Hgb 9.9 L 9.6 L
Hct 29.9 L 30.3 L
Plt Count 239
Sodium 141
Potassium 4.0
Chloride 108 H
Carbon Dioxide 22
BUN 41 H
Creatinine 1.5 H
Glucose 137 H
Calcium 8.7
Vital Signs:
Vital Signs
Temp Pulse Resp BP Pulse Ox
98.3 F 92 18 107/81 98
11/22/24 08:28 11/22/24 08:28 11/22/24 08:28 11/22/24 08:28 11/22/24 08:28
I&O
11/21/24 11/22/24 11/23/24
06:59 06:59 06:59
Output Total 61410 / 96883
Balance -50454 / -74280
--- NOTE | 2024-11-22 11:57 | CM ---
Chart reviewed and plan is to home with spouse and [facility], [facility] liaison contacted.
Plan; Home with [facility].
--- NOTE | 2024-11-22 11:58 | VNURNOTE ---
[facility] liaison attempted to meet with patient. He was sound asleep. Will follow up later. [facility] referral placed in [facility]. for home sesay care, medical management.
[2024-11-22] MEDS: NSS 1000 IV (11:59)
[2024-11-22 12:02] LABS: Glucose - Point of Care 181 mg/dl (70-99)
[2024-11-22 12:04] VITALS: BP 115/80
[2024-11-22] MEDS: NOVOLOG FLEXPEN-LOW RESISTANCE 1 UNITS SC (12:57)
--- NOTE | 2024-11-22 14:10 | WOUNDNOTE ---
SACRUM AND BUTTOCKS- POA [phone]
--- NOTE | 2024-11-22 14:11 | WOUNDNOTE ---
SACRUM and BUTTOCK POA 1940 [id number]
--- NOTE | 2024-11-22 14:18 | WOUNDNOTE ---
[facility] RN note: Patient admitted with hematuria
See H&P for complete history.
PMH: Per chart review
Wound Location and type/assessment: Patient admitted with stage 2 PI to sacral crease and scattered open areas on buttocks. Per RNCandy. Patient admitted with hard stool adhering to buttocks and sacral crease. The surrounding skin is blanchable
red. Patient demonstrated fecal incontinence during assessment. He states that he is ambulatory and demonstrated good ability to turn in bed. He was a patient at the [facility] for bilateral heel wounds which are now healed. Heels are intact. He reports
good appetite.
Pressure redistribution devices in place: Centrella Max Air- heels off-loaded with pillows under calves.
Plan: Staff may use Calazime for protection of skin from stool, as patient demonstrates incontinence. No-sting barrier and adhesive foam applied to heels. Encouraged frequent turning and repositioning. Will confirm orders with hospitalist and
update nurse. Updated care plan and will follow as needed.
Note to case management of equipment requested for discharge:
Recommend follow up at wound care center upon discharge.
--- NOTE | 2024-11-22 14:26 | W.PN.UPDATE ---
Update Note
Progress Note Update
Upon Rn's request, I hand-irrigated Lopez until all clots had been evacuated.
CBI - outflow was then pale pink.
--- NOTE | 2024-11-22 14:33 | WOUNDNOTE ---
[facility] RN note: Patient admitted with hematuria
See H&P for complete history.
PMH: Per chart review, SAGE or chronic, type 2 diabetes, PAD LE s/p left extremity stent 03/2024
Wound Location and type/assessment: Patient admitted with stage 2 PI to sacral crease and scattered open areas on buttocks. Per RNCandy. Patient admitted with hard stool adhering to buttocks and sacral crease. The surrounding skin is blanchable
red. Patient demonstrated fecal incontinence during assessment. He states that he is ambulatory and demonstrated good ability to turn in bed. He was a patient at the [facility] for bilateral heel wounds which are now healed. Heels are intact. He reports
good appetite.
Pressure redistribution devices in place: Centrella Max Air- heels off-loaded with pillows under calves.
Plan: Staff may use Calazime for protection of skin from stool, as patient demonstrates incontinence. No-sting barrier and adhesive foam applied to heels. Encouraged frequent turning and repositioning. Will confirm orders with hospitalist and
update nurse. Updated care plan and will follow as needed.
Note to case management of equipment requested for discharge:
Recommend follow up at wound care center upon discharge.
--- NOTE | 2024-11-22 15:17 | VNURNOTE ---
Home Health Liaison met with patient and at bedside to discuss [facility] nurse/therapy, visits, schedule and homebound status. Patient is agreeable and understands that visits at home will be 2-3 x per week to assess and teach medical management.
They are familiar with [facility] services, have had us in the past. Both are aware that [facility] will contact them for start of care in 1-2 days after discharge from . [facility] referral completed in [facility]. Will follow hospitalization and DC dispo plans.
[2024-11-22 16:17] LABS: Glucose - Point of Care 200 mg/dl (70-99)
--- NOTE | 2024-11-22 16:27 | PN.CDI ---
CDI
- -
CDI:
Physician Documentation Request
Admit Date: 11/21/24 12:39
Dear Doctor Mk,
Please review the following and provide your response in the progress notes.
Clinical Indicators:
Pt admitted with radiation-induced hemorrhagic cystitis
11/22 [facility] RN: 'Patient admitted with stage 2 PI to sacral crease and scattered open areas on buttocks.'
Physician documentation of the type and location of wounds is required for compliant documentation. Based on the above clinical findings and your assessment, please provide the following in your progress note:
1. Location of the ulcer/wound, including laterality.
2. Type (etiology) of ulcer/wound:
Sacral and buttocks pressure injuries POA
Sacral and buttocks non-pressure injuries POA
Other
Use of terms such as suspected, likely, concern for, or probable (associated with a specific diagnosis that is being evaluated, monitored, or treated as if it exists) are acceptable and can be coded in the inpatient setting, when documented at the
time of discharge.
Thank you,
Andie Almaraz RN, BSN
CDI Specialist
Michie [employer]
Please use your independent medical judgment in providing your response.
*Source: National Pressure Ulcer Advisory Panel (NPUAP)
[2024-11-22] MEDS: NOVOLOG FLEXPEN-LOW RESISTANCE 2 UNITS SC (16:54)
[2024-11-22 19:00] VITALS: BP 115/61
[2024-11-22] MEDS: LIPITOR 20 MG PO (21:28)
[2024-11-22] MEDS: COREG 6.25 MG PO (21:28)
[2024-11-22] MEDS: LIDOCAINE URO-JET 2% 1 SYRINGE TOPICAL (21:44)
[2024-11-22 22:26] LABS: Glucose - Point of Care 234 mg/dl (70-99)
[2024-11-22] MEDS: VALIUM INJECTION 5 MG IV (22:35)
[2024-11-22 23:00] VITALS: BP 131/66
[2024-11-23] VITALS (7 sets, daily range): BP systolic 117–168; BP diastolic 50–79
--- NOTE | 2024-11-23 02:49 | W.PN.UPDATE ---
Update Note
Progress Note Update
1999 RN reporting that pt was complaining of bladder pressure. Little output from CBI/sesay. RN attempted irrigation which did not produce any blood clots, but also fluid goes in with ease but no return of any of the irrigation.
This provider also tried vigorous attempt at irrigation sesay (500ml sterile water used) and also no return of instilled fluid or and blood clot. RN reached out to urology disaster response director who then suggested exchanging sesay cath to a #24.
Will order urojet to help with any discomfort.
[2024-11-23] MEDS: NSS 1000 IV (04:32)
[2024-11-23 07:06] LABS: Hematocrit 25.2 % (39.0-52.0); Hemoglobin 8.2 g/dL (13.0-18.0); Mean Corp Hgb Conc. 32.5 g/dL (33.0-37.0); Mean Corpuscular Hgb 29.1 pg (27.0-31.0); Mean Corpuscular Volume 89.4 fL (80.0-94.0); Platelet Count 210 10^3/uL (130-400); Red Blood Cell Count 2.82 10^6/uL (4.70-6.10); Red Cell Dist. Width 13.5 % (11.5-14.5); White Blood Cell Count 12.4 10^3/uL (4.8-10.8)
[2024-11-23 07:31] LABS: Blood Urea Nitrogen 33 mg/dl (9-20); Calcium 8.4 mg/dl (8.4-10.2); Carbon Dioxide 24 mmol/L (22-30); Chloride 107 mmol/L (98-107); Estimated Creatinine Clearance 38 ml/min; Glucose 154 mg/dl (70-99); Potassium 3.9 mmol/L (3.5-5.1); Sodium 139 mmol/L (135-145); eGFR 49.56
[2024-11-23] MEDS: PROTONIX 40 MG PO (07:43)
[2024-11-23] MEDS: COREG 6.25 MG PO ×2 (07:43→20:51)
[2024-11-23] MEDS: NOVOLOG FLEXPEN-LOW RESISTANCE 1 UNITS SC ×2 (07:46→12:21)
[2024-11-23 07:54] LABS: Glucose - Point of Care 152 mg/dl (70-99)
[2024-11-23] MEDS: SPIRIVA RESPIMAT 2.5 MCG 2 PUFF INH (07:55)
[2024-11-23] MEDS: STRIVERDI RESPIMAT 2 PUFF INH (07:55)
--- NOTE | 2024-11-23 09:00 | W.PN.UPDATE ---
Update Note
Progress Note Update
Notified @2100 last night by RN re: no drainage from outflow port on 3-way in addition to increasing bladder pressure/discomfort.
Hand irrigation not feasible as no pullback noted on catheter by RN.
24Fr 3-way exchange advised - still no ability to irigate.
Urology came in for evaluation - I exchanged 24Fr 3-way and was able to advance catheter w/ clear pullback of irrigation fluid.
NO clots or hematuria noted.
Easy passage of catheter.
CBI low drip initiated - clear UOP noted after 10 min of observation.
Plan:
- wean CBI
- clamp CBI today
- possible voiding trial in AM 3/9
[2024-11-23 09:24] LABS: Urine Albumin 3+ (Neg - Trace); Urine Bilirubin Negative (Negative); Urine Character Clear (Clear); Urine Color Yellow; Urine Glucose Negative (Negative); Urine Ketone Negative (Negative); Urine Leukocyte 3+ (Negative); Urine Nitrite Negative (Negative); Urine Occult Blood 4+ (Negative); Urine Urobilinogen Negative (Neg - 1+)
[2024-11-23 09:52] LABS: Urine Squamous Cell 0-2 /LPF (Few); Urine White Cell 40-50 /HPF (0-5)
[2024-11-23 09:53] LABS: Urine Bacteria Few (Negative); Urine Red Blood Cell 60-70 /HPF (0-2)
--- NOTE | 2024-11-23 11:30 | W.PN.HOSP.TC ---
Today's Communication/Plan
-
as per urology - clamp CBI, TOV in AM and possible D/C if passing
Assessment / Plan
Assessment / Plan
84yo M with PMHx of COPD, HLD, HTN, DM, GERD, CHF, Hx of prostate CA admitted with hematuria, most likely 2/2 radiation cystitis
A/P:
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
History of prostate cancer status post brachytherapy seeding
Likely exacerbated by antiplatelet therapy - hold. Discussed [facility] urology - restart ASA 11/25/24 and Plavix 11/29/24 if hematuria not re-occuring
Continuous bladder irrigation in place
Urology following
Trend hemoglobin
Transfuse if hemoglobin less than 7
#Acute kidney injury on chronic kidney disease stage IIIb
resolved
#Hypotension likely hypovolemic
resolved, hold antihypertensives and diuretics watching BP trend
#DM type 2 with circulatory complications
Insulin basal/bolus, accuchecks, insulin SS, DM diet
#ASCVD
#COPD not in exacerbation
#CAD s/p CABG
#HLD
#Chronic HFmrEF
#Essential HTN
#GERD
cont home meds except of above
DVT ppx SCDs
Full code
I have spent at least 57min reviewing chart, test results, communication with consultants and direct patient care
Anticipated Discharge: Within 24 hours
Subjective/Interval History
-
Date of Service: November 23, 2024
Objective Data
-
Labs:
Laboratory Results
11/23/24
06:49
WBC 12.4 H
Hgb 8.2 L
Hct 25.2 L
Plt Count 210
Sodium 139
Potassium 3.9
Chloride 107
Carbon Dioxide 24
BUN 33 H
Creatinine 1.4 H
Glucose 154 H
Calcium 8.4
Vital Signs:
Vital Signs
Temp Pulse Resp BP Pulse Ox
97.6 F 83 16 125/50 98
11/23/24 07:00 11/23/24 07:58 11/23/24 07:58 11/23/24 07:43 11/23/24 07:58
I&O
11/22/24 11/23/24 11/24/24
06:59 06:59 07:59
Intake Total 720 / 720
Output Total 57294 / 19959 -1050 / -1050
Balance -74643 / -12647 1770 / 1770
Review of Systems
-
History Source: Patient
All other systems: Reviewed and negative
Physical Exam
-
General: No Apparent Distress
HEENT: Normocephalic
Respiratory: Clear to Auscultation
Cardiac: Regular Rhythm
Genito-urinary: Clear Urine and Continuous Bladder Irrigation
Musculoskeletal: No Clubbing, No Cyanosis and No Edema
Neuro: Awake, Alert, Oriented and AO x 3
Psych: Calm
--- NOTE | 2024-11-23 11:32 | W.PN.UPDATE ---
Update Note
Progress Note Update
repeated UA concerning for UTI - start Rocephin awaiting for Ucx
[2024-11-23 11:46] LABS: Glucose - Point of Care 184 mg/dl (70-99)
[2024-11-23] MEDS: STERILE WATER FOR INJECTION 10 ML IV (12:34)
[2024-11-23] MEDS: ROCEPHIN 1000 MG IV (12:35)
[2024-11-23] MEDS: NOVOLOG FLEXPEN-LOW RESISTANCE 3 UNITS SC (16:08)
[2024-11-23 16:09] LABS: Glucose - Point of Care 276 mg/dl (70-99)
[2024-11-23 16:36] LABS: Glucose - Point of Care 277 mg/dl (70-99)
[2024-11-23] MEDS: LIPITOR 20 MG PO (20:51)
[2024-11-23 22:07] LABS: Glucose - Point of Care 261 mg/dl (70-99)
[2024-11-24 06:58] LABS: % Basophils 0.2 % (0-2); % Eosinophils 2.6 % (0-6); % Immature Granulocytes 0.3 % (0-0.5); % Lymphocytes 8.1 % (20.5-51.1); % Monocytes 9.1 % (1.7-9.3); % Neutrophils 79.7 % (42.2-75.2); Absolute Eosinophils 0.3 10^3/uL (0-0.7); Absolute Monocytes 1.1 10^3/uL (0.1-0.6); Absolute Neutrophils 9.8 10^3/uL (1.4-6.5); Hematocrit 26.2 % (39.0-52.0); Hemoglobin 8.7 g/dL (13.0-18.0); Mean Corp Hgb Conc. 33.2 g/dL (33.0-37.0); Mean Corpuscular Hgb 29.9 pg (27.0-31.0); Mean Platelet Volume 9.9 fL (7.4-10.4); Nucleated Red Blood Cells % 0 % (-); Platelet Count 201 10^3/uL (130-400); Red Blood Cell Count 2.91 10^6/uL (4.70-6.10); Red Cell Dist. Width 13.6 % (11.5-14.5); White Blood Cell Count 12.2 10^3/uL (4.8-10.8)
[2024-11-24] MEDS: PROTONIX 40 MG PO (07:12)
[2024-11-24] MEDS: COREG 6.25 MG PO (07:12)
[2024-11-24] MEDS: NOVOLOG FLEXPEN-LOW RESISTANCE 1 UNITS SC (07:16)
[2024-11-24 07:18] LABS: Glucose - Point of Care 184 mg/dl (70-99)
[2024-11-24 07:22] LABS: ALT (SGPT) < 10 U/L (0-50); AST (SGOT) 15 U/L (17-59); Albumin 3.4 g/dl (3.5-5.0); Alkaline Phosphatase 98 U/L (38-126); Blood Urea Nitrogen 29 mg/dl (9-20); Calcium 8.8 mg/dl (8.4-10.2); Carbon Dioxide 20 mmol/L (22-30); Chloride 109 mmol/L (98-107); Estimated Creatinine Clearance 41 ml/min; Glucose 189 mg/dl (70-99); Potassium 4.1 mmol/L (3.5-5.1); Sodium 137 mmol/L (135-145); Total Bilirubin 0.6 mg/dl (0.2-1.3); Total Protein 5.9 g/dl (6.3-8.2); eGFR 54.17
[2024-11-24 07:49] VITALS: BP 133/66
[2024-11-24] MEDS: STRIVERDI RESPIMAT 2 PUFF INH (08:27)
[2024-11-24] MEDS: SPIRIVA RESPIMAT 2.5 MCG 2 PUFF INH (08:27)
[2024-11-24 11:21] LABS: Glucose - Point of Care 259 mg/dl (70-99)
[2024-11-24] MEDS: ROCEPHIN 1000 MG IV (11:44)
[2024-11-24] MEDS: STERILE WATER FOR INJECTION 10 ML IV (11:48)
[2024-11-24] MEDS: NOVOLOG FLEXPEN-LOW RESISTANCE 3 UNITS SC (11:48)
--- NOTE | 2024-11-24 12:09 | W.PN.HOSP.TC ---
Today's Communication/Plan
-
dc
Assessment / Plan
Assessment / Plan
84yo M with PMHx of COPD, HLD, HTN, DM, GERD, CHF, Hx of prostate CA admitted with hematuria, most likely 2/2 radiation cystitis. Ucx neg but with hematuria - reasonable to complete 6 days of Cefuroxime. Urine cleared on CBI, TOV passed but with
some bleeding. As per Urology recommendations - bleeding expected after sesay removal and patient reasonable for d/c home with recommendations to restart ASA on 11/26/24 and Plavix on 11/28/24 if urine will keep being non-bloody. Medically stable for
d/c home
A/P:
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
History of prostate cancer status post brachytherapy seeding
Likely exacerbated by antiplatelet therapy - hold. Discussed [facility] urology - restart ASA 11/25/24 and Plavix 11/29/24 if hematuria not re-occuring
Continuous bladder irrigation in place
Urology following
Trend hemoglobin
Transfuse if hemoglobin less than 7
#Acute kidney injury on chronic kidney disease stage IIIb
resolved
#Hypotension likely hypovolemic
resolved, hold antihypertensives and diuretics watching BP trend
#DM type 2 with circulatory complications
Insulin basal/bolus, accuchecks, insulin SS, DM diet
#ASCVD
#COPD not in exacerbation
#CAD s/p CABG
#HLD
#Chronic HFmrEF
#Essential HTN
#GERD
cont home meds except of above
DVT ppx SCDs
Full code
I have spent at least 37min reviewing chart, test results, communication with consultants and direct patient care
Anticipated Discharge: Today
Subjective/Interval History
-
Date of Service: November 24, 2024
Objective Data
-
Labs:
Laboratory Results
11/24/24
06:46
WBC 12.2 H
Hgb 8.7 L
Hct 26.2 L
Plt Count 201
Sodium 137
Potassium 4.1
Chloride 109 H
Carbon Dioxide 20 L
BUN 29 H
Creatinine 1.3
Glucose 189 H
Calcium 8.8
Total Bilirubin 0.6
AST 15 L
ALT < 10
Alkaline Phosphatase 98
Vital Signs:
Vital Signs
Temp Pulse Resp BP Pulse Ox
97.6 F 82 16 133/66 96
11/24/24 07:49 11/24/24 08:28 11/24/24 08:28 11/24/24 07:49 11/24/24 08:28
I&O
11/23/24 11/24/24 11/25/24
05:59 06:59 06:59
Intake Total 480 / 480
Output Total 1380 / 1380
Balance -900 / -900
Review of Systems
-
History Source: Patient
All other systems: Reviewed and negative
Physical Exam
-
General: No Apparent Distress
HEENT: Normocephalic
Respiratory: Clear to Auscultation
Cardiac: Regular Rhythm
GI: Soft, Nontender and Nondistended
Genito-urinary: Bloody Urine
Musculoskeletal: No Clubbing, No Cyanosis and No Edema
Neuro: Awake, Alert, Oriented and AO x 3
Psych: Calm
--- NOTE | 2024-11-24 12:18 | W.DCSUMMARY ---
Discharge Summary
Discharge Data
Date of Admission: 11/21/24
Date of Discharge: 11/24/24
-
Pending Results: No
Hospital Course
84yo M with PMHx of COPD, HLD, HTN, DM, GERD, CHF, Hx of prostate CA admitted with hematuria, most likely 2/2 radiation cystitis. Ucx neg but with hematuria - reasonable to complete 6 days of Cefuroxime. Urine cleared on CBI, TOV passed but with
some bleeding. As per Urology recommendations - bleeding expected after sesay removal and patient reasonable for d/c home with recommendations to restart ASA on 11/26/24 and Plavix on 11/28/24 if urine will keep being non-bloody. Medically stable for
d/c home
I have spent at least 37min reviewing chart, test results, communication with consultants and direct patient care
Patient was managed for:
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
#Acute kidney injury on chronic kidney disease stage IIIb
#Hypotension likely hypovolemic
#DM type 2 with circulatory complications
#ASCVD
#COPD not in exacerbation
#CAD s/p CABG
#HLD
#Chronic HFmrEF
#Essential HTN
#GERD
Discharge Plan
-
Patient Disposition: Home (Routine Discharge)
Discharge Diagnosis/Procedures: hematuria
Diet: Low Cholesterol
Activity: As tolerated
Driving Restrictions: As prior to admission
Activity Restrictions/Additional Instructions:
Wound Care Instructions Sacral Crease and open areas on buttocks- Clean per incontinence care and cover open areas with Calazime BID and PRN
Keep heels off-loaded with pillow or air cushion under calves when in bed
Referrals:
Benito Barrett MD [Active] - in less than 1 week
Marta Ling-MD Callie [Family Provider] -
Additional Discharge Medication Instructions: aspirin to start Mondaynd plavix Wednesday 11/29 if urine color lightening
Prescriptions:
New
cefuroxime axetil 500 mg tablet
500 mg PO Q12H Qty: 10 0RF
Continued
carvedilol 6.25 MG tablet
6.25 mg PO BID
pantoprazole 40 MG tablet,delayed release (DR/EC)
40 mg PO DAILY
furosemide 40 MG tablet
40 mg PO DAILY
ergocalciferol (vitamin D2) 1,250 mcg (50,000 unit) Capsule
1,250 mcg PO .3 TIMES A MONTH
Patient Comments:
11/21/2023, Pt. takes this med. 3 Saturdays of each month.
atorvastatin 20 mg Tablet
20 mg PO HS
betamethasone dipropionate 0.05 % Cream
1 applic TOPICAL BID PRN (Reason: Facial Rash, redness)
albuterol sulfate 90 mcg/actuation Hfa Aerosol Inhaler
2 puff INHALATION R Q6HPRN PRN (Reason: wheezing)
Repatha SureClick 140 mg/mL Pen Injector
140 mg SC Q2W
Bevespi Aerosphere 9-4.8 mcg Hfa Aerosol Inhaler
2 puff INHALATION R BIDPRN PRN (Reason: sob)
insulin aspart U-100 [Novolog FlexPen U-100 Insulin] 100 unit/mL (3 mL) insulin pen
10 - 18 sliding scale dose SC AC
insulin degludec [Tresiba FlexTouch U-100] 100 UNIT/ML insulin pen
20 - 40 unit SQ HS
ipratropium-albuterol 0.5 mg-3 mg(2.5 mg base)/3 mL Solution For Nebulization
3 ml inhalation R Q4HPRN PRN (Reason: shortness of breath/wheezing) Qty: 90 0RF
losartan 25 mg Tablet
25 mg PO DAILY
acetaminophen 325 mg tablet
650 mg PO Q6HPRN PRN (Reason: mild pain)
triamcinolone acetonide 0.1 % cream
1 applic TOPICAL BIDPRN PRN (Reason: bilateral leg rash)
Gemtesa 75 mg tablet
75 mg PO DAILY
Held
aspirin 81 mg Tablet,Delayed Release (Dr/Ec)
81 mg PO DAILY
Hold Instructions: Resume on 11/26/24. If urine color lightening
clopidogrel 75 mg tablet
75 mg PO DAILY
Hold Instructions: Resume on 11/29/24.
Discontinued
ibuprofen [Motrin IB] 200 mg Tablet
400 mg PO DAILYPRN PRN (Reason: back pain)
Discharge Orders:
Discharge Patient (As Directed); Ordered 11/24/24
Ordered By: Watson Gamez
Discharge Date and Time
Print Language: BRITISH
[2024-11-24] MEDS: Pyridium 200 MG PO (12:42)
--- NOTE | 2024-11-24 12:57 | CM ---
CM reviewed chart, patient for discharge today. Patient seen bedside, discussed plan for discharge. Patient reports he will call his for transport home. IMM reviewed, signed, placed in chart, patient provided with copy. CM will continue to
follow for all discharge planning needs.
Plan; home with [facility]
[2024-11-24 15:38] VITALS: BP 124/63
== END 2024-11-24 15:49 | disposition home health service (06) | DRG 699 ==
LOC: 4 WEST ACU 12:39
PROVIDERS: Nurse Practitioner Family; Registered Nurse; ADMITTING PHYSICIAN Hospitalist; ATTENDING PHYSICIAN Internal Medicine; CONSULT PHYSICIAN Specialist; EMERGENCY PHYSICIAN Student in an Organized Health Care Education/Training Program; FAMILY PHYSICIAN Internal Medicine
DX: N30.41 Irradiation cystitis with hematuria (principal); I13.0 Hypertensive heart and chronic kidney disease with heart failure and stage 1 through stage 4 chronic kidney disease, or unspecified chronic kidney disease; N17.9 Acute kidney failure, unspecified; I50.22 Chronic systolic (congestive) heart failure; N18.32 Chronic kidney disease, stage 3b; I25.10 Atherosclerotic heart disease of native coronary artery without angina pectoris; J44.9 Chronic obstructive pulmonary disease, unspecified; I95.1 Orthostatic hypotension; E11.22 Type 2 diabetes mellitus with diabetic chronic kidney disease; I95.9 Hypotension, unspecified; L89.322 Pressure ulcer of left buttock, stage 2; L89.152 Pressure ulcer of sacral region, stage 2; L89.312 Pressure ulcer of right buttock, stage 2; K21.9 Gastro-esophageal reflux disease without esophagitis; Z79.82 Long term (current) use of aspirin; Z95.1 Presence of aortocoronary bypass graft; Z86.73 Personal history of transient ischemic attack (TIA), and cerebral infarction without residual deficits; Z79.84 Long term (current) use of oral hypoglycemic drugs
CPT/HCPCS: 51702; 71045; 74176; 80048; 80053; 81003; 81015; 82962; 83036; 85014; 85018; 85025; 85027; 85610; 85730; 87086; 94640; 96374; 99285

== ENCOUNTER 2024-12-04 22:41 | Inpatient (IN) | payer OTHER, SELFPAY ==
[2024-12-04 19:08] VITALS: BP 119/53
[2024-12-04 19:30] LABS: % Basophils 0.6 % (0-2); % Eosinophils 4.8 % (0-6); % Immature Granulocytes 0.7 % (0-0.5); % Monocytes 5.7 % (1.7-9.3); % Neutrophils 76.2 % (42.2-75.2); Absolute Basophils 0.1 10^3/uL (0-0.2); Absolute Eosinophils 0.5 10^3/uL (0-0.7); Absolute Immature Granulocytes 0.1 10^3/uL (0-0.05); Absolute Lymphocytes 1.2 10^3/uL (1.2-3.4); Absolute Monocytes 0.6 10^3/uL (0.1-0.6); Absolute Neutrophils 7.3 10^3/uL (1.4-6.5); Hematocrit 27.4 % (39.0-52.0); Hemoglobin 8.8 g/dL (13.0-18.0); Mean Corp Hgb Conc. 32.1 g/dL (33.0-37.0); Mean Corpuscular Volume 90.4 fL (80.0-94.0); Mean Platelet Volume 9.4 fL (7.4-10.4); Nucleated Red Blood Cells % 0 % (-); Platelet Count 352 10^3/uL (130-400); Red Blood Cell Count 3.03 10^6/uL (4.70-6.10); Red Cell Dist. Width 13.6 % (11.5-14.5); White Blood Cell Count 9.6 10^3/uL (4.8-10.8)
[2024-12-04 19:47] LABS: ALT (SGPT) < 10 U/L (0-50); AST (SGOT) 13 U/L (17-59); Albumin 3.7 g/dl (3.5-5.0); Alkaline Phosphatase 106 U/L (38-126); Blood Urea Nitrogen 24 mg/dl (9-20); Calcium 8.8 mg/dl (8.4-10.2); Carbon Dioxide 27 mmol/L (22-30); Chloride 102 mmol/L (98-107); Glucose 222 mg/dl (70-99); Potassium 4.3 mmol/L (3.5-5.1); Sodium 138 mmol/L (135-145); Total Bilirubin 0.8 mg/dl (0.2-1.3); Total Protein 6.6 g/dl (6.3-8.2); eGFR 49.56
[2024-12-04 19:57] VITALS: BP 138/63
[2024-12-04 20:00] VITALS: BP 140/63
[2024-12-04 20:26] VITALS: BMI 30.3
--- NOTE | 2024-12-04 20:52 | ED.GENMED ---
History of Present Illness
General
Chief Complaint: Male Genito-Urinary Symptoms
Source: patient, records and family
Exam Limitations: none
Time Seen by Provider: 12/04/24 20:10
Nursing documentation reviewed up to this point in time: agreed with
History of Present Illness
History of Present Illness:
84-year-old male with past medical history as noted presents to the ER for evaluation of hematuria. 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
His urologist is Dr. Barrett. He was treated with a course of antibiotics after this episode. He had been on aspirin and Plavix; Plavix was initially discontinued with a plan to restart on 11/28 if hematuria resolved. Unfortunately patient reports
that since discharge he was having some spotting of blood in diaper. Blood has increased since then and over the past 24 hours has noted some clots in his diaper and has had difficulty emptying his bladder. Came to the ER for assessment. He has
not had any fever or chills. He denies any abdominal or flank pain. He denies any other complaints. While he has not been taking Plavix due to continued hematuria he says he had been on aspirin although urologist who spoke to today told him to
discontinue aspirin as well.
Past History
Past History
ED Past Medical History: CAD, Cancer (prostate age 50), CHF, COPD, GERD, Hypercholesterolemia, NIDDM, Renal failure, Other (neuropathy, hypotension, chronic back pain, mediatinal lymphadenopathy, psoriasis) and Other (ulcerative colitis)
ED Past Surgical History: Cardiac (CABG), Orthopedic (back surgery) and Urological (prostate with radiation therapy)
Social History
Tobacco: Former smoker
Alcohol: None
Drug: None
Personal:
Living: with family
Employment: Retired
Family History
Family History: Diabetes
Review of Systems
Review of Systems
All Other Systems: ROS reviewed and negative except as documented in HPI and ROS
Constitutional: Denies fever or chills
Respiratory: Denies trouble breathing
Cardiac: Denies chest pain
ABD/GI: Denies abdominal pain
: Reports difficulty voiding and bleeding; Denies flank pain
Phy Exam
Physical Exam
Physical Exam:
General: Awake, alert, no acute distress
Head: Normocephalic, atraumatic
Eyes: Conjunctiva normal
Throat: Airway intact, handling secretions
Neck: Trachea midline
Lungs: Breathing comfortably no distress
Heart: Regular rate
Abd: Soft, non distended, nontender, bladder is palpable in the lower abdomen
: No blood noted at the meatus, no external cuts or tears noted
Neuro: No gross deficits
Extremities: Warm and well-perfused
Scores
Heart Failure Risk
Heart Failure Risk Score: Not Applicable
Heart Score for Chest Pain Patients
STEMI patient?: Not applicable
Withdrawal Assessment of Alcohol
Withdrawal Assessment Completed?: Not applicable
Course
Orders/Labs/Results
Orders:
Orders
12/04/24 19:18
Complete Blood Count/With Diff Urgent
Comprehensive Metabolic Panel Urgent
12/04/24 20:51
Bladder Scan- Treatment ONCE
12/04/24 21:01
Lopez Placement- Treatment ONCE
Reason for insertion: Acute Retention
12/04/24 21:27
Lidocaine 2% [Lidocaine Uro-Jet 2%] 1 syringe .ROUTE .STK-MED ONE
12/04/24 21:40
Sterile Water [Sterile Water For Injection] 20 ml .ROUTE .STK-MED
12/04/24 21:45
CBI- Treatment PRN
Solution: NS
Irrigate to Clear?: Yes
12/04/24 21:55
UROLOGY CONSULT Urgent
Consulting Provider: Oral Castaneda
Was physician already notified: Yes
12/04/24 22:07
Urinalysis Reflex To Culture Urgent
Date Specimen was Collected: 12/04/24
Time Specimen was Collected: 22:06
Urine Microscopic Reflex Cult Urgent
Urine Culture Urgent
ROSELINE Source: U
Specimen Description:
Date Specimen was Collected: 12/04/24
Time Specimen was Collected: 22:06
12/04/24 22:18
Admit/Transfer Patient As Directed
Co-Sign Provider:
Level of Care: Inpatient admission
Assign to:: Medical/Surgical
Physician / Group: [email or web address]
Diagnosis: hematuria
Reason for Hospitalization: hematuria
Expected length of stay greater than two midnights?: Yes
ELOS- Estimated Length of Stay in days: 3
I certify the patient meets the requirements for IP care: Yes
Code Status As Directed
Resuscitation Status: Full Code
PRN Pain Medication Management As Directed
May give lesser potent ordered pain med per pt: Yes
preference::
Protocol:: Medication orders for pain may be administered in a
manner that supports deferring to patient preference
when the pt is:
- Requesting an ordered lesser potent pain medication.
Least to most potent pain medications are defined
as: acetaminophen < NSAID < tramadol < opioids
(morphine, oxycodone, hydromorphone).
- Requesting a lesser dose of the same medication IF
ORDERED.
- Requesting a less intrusive route of administration
if both routes are prescribed by the provider (PO <
IV).
12/05/24 01:54
Acetaminophen [Tylenol] 650 mg PO Q4HPRN PRN
Bisacodyl [Dulcolax] 10 mg RECTAL [id number] PRN
Dextrose 50%-Water [Dextrose 50% Syringe] 12.5 grams IV [id number] PRN
Docusate W/Senna [Senokot-S] 1 tablet PO BIDPRN PRN
Glucagon [GlucaGen] 1 mg IM PRN PRN
Polyethylene Glycol Powder [Miralax] 17 grams PO DAILYPRN PRN
12/05/24 01:54
Activity As Directed
Activity Level: As Tolerated
Bedside Glucose Monitoring As Directed
Frequency: AC&HS
Additional Instructions:: Change to q6h if pt on TPN, tube feeding or not eating
Intake/ Output As Directed
Frequency: Per unit guidelines
Pneumatic Compression Sleeves As Directed
Type: Knee high
Vital Signs As Directed
Frequency: Per unit guidelines
Weight As Directed
Frequency: Daily
DX Deep Vein Thrombosis Video Routine
12/05/24 Breakfast
1800 calorie (15 carb) Diabetic
Basic Metabolic Panel IN AM
Complete Blood Count/No Diff IN AM
12/05/24 07:30
Insulin Aspart Corrective Low [Novolog Flexpen-Low Resistance] See Protocol SC AC
12/06/24 06:00
Basic Metabolic Panel IN AM
Complete Blood Count/No Diff IN AM
12/07/24 06:00
Basic Metabolic Panel IN AM
Complete Blood Count/No Diff IN AM
Abnormal Lab Results
12/04/24 12/04/24
19:18 22:07
RBC 3.03 L 10^6/uL
(4.70-6.10)
Hgb 8.8 L g/dL
(13.0-18.0)
Hct 27.4 L %
(39.0-52.0)
MCHC 32.1 L g/dL
(33.0-37.0)
Abs Immat Gran (auto) 0.1 H 10^3/uL
(0-0.05)
Absolute Neuts (auto) 7.3 H 10^3/uL
(1.4-6.5)
Immature Gran % 0.7 H %
(0-0.5)
Neutrophils % 76.2 H %
(42.2-75.2)
Lymphocytes % 12.0 L %
(20.5-51.1)
BUN 24 H mg/dl
(9-20)
Creatinine 1.4 H mg/dL
(0.7-1.3)
Glucose 222 H mg/dl
(70-99)
AST 13 L U/L
(17-59)
Ur Occult Blood Reflex 4+ A
(Negative)
Urine Nitrite (Reflex) Positive A
(Negative)
Leukocyte Esterase Rfl 2+ A
(Negative)
Urine RBC >100 A /HPF
(0-2)
Urine WBC (Reflex) 30-40 A /HPF
(0-5)
Urine Bacteria (Reflex) Moderate A
(Negative)
Urine Glucose 2+ A
(Negative)
Urine Albumin (Reflex) 3+ A
(Neg - Trace)
12/04/24 19:18
12/04/24 19:18
Vital Signs
Initial and Last Documented VS:
Initial Vital Signs
Temp Pulse Resp BP Pulse Ox
36.4 C 73 20 119/53 96
12/04/24 19:08 12/04/24 19:08 12/04/24 19:08 12/04/24 19:08 12/04/24 19:08
Last Documented Vital Signs
Temp Pulse Resp BP Pulse Ox
36.4 C 92 20 154/74 95
12/05/24 01:50 12/05/24 01:50 12/05/24 01:50 12/05/24 01:50 12/05/24 01:50
Procedures
Urinary Catheter
Procedure completed by: Richard Ruiz MD
Type of urinary catheter: three way (CBI)
Catheter size (afghan): 24
Urine description: nawaf and blood w/ clots
Urine output (ml): 400
MDM/Problems Addressed
Differential Diagnosis Includes:
Hematuria
MDM/Problems Addressed:
84-year-old male presents with recurrent hematuria and difficulty emptying his bladder; recent admission for similar requiring CBI suspected secondary to radiation cystitis. Sees Dr. Barrett for urology. Vitals and exam as above. Labs sent in
triage reviewed: Hemoglobin stable at 8.8 today. Creatinine stable at 1.4.
Patient had postvoid residual on bladder scan, urinary catheter placed by sc 24 Faroese three-way with good output, nawaf-colored with blood clots mixed. Will irrigate and initiate CBI to clear.
*Critical Care Note
Total Time (30-74mins, 75-104mins- exclusive of procedures): Not Applicable
Patient Management
Discussion with other providers: Underwear Hemmer (Discussed with urology)
ED Attending Note
-
Portions of this chart may have been created with voice recognition software.� Occasional wrong word or��sound alike� substitutions may have occurred due to the inherent limitations of voice recognition software.
Discharge Plan
Departure
Patient Disposition: Admit
Date of Disposition: 12/04/24
Time of Disposition: 21:57
Admit to doctor: Yulia
Presentation/result/management discussed w/ accepting MD/DO: Hospitalist
Discharge Problem:
Hematuria, Urinary retention
Interventions
Interventions:
*Risk Screen - Suicide Last Done: 12/05/24 01:57
*General Assessment Last Done: 12/04/24 19:08
*Neglect/Abuse Screening Last Done: 12/04/24 19:08
*ED- Fall Risk Assessment Last Done: 12/04/24 20:26
*ED COVID-19 Vaccine History Last Done: 12/05/24 01:57
*Nursing Disposition Last Done: 12/05/24 01:41
ED-Male Genitourinary Assessment Last Done: 12/04/24 20:26
Discharge Date and Time
Discharge Date/Time: 12/05/24 01:44
[2024-12-04 21:00] VITALS: BP 151/70
--- NOTE | 2024-12-04 21:58 | HPS.HSE ---
Family Physician
-
Family Physician: Roni HAGER
Chief Complaint
-
hematuria.
History of Present Illness
84-year-old male with past medical history for hyperlipidemia, coronary artery disease, overactive bladder, CVA, CHF, peripheral artery disease status post stent presented to us with hematuria since yesterday. Of note patient was admitted to this
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 His urologist is Dr. Barrett. since yesterday he was having some spotting of blood in diaper. Blood has increased since then and over
the past 24 hours has noted some clots in his diaper and has had difficulty emptying his bladder. He has not had any fever or chills. He denies any abdominal or flank pain. denied chest pain, sob. he has not been taking Plavix since the discharge.
today his urologist asked him to stop aspirin as well.
CBI initiated in ER. admitting for further management.
Medical History
Past Medical History
Past Medical History: Reports Other
Additional Past Medical History:
Hyperlipidemia
Ms. mild mitral regurgitation
Coronary artery disease
Overactive bladder
Chronic bronchitis
CVA
CHF
Prostate cancer
Type 2 diabetes
CVA
Past Surgical History: Reports Other
Additional Past Surgical History:
Coronary artery bypass graft
Nasal polyps removed
Hip surgery
Stent
Social History
Tobacco: Former Smoker
Alcohol: None
Drug: None
Personal:
Living: With Family
Family History
Family History: Not pertinent
Allergies / Home Medications
Allergies reflects when Allergies were last updated in [facility].
Home Medications with original date entered in [facility]
Allergy/Medication List:
Allergies
Allergy/AdvReac Type Severity Reaction Status Date / Time
spironolactone Allergy hyperkalemi Verified 12/04/24 19:11
a
Home Medications
carvedilol 6.25 mg tablet 6.25 mg PO BID Blood pressure 08/10/19
furosemide 40 mg tablet 40 mg PO DAILY Fluid retention/Swelling 05/16/21
pantoprazole 40 mg tablet,delayed release 40 mg PO DAILY Gastrointestinal issue 05/16/21
ergocalciferol (vitamin D2) 1,250 mcg (50,000 unit) capsule 1,250 mcg PO .3 TIMES A MONTH Supplement 09/03/22
albuterol sulfate 90 mcg/actuation aerosol inhaler 2 puff inhalation R Q6HPRN PRN wheezing 11/21/23
atorvastatin 20 mg tablet 20 mg PO HS High Cholesterol 11/21/23
betamethasone dipropionate 0.05 % topical cream 1 applic topical BID PRN Facial Rash, redness 11/21/23
evolocumab 140 mg/mL subcutaneous pen injector (Repatha BeCouplyick) 140 mg SC Q2W High Cholesterol 11/21/23
glycopyrrolate 9 mcg-formoterol 4.8 mcg HFA aerosol inhaler (Bevespi Aerosphere) 2 puff inhalation R BIDPRN PRN sob 11/21/23
insulin aspart U-100 100 unit/mL (3 mL) subcutaneous pen (Novolog FlexPen U-100 Insulin aspart) 10 - 18 sliding scale dose SC AC Diabetes 11/21/23
insulin degludec 100 unit/mL (3 mL) subcutaneous pen (Tresiba FlexTouch U-100 insulin) 20 - 40 unit SQ HS Diabetes 11/21/23
ipratropium 0.5 mg-albuterol 3 mg (2.5 mg base)/3 mL nebulization soln 3 ml inhalation R Q4HPRN PRN shortness of breath/wheezing #90 mL 11/23/23
acetaminophen 325 mg tablet 650 mg PO Q6HPRN PRN mild pain 03/27/24
aspirin 81 mg tablet,delayed release 81 mg PO DAILY Blood Clot Prevention/Tx 03/27/24
losartan 25 mg tablet 25 mg PO DAILY Blood Pressure 03/27/24
clopidogrel 75 mg tablet 75 mg PO DAILY Blood Clot Prevention/Tx 11/21/24
triamcinolone acetonide 0.1 % topical cream 1 applic topical BIDPRN PRN bilateral leg rash 11/21/24
vibegron 75 mg tablet (Gemtesa) 75 mg PO DAILY Urinary Issue 11/21/24
cefuroxime axetil 500 mg tablet 500 mg PO Q12H #10 tabs 11/24/24
Review of Systems
-
Constitutional: Reports No Symptoms
EENT: Reports No Symptoms
Respiratory: Reports No Symptoms
Cardiac: Reports No Symptoms
Abdomen/GI: Reports No Symptoms
: Reports Bleeding
Musculoskeletal: Reports No Symptoms
Skin: Reports No Symptoms
Neurological: Reports No Symptoms
Endocrine: Reports No Symptoms
Hematologic/Lymphatic: Reports No Symptoms
Psych: Reports No Symptoms
Physical Exam
Vital Signs
Vital Signs
Temp Pulse Resp BP Pulse Ox
97.6 F 82 21 140/63 96
12/04/24 19:08 12/04/24 20:30 12/04/24 20:30 12/04/24 20:00 12/04/24 20:43
Physical Exam
General: Well Developed, Well Nourished and No Apparent Distress
HEENT: NormoCephalic, Moist mucous membranes and Atraumatic
Respiratory: Clear
Cardiac: S1/S2 and Regular Rhythm; No Murmur or Rub
GI: Soft, Non Tender, Non Distended and Normal Bowel Sounds; No Organomegaly
Rectal: Deferred by Provider
Genito-urinary: Continuous Bladder Irrigation
Musculoskeletal: No Clubbing, No Cyanosis and No Edema
Skin: No Rash
Neuro: AO x 3 and Nonfocal/grossly intact
Psych: Calm
Laboratory Results
-
12/04/24 19:18
12/04/24 19:18
Laboratory Results
Total Bilirubin 0.8 mg/dl (0.2-1.3) 12/04/24 19:18
AST 13 U/L (17-59) L 12/04/24 19:18
ALT < 10 U/L (0-50) 12/04/24 19:18
Alkaline Phosphatase 106 U/L (38-126) 12/04/24 19:18
Data Reviewed
-
Lab Data: Labs Reviewed by me
Impression/Plan
-
# Hematuria/urinary retention
# History of prostate cancer status post bronchitic therapy sitting
-Continuous bladder irrigation in place
-Urology consulted
-Monitor hemoglobin
-Hemoglobin stable at 8.8
# CKD stage IIIb
-Creatinine 1.4
-Continue to monitor
# Type 2 diabetes
-Accu-Cheks, sliding scale, diabetes diet
-Tresiba 20 units at bedtime
#COPD not in exacerbation
-Nebs from home continued
#CAD s/p CABG
#HLD
-Statin continued
#Chronic HFmrEF
-Lasix continue with hold parameters
-Strict TARSHA
-Daily weight
#Essential HTN
-Coreg, losartan continued with hold parameters
#GERD
-Protonix continued
DVT ppx SCDs
Full code
[2024-12-04 22:00] VITALS: BP 154/72
[2024-12-04 22:21] LABS: Urine Albumin 3+ (Neg - Trace); Urine Bilirubin Negative (Negative); Urine Character Slightly Cloudy (Clear); Urine Color Red; Urine Glucose 2+ (Negative); Urine Ketone Negative (Negative); Urine Leukocyte 2+ (Negative); Urine Nitrite Positive (Negative); Urine Occult Blood 4+ (Negative); Urine Urobilinogen Negative (Neg - 1+)
[2024-12-04 22:47] LABS: Urine Bacteria Moderate (Negative); Urine Red Blood Cell >100 /HPF (0-2); Urine Squamous Cell 0-2 /LPF (Few); Urine White Cell 30-40 /HPF (0-5)
[2024-12-04 23:00] VITALS: BP 162/77
--- NOTE | 2024-12-04 23:15 | W.PN.UPDATE ---
Update Note
Progress Note Update
This note serves as an addendum to the H&P by actuarial science professor ALEJANDRA
Ana SAVANAH
HPI
84F HX CAD, Chr DAPL , HLD overactive bladder, CVA, CHF, PAD s/p stent pw acute recurrent hematuria since yesterday.
Recent admission for hematuria suspected due to XRT cystitis required CBI.
- stopped Plavix since DC
- since yesterday some spotting of blood in diaper.
- Blood has increased since then and over the past 24 hours has noted some clots in his diaper
- had difficulty emptying his bladder.
ROS
No fever or chills.
- denies any abdominal or flank pain. denied chest pain, sob. today his urologist asked him to stop aspirin as well.
Primary urologist is Dr. Barrett.
Vital Signs
Temp Pulse Resp BP Pulse Ox
97.6 F 88 25 154/72 95
12/04/24 19:08 12/04/24 22:45 12/04/24 22:45 12/04/24 22:00 12/04/24 22:45
PE
Gen: Not toxic
HEENT: anicteric
Neck: supple
Lungs: CTA
Cor: RRR S1 S2
Abdomen: soft and benign
; CBI with clearing gross hematuria
AVIONICS SYSTEMS REPAIRER: AAO3
MS: no edema
Psych: approbate
Abnormal Lab
12/04/24 12/04/24
19:18 22:07
RBC 3.03 L
Hgb 8.8 L
Hct 27.4 L
MCHC 32.1 L
Abs Immat Gran (auto) 0.1 H
Absolute Neuts (auto) 7.3 H
Immature Gran % 0.7 H
Neutrophils % 76.2 H
Lymphocytes % 12.0 L
BUN 24 H
Creatinine 1.4 H
Glucose 222 H
AST 13 L
Ur Occult Blood Reflex 4+ A
Urine Nitrite (Reflex) Positive A
Leukocyte Esterase Rfl 2+ A
Urine RBC >100 A
Urine WBC (Reflex) 30-40 A
Urine Bacteria (Reflex) Moderate A
Urine Glucose 2+ A
Urine Albumin (Reflex) 3+ A
ASSESSMENT & PLAN
Recurrent Hematuria with clot urinary retention
Hgb stable at 8.8
HX prostate cancer status post bronchitic therapy sitting
- Trend Hgb
- CBI
- Uro consulted
HX CKD 3b : Cr 1.4 - 1.5 at baseline
- trend Cr
T2DM
on Tresiba HS
COPD
- not in exacerbation
- Home Nebs
CAD s/p CABG
HLD
- Hold ASA
- Stop Plavix since DC from last admission
Chronic HFmrEF
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
- Daily Wt
Essential HTN
- Coreg, losartan continued with hold parameters
DVT ppx SCDs
Full code
IP MS
[2024-12-05] VITALS: BP 156/74
[2024-12-05 01:00] VITALS: BP 149/68
[2024-12-05 01:50] VITALS: BP 154/74; BMI 34.6
[2024-12-05 06:00] VITALS: BMI 27.6
[2024-12-05 07:00] VITALS: BP 147/80
[2024-12-05 07:16] LABS: Glucose - Point of Care 125 mg/dl (70-99)
[2024-12-05] MEDS: STRIVERDI RESPIMAT 2 PUFF INH (07:37)
[2024-12-05] MEDS: SPIRIVA RESPIMAT 2.5 MCG 2 PUFF INH (07:37)
[2024-12-05 07:42] LABS: Hematocrit 27.4 % (39.0-52.0); Hemoglobin 8.7 g/dL (13.0-18.0); Mean Corp Hgb Conc. 31.8 g/dL (33.0-37.0); Mean Corpuscular Volume 91.3 fL (80.0-94.0); Mean Platelet Volume 9.5 fL (7.4-10.4); Platelet Count 354 10^3/uL (130-400); Red Cell Dist. Width 13.6 % (11.5-14.5); White Blood Cell Count 12.6 10^3/uL (4.8-10.8)
[2024-12-05 08:17] LABS: Blood Urea Nitrogen 23 mg/dl (9-20); Calcium 8.8 mg/dl (8.4-10.2); Carbon Dioxide 28 mmol/L (22-30); Chloride 106 mmol/L (98-107); Estimated Creatinine Clearance 44 ml/min; Glucose 129 mg/dl (70-99); Potassium 4.4 mmol/L (3.5-5.1); Sodium 143 mmol/L (135-145); eGFR 49.56
--- NOTE | 2024-12-05 09:15 | VNURNOTE ---
Chart reviewed. Patient is current with [facility] nursing, PT. OT. Will continue to follow hospital course and DC plans.
[2024-12-05] MEDS: NOVOLOG FLEXPEN-LOW RESISTANCE SC (10:09)
[2024-12-05] MEDS: TRIAMCINOLONE ACETONIDE 0.1% CREAM 1 APPLIC TOPICAL ×2 (10:10→20:25)
[2024-12-05] MEDS: COZAAR 25 MG PO (10:13)
[2024-12-05] MEDS: COREG 6.25 MG PO ×2 (10:13→20:25)
--- NOTE | 2024-12-05 10:46 | CONS.URO ---
Consultation
-
Reason for Consultation: Hematuria
Medical History
History of Present Illness
84M with hx of prostate cancer and remote tx with radiation brachytherapy
On Plavix for hx of stroke
Admitted earlier this month for gross hematuria likely due to radiation cystitis
Discharged and had not resumed his Plavix since
Over the past few days he developed blood spotting in underwear which progressed to voiding difficulty and clot retention
Catheter placed in the ER and clots irrigated
CBI was started and urine remained clear overnight
Past Medical History
Past Medical History: Other (Hyperlipidemia Ms. mild mitral regurgitation Coronary artery disease Overactive bladder Chronic bronchitis CVA CHF Prostate cancer Type 2 diabetes CVA)
Past Surgical History: Other (Coronary artery bypass graft Nasal polyps removed Hip surgery Stent)
Social History
Tobacco: Former Smoker
Alcohol: None
Drug: None
Family History
Family History: Reviewed & Not Pertinent
Allergies/Home Medications
Allergies
Allergy/AdvReac Type Severity Reaction Status Date / Time
spironolactone Allergy hyperkalemi Verified 12/04/24 19:11
a
Home Medications
�Medication �Instructions �Recorded �Confirmed �Type
carvedilol 6.25 mg tablet 6.25 mg PO BID Blood pressure 08/10/19 12/04/24 History
pantoprazole 40 mg tablet,delayed 40 mg PO HS Gastrointestinal issue 05/16/21 12/04/24 History
release
albuterol sulfate 90 mcg/actuation 1 puff inhalation R Q6HPRN PRN 11/21/23 12/04/24 History
aerosol inhaler wheezing
atorvastatin 20 mg tablet 20 mg PO HS High Cholesterol 11/21/23 12/04/24 History
betamethasone dipropionate 0.05 % 1 applic topical BID Facial Rash, 11/21/23 12/04/24 History
topical cream redness
evolocumab 140 mg/mL subcutaneous 140 mg SC Q2W High Cholesterol 11/21/23 12/04/24 History
pen injector (Repatha SureClick)
glycopyrrolate 9 mcg-formoterol 2 puff inhalation R BID 11/21/23 12/04/24 History
4.8 mcg HFA aerosol inhaler Lung/Breathing Issues
(Bevespi Aerosphere)
insulin aspart U-100 100 unit/mL 10 - 20 sliding scale dose SC AC 11/21/23 12/04/24 History
(3 mL) subcutaneous pen (Novolog Diabetes
FlexPen U-100 Insulin aspart)
insulin degludec 100 unit/mL (3 42 unit SQ HS Diabetes 11/21/23 12/04/24 History
mL) subcutaneous pen (Tresiba
FlexTouch U-100 insulin)
acetaminophen 325 mg tablet 650 mg PO Q6HPRN PRN mild pain 03/27/24 12/04/24 History
losartan 25 mg tablet 25 mg PO DAILY Blood Pressure 03/27/24 12/04/24 History
triamcinolone acetonide 0.1 % 1 applic topical BID 11/21/24 12/04/24 History
topical cream
aspirin 81 mg tablet,delayed 81 mg PO DAILY Blood Clot 12/04/24 12/04/24 History
release Prevention/Tx
cefuroxime axetil 500 mg tablet 500 mg PO DAILY Infection 12/04/24 12/04/24 History
mirabegron 50 mg tablet,extended 50 mg PO DAILY Urinary Issue 12/04/24 12/04/24 History
release 24 hr (Myrbetriq)
Physical Exam
Vital Signs
Vital Signs
Temp Pulse Resp BP Pulse Ox
98.4 F 84 16 147/80 96
12/05/24 07:00 12/05/24 07:43 12/05/24 07:43 12/05/24 07:00 12/05/24 07:43
Lab / Testing Results
Laboratory Results
12/05/24 06:20
12/05/24 06:20
Physical Exam
General: Well Developed, Well Nourished and No Apparent Distress
GI: Soft and Non Tender
Genito-urinary: No Costovertebral Tend, Clear Urine and Lopez Catheter
Neuro: AO x 3
Psych: Calm and Intact Judgement
Assessment / Plan
-
84M with recurrent gross hematuria and clot retention
Likely related to past radiation treatment for prostate cancer
- Hematuria resolved shortly after admission
- CBI clamped this AM
- NPO and trend hematuria today
- If bleeding recurs will plan for cystoscopy and fulguration, though this is often not a durable solution for radiation related bleeding
- If bleeding resolved, follow up outpatient for office cystoscopy and likely hyperbaric oxygen therapy
--- NOTE | 2024-12-05 11:47 | W.PN.HOSP.TC ---
Today's Communication/Plan
-
see plan
Assessment / Plan
Assessment / Plan
Mr. Arash Fish is a 84 yo man with hx CAD, CVA, PAD on asa/plavix, CHF, HLD, recent admission 11/21-11/24/24 for hematuria most likely 2/2 radiation cystitis presents to the ER with recurrent hematuria.
Recurrent Hematuria with clot urinary retention
Radiation-Induced Hemorrhagic Cystitis
Hx Prostate CA s/p brachytherapy seeding
-s/p CBI with resolution this morning, CBI clamped this AM
-appreciate Urology
-patient is NPO, per Urology: if bleeding recurs will plan for cystoscopy and fulguration, if resolved follow up outpatient for office cystoscopy and likely hyperbaric oxygen therapy
HX CKD 3b : Cr 1.4 - 1.5 at baseline
- trend Cr
T2DM
on Tresiba HS
COPD
- not in exacerbation
- Home Nebs
CAD s/p CABG
HLD
- Hold aspirin for today
- Stop Plavix since DC from last admission
Chronic HFmrEF
- JIRA DEVELOPER PO Lasix
- Daily Wt
Essential HTN
- Coreg, losartan continued with hold parameters
DVT ppx SCDs
Full code
IP MS
Anticipated Discharge: 24 - 48 hours
Subjective/Interval History
-
Date of Service: December 05, 2024
urine now clear
denies chest pain or shortness of breath
Objective Data
-
Labs:
Laboratory Results
12/05/24
06:20
WBC 12.6 H
Hgb 8.7 L
Hct 27.4 L
Plt Count 354
Sodium 143
Potassium 4.4
Chloride 106
Carbon Dioxide 28
BUN 23 H
Creatinine 1.4 H
Glucose 129 H
Calcium 8.8
Vital Signs:
Vital Signs
Temp Pulse Resp BP Pulse Ox
98.4 F 84 16 147/80 96
12/05/24 07:00 12/05/24 07:43 12/05/24 07:43 12/05/24 07:00 12/05/24 07:43
I&O
12/04/24 12/05/24 12/06/24
06:59 06:59 06:59
Intake Total 480 / 480
Output Total 3900 / 3900
Balance -3420 / -3420
Review of Systems
-
History Source: Patient
All other systems: Reviewed and negative
Physical Exam
-
General: No Apparent Distress
HEENT: Normocephalic
Respiratory: Clear to Auscultation
Cardiac: Regular Rhythm
GI: Soft, Nontender and Nondistended
Genito-urinary: Other (urine clear )
Musculoskeletal: No Clubbing, No Cyanosis and No Edema
Neuro: Awake, Alert, Oriented and AO x 3
Psych: Calm
Data Reviewed
-
Diagnostic Radiology: Report Reviewed by me
Labs: Labs Reviewed by me
[2024-12-05 12:07] LABS: Glucose - Point of Care 175 mg/dl (70-99)
--- NOTE | 2024-12-05 12:37 | W.PN.UPDATE ---
Update Note
Progress Note Update
Hematuria completely resolved all morning off CBI
Urine clear yellow
Cancel OR for today - diet given
Plan for OR tomorrow for cysto/fulguration if significant hematuria recurs
[2024-12-05] MEDS: NSS 1000 IV (13:12)
[2024-12-05] MEDS: FLUSH (NSS) 1 FLUSH IV (13:12)
[2024-12-05] MEDS: NOVOLOG FLEXPEN-LOW RESISTANCE 1 UNITS SC (13:25)
--- NOTE | 2024-12-05 13:40 | W.PN.UPDATE ---
Update Note
Progress Note Update
Discussed plan with Dr. Castaneda. Ok to resume aspirin today so we can montior patient on aspirin. Patient updated on plan.
[2024-12-05 15:05] VITALS: BP 121/54
--- NOTE | 2024-12-05 15:46 | CM ---
Initial assessment completed. Patient is a 84-year-old male with past medical history for hyperlipidemia, coronary artery disease, overactive bladder, CVA, CHF, peripheral artery disease status post stent presented with hematuria. Recent admission
11/21-11/24/24 for hematuria.
Patient resides w/ spouse in single story home w/ ramp access. Patient is independent w/ the use of a RW. According to spouse, she supervises patient while bathing to ensure he does not fall. Patient has grab bars, shower chair and a nebulizer at
home. Alexander is used when needed. No SNF hx, currently engaged in OP therapy and current w/ [facility].
Address, points of contact and insurance verified
PCP: Marta Ling
Pharmacy: [facility]
Plan: Anticipate home; [facility]EVIN w/ [facility]
[2024-12-05] MEDS: LOW STRENGTH ASPIRIN 81 MG PO (17:01)
[2024-12-05 17:20] LABS: Glucose - Point of Care 254 mg/dl (70-99)
[2024-12-05] MEDS: NOVOLOG FLEXPEN-LOW RESISTANCE 3 UNITS SC (18:41)
[2024-12-05] MEDS: LIPITOR 20 MG PO (21:20)
[2024-12-05] MEDS: PROTONIX 40 MG PO (21:21)
[2024-12-05] MEDS: LANTUS 0.2 UNITS SC (21:21)
[2024-12-05 21:35] LABS: Glucose - Point of Care 308 mg/dl (70-99)
[2024-12-05 23:37] VITALS: BP 149/79
[2024-12-06] MEDS: NSS 1000 IV (05:40)
[2024-12-06 06:00] VITALS: BMI 23.4
[2024-12-06 07:00] VITALS: BP 132/61
[2024-12-06 07:38] LABS: Hematocrit 25.4 % (39.0-52.0); Hemoglobin 8.2 g/dL (13.0-18.0); Mean Corp Hgb Conc. 32.3 g/dL (33.0-37.0); Mean Corpuscular Hgb 29.3 pg (27.0-31.0); Mean Corpuscular Volume 90.7 fL (80.0-94.0); Mean Platelet Volume 9.3 fL (7.4-10.4); Platelet Count 303 10^3/uL (130-400); Red Cell Dist. Width 13.6 % (11.5-14.5); White Blood Cell Count 10.8 10^3/uL (4.8-10.8)
[2024-12-06] MEDS: STRIVERDI RESPIMAT 2 PUFF INH (07:45)
[2024-12-06] MEDS: SPIRIVA RESPIMAT 2.5 MCG 2 PUFF INH (07:46)
[2024-12-06 08:20] LABS: Glucose - Point of Care 131 mg/dl (70-99)
[2024-12-06] MEDS: NOVOLOG FLEXPEN-LOW RESISTANCE SC ×2 (08:27→16:38)
[2024-12-06] MEDS: TRIAMCINOLONE ACETONIDE 0.1% CREAM TOPICAL ×4 (08:29→19:39)
[2024-12-06] MEDS: LOW STRENGTH ASPIRIN 81 MG PO (08:29)
[2024-12-06] MEDS: COZAAR 25 MG PO (08:29)
[2024-12-06] MEDS: COREG 6.25 MG PO ×2 (08:29→19:34)
[2024-12-06 08:41] LABS: Blood Urea Nitrogen 20 mg/dl (9-20); Calcium 8.5 mg/dl (8.4-10.2); Carbon Dioxide 25 mmol/L (22-30); Chloride 108 mmol/L (98-107); Estimated Creatinine Clearance 55 ml/min; Glucose 138 mg/dl (70-99); Potassium 4.1 mmol/L (3.5-5.1); Sodium 141 mmol/L (135-145); eGFR 59.63
--- NOTE | 2024-12-06 11:19 | W.PN.HOSP.TC ---
Today's Communication/Plan
-
follow up further Urology recs
hold Plavix
Assessment / Plan
Assessment / Plan
Mr. Arash Fish is a 84 yo man with hx CAD, CVA, PAD on asa/plavix, CHF, HLD, recent admission 11/21-11/24/24 for hematuria most likely 2/2 radiation cystitis presents to the ER with recurrent hematuria.
Recurrent Hematuria with clot urinary retention
Radiation-Induced Hemorrhagic Cystitis
Hx Prostate CA s/p brachytherapy seeding
-s/p CBI with resolution; CBI clamped 12/05
-appreciate Urology
-aspirin resumed
-F/U further Urology recs
-per Urology, follow up outpatient for office cystoscopy and likely hyperbaric oxygen therapy
HX CKD 3b : Cr 1.4 - 1.5 at baseline
- trend Cr
T2DM
on Tresiba HS
COPD
- not in exacerbation
- Home Nebs
CAD s/p CABG
HLD
-aspirin resumed
- Stop Plavix since DC from last admission
Chronic HFmrEF
- TUBE REBUILDER PO Lasix
- Daily Wt
Essential HTN
- Coreg, losartan continued with hold parameters
DVT ppx SCDs
Full code
IP MS
Anticipated Discharge: Within 24 hours
Subjective/Interval History
-
Date of Service: December 06, 2024
feeling well
awoken from sleep
Objective Data
-
Labs:
Laboratory Results
12/06/24
06:49
WBC 10.8
Hgb 8.2 L
Hct 25.4 L
Plt Count 303
Sodium 141
Potassium 4.1
Chloride 108 H
Carbon Dioxide 25
BUN 20
Creatinine 1.2
Glucose 138 H
Calcium 8.5
Vital Signs:
Vital Signs
Temp Pulse Resp BP Pulse Ox
97.6 F 82 14 132/61 97
12/06/24 07:00 12/06/24 07:49 12/06/24 07:49 12/06/24 07:00 12/06/24 08:00
I&O
12/05/24 12/06/24 12/07/24
06:59 06:59 06:59
Intake Total 480 / 480 1340 / 1340
Output Total 3900 / 3900 -900 / -900
Balance -3420 / -3420 2240 / 2240
Review of Systems
-
History Source: Patient
All other systems: Reviewed and negative
Physical Exam
-
General: No Apparent Distress
HEENT: Normocephalic
Respiratory: Clear to Auscultation
Cardiac: Regular Rhythm
GI: Soft, Nontender and Nondistended
Genito-urinary: Other (urine clear proximal tube sesay; small blood clot seen distal )
Musculoskeletal: No Clubbing, No Cyanosis and No Edema
Neuro: Awake, Alert, Oriented and AO x 3
Psych: Calm
Data Reviewed
-
Diagnostic Radiology: Report Reviewed by me
Labs: Labs Reviewed by me
[2024-12-06 11:28] LABS: Glucose - Point of Care 188 mg/dl (70-99)
--- NOTE | 2024-12-06 12:33 | W.PN.URO.CBU ---
Today's Communication / Plan
-
Voiding trial in AM 12/07 if urine remains clear
Check post-void bladder scans to ensure emptying (ideally <200 cc volumes)
OK to continue ASA
Hold Plavix on discharge
F/U in office in 1 week for UA/PVR check w/ RN
F/U for outpatient cystoscopy
D/w patient.
D/w Hospitalist.
Assessment / Plan
-
Gross hematuria w/ clot retention
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
Urine clear yellow in tubing (CBI off).
On ASA (off Plavix).
CT imaging w/o renal/bladder pathology noted.
Tentatively planned for outpatient cystoscopy prior to this admission.
Diagnosis
-
Date of Service: December 06, 2024
-
Patient Diagnosis:
Hematuria w/ clot retention
Radiation cystitis
Subjective
-
Urine crystal clear in tubing - CBI off x24 hrs.
Aspirin started.
Denies bladder spasms.
Objective
-
Vital Signs
Temp Pulse Resp BP Pulse Ox
97.6 F 82 14 132/61 97
12/06/24 07:00 12/06/24 07:49 12/06/24 07:49 12/06/24 07:00 12/06/24 08:00
Intake and Output
12/05/24 12/06/24 12/07/24
06:59 06:59 06:59
Intake Total 480 / 480 1340 / 1340
Output Total 3900 / 3900 -900 / -900
Balance -3420 / -3420 2240 / 2240
Intake:
Oral fluids 480 / 480 1040 / 1040
IV fluids (Total) 300 / 300
Output:
Urine, Lopez 1400 / 1400
True Urine Output from CBI 3900 / 3900 -2300 / -2300
Laboratory Results
12/06/24 06:49
12/06/24 06:49
Physical Exam
-
General - well developed, well nourished, no acute distress
Abdomen - soft, non-tender, non-distended
- 3-way catheter w/ clear yellow UOP in tubing
Skin - warm & dry with no rash
Extremities - no clubbing, no cyanosis, no edema
Care Review
Data Reviewed
Discussed with: Hospitalist and Nursing
CT Scan: Report Pers Reviewed and Image Pers Reviewed
[2024-12-06] MEDS: NOVOLOG FLEXPEN-LOW RESISTANCE 1 UNITS SC (12:43)
[2024-12-06 15:00] VITALS: BP 126/61
--- NOTE | 2024-12-06 16:15 | CM ---
Chart reviewed. Care ongoing at this time. Patient is current w/ [facility]
Met w/ patient bedside, shared he may d/c tomorrow. His will transport
IMM verbally reviewed, patient given copy, copy placed on chart
Plan: Home; [facility] w/ [facility]
[2024-12-06 16:24] LABS: Glucose - Point of Care 133 mg/dl (70-99)
[2024-12-06 21:38] LABS: Glucose - Point of Care 269 mg/dl (70-99)
[2024-12-06] MEDS: LANTUS 0.2 UNITS SC (21:47)
[2024-12-06] MEDS: PROTONIX 40 MG PO (21:48)
[2024-12-06] MEDS: LIPITOR 20 MG PO (21:48)
[2024-12-06 23:53] VITALS: BP 144/74
[2024-12-07 05:21] VITALS: BMI 23.6
[2024-12-07 07:00] VITALS: BP 103/69
[2024-12-07 07:25] LABS: Hematocrit 25.7 % (39.0-52.0); Hemoglobin 8.2 g/dL (13.0-18.0); Mean Corp Hgb Conc. 31.9 g/dL (33.0-37.0); Mean Corpuscular Hgb 29.2 pg (27.0-31.0); Mean Corpuscular Volume 91.5 fL (80.0-94.0); Mean Platelet Volume 9.4 fL (7.4-10.4); Platelet Count 295 10^3/uL (130-400); Red Blood Cell Count 2.81 10^6/uL (4.70-6.10); Red Cell Dist. Width 13.7 % (11.5-14.5); White Blood Cell Count 13.1 10^3/uL (4.8-10.8)
[2024-12-07 07:30] LABS: Glucose - Point of Care 170 mg/dl (70-99)
[2024-12-07] MEDS: STRIVERDI RESPIMAT 2 PUFF INH (07:32)
[2024-12-07] MEDS: SPIRIVA RESPIMAT 2.5 MCG 2 PUFF INH (07:32)
[2024-12-07] MEDS: NOVOLOG FLEXPEN-LOW RESISTANCE 1 UNITS SC (07:47)
[2024-12-07] MEDS: TRIAMCINOLONE ACETONIDE 0.1% CREAM TOPICAL (07:47)
[2024-12-07] MEDS: LOW STRENGTH ASPIRIN 81 MG PO (07:48)
[2024-12-07] MEDS: COREG 6.25 MG PO (07:51)
[2024-12-07] MEDS: COZAAR 25 MG PO (07:51)
[2024-12-07 08:05] LABS: Blood Urea Nitrogen 20 mg/dl (9-20); Calcium 8.5 mg/dl (8.4-10.2); Carbon Dioxide 25 mmol/L (22-30); Chloride 106 mmol/L (98-107); Estimated Creatinine Clearance 55 ml/min; Glucose 181 mg/dl (70-99); Potassium 4.4 mmol/L (3.5-5.1); Sodium 140 mmol/L (135-145); eGFR 59.63
--- NOTE | 2024-12-07 10:31 | W.PN.URO.CBU ---
Today's Communication / Plan
-
appears fit for discharge urologically
Assessment / Plan
-
Gross hematuria w/ clot retention -- resolved
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
Diagnosis
-
Date of Service: December 07, 2024
-
Patient Diagnosis:
Hematuria w/ clot retention
Radiation cystitis
Subjective
-
wants to go home
Lopez was removed and pt has voided 2x since
Objective
-
Vital Signs
Temp Pulse Resp BP Pulse Ox
98.1 F 89 14 103/69 96
12/07/24 07:00 12/07/24 07:51 12/07/24 07:35 12/07/24 07:51 12/07/24 08:00
Intake and Output
12/06/24 12/07/24 12/08/24
06:59 06:59 06:59
Intake Total 1340 / 1340 1020 / 1020
Output Total -900 / -900 700 / 700
Balance 2240 / 2240 320 / 320
Intake:
Oral fluids 1040 / 1040 780 / 780
IV fluids (Total) 300 / 300 240 / 240
Output:
Urine, Lopez 1400 / 1400 700 / 700
True Urine Output from CBI -2300 / -2300
Laboratory Results
12/07/24 07:05
12/07/24 07:05
Physical Exam
-
General - well developed, well nourished, no acute distress
--- NOTE | 2024-12-07 10:53 | W.PN.HOSP.TC ---
Today's Communication/Plan
-
OK for DC today
Assessment / Plan
Assessment / Plan
Mr. Arash Fish is a 84 yo man with hx CAD, CVA, PAD on asa/plavix, CHF, HLD, recent admission 11/21-11/24/24 for hematuria most likely 2/2 radiation cystitis presents to the ER with recurrent hematuria.
Recurrent Hematuria with clot urinary retention
Radiation-Induced Hemorrhagic Cystitis
Hx Prostate CA s/p brachytherapy seeding
-s/p CBI with resolution; CBI clamped 12/05
-appreciate Urology
-aspirin resumed
-DC sesay and patient has voided since - OK for DC
-per Urology, follow up outpatient for office cystoscopy and likely hyperbaric oxygen therapy
HX CKD 3b : Cr 1.4 - 1.5 at baseline
- trend Cr
T2DM
on Tresiba HS
COPD
- not in exacerbation
- Home Nebs
CAD s/p CABG
HLD
-aspirin resumed
- Stop Plavix since DC from last admission
Chronic HFmrEF
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
- Daily Wt
Essential HTN
- Coreg, losartan continued with hold parameters
mild leukocytosis - likely stress reaction, patient without signs of infection
DVT ppx SCDs
Full code
IP MS
Anticipated Discharge: Today
Subjective/Interval History
-
Date of Service: December 07, 2024
feeling well
urinated post sesay removal
Objective Data
-
Labs:
Laboratory Results
12/07/24
07:05
WBC 13.1 H
Hgb 8.2 L
Hct 25.7 L
Plt Count 295
Sodium 140
Potassium 4.4
Chloride 106
Carbon Dioxide 25
BUN 20
Creatinine 1.2
Glucose 181 H
Calcium 8.5
Vital Signs:
Vital Signs
Temp Pulse Resp BP Pulse Ox
98.1 F 89 14 103/69 96
12/07/24 07:00 12/07/24 07:51 12/07/24 07:35 12/07/24 07:51 12/07/24 08:00
I&O
12/06/24 12/07/24 12/08/24
06:59 06:59 06:59
Intake Total 1340 / 1340 1020 / 1020
Output Total -900 / -900 700 / 700
Balance 2240 / 2240 320 / 320
Review of Systems
-
History Source: Patient
All other systems: Reviewed and negative
Physical Exam
-
General: No Apparent Distress
HEENT: Normocephalic
Respiratory: Clear to Auscultation
Cardiac: Regular Rhythm
GI: Soft, Nontender and Nondistended
Musculoskeletal: No Clubbing, No Cyanosis and No Edema
Neuro: Awake, Alert, Oriented and AO x 3
Psych: Calm
Data Reviewed
-
Diagnostic Radiology: Report Reviewed by me
Labs: Labs Reviewed by me
--- NOTE | 2024-12-07 10:58 | W.DS.TRANS ---
DC Summary - [facility]
-
Discharge Instructions:
Sleep Apnea Risk Intermediate
Discharge Diagnosis/Procedures Hematuria
Diet Regular,Low Cholesterol
Activity As tolerated
Driving Restrictions As prior to admission
Bathing Restrictions None
Specialty Instructions Weigh Daily
Instructions:
Stand-Alone Forms:
Changes to Home Medications: Yes
Discharge Medications:
DC Medications w/original date entered in [facility]
carvedilol 6.25 mg tablet 6.25 mg PO BID Blood pressure 08/10/19
pantoprazole 40 mg tablet,delayed release 40 mg PO HS Gastrointestinal issue 05/16/21
albuterol sulfate 90 mcg/actuation aerosol inhaler 1 puff inhalation R Q6HPRN PRN wheezing 11/21/23
atorvastatin 20 mg tablet 20 mg PO HS High Cholesterol 11/21/23
betamethasone dipropionate 0.05 % topical cream 1 applic topical BID Facial Rash, redness 11/21/23
evolocumab 140 mg/mL subcutaneous pen injector (Repatha SureClick) 140 mg SC Q2W High Cholesterol 11/21/23
glycopyrrolate 9 mcg-formoterol 4.8 mcg HFA aerosol inhaler (BevesMotion Mathphere) 2 puff inhalation R BID Lung/Breathing Issues 11/21/23
insulin aspart U-100 100 unit/mL (3 mL) subcutaneous pen (Novolog FlexPen U-100 Insulin aspart) 10 - 20 sliding scale dose SC AC Diabetes 11/21/23
insulin degludec 100 unit/mL (3 mL) subcutaneous pen (Tresiba FlexTouch U-100 insulin) 42 unit SQ HS Diabetes 11/21/23
acetaminophen 325 mg tablet 650 mg PO Q6HPRN PRN mild pain 03/27/24
losartan 25 mg tablet 25 mg PO DAILY Blood Pressure 03/27/24
triamcinolone acetonide 0.1 % topical cream 1 applic topical BID 11/21/24
aspirin 81 mg tablet,delayed release 81 mg PO DAILY Blood Clot Prevention/Tx 12/04/24
mirabegron 50 mg tablet,extended release 24 hr (Myrbetriq) 50 mg PO DAILY Urinary Issue 12/04/24
Home Medication Changes
stop antibiotics
Pending Results: No
--- NOTE | 2024-12-07 11:29 | CM ---
Met with patient at bedside; attempted to speak with primary contact/daughter via phone; left a voice mail with contact information
Patient reported that son will transport home and he will resume home health services with [facility] (agency notified of discharge via [facility]
Plan: discharge to home today with home health
--- NOTE | 2024-12-07 14:41 | W.DCSUMMARY ---
Discharge Summary
Discharge Data
Date of Admission: 12/04/24
Date of Discharge: 12/07/24
-
Pending Results: No
Hospital Course
Discharging Physician : Dr. Keri Granger
Disposition : Home
Principal Discharge diagnosis : Hematuria secondary to radiation Cystitis
Hospital Course :
Mr. Arash Fish is a 84 yo man with hx CAD, CVA, PAD on asa/plavix, CHF, HLD, recent admission 11/21-11/24/24 for hematuria most likely 2/2 radiation cystitis presents to the ER with recurrent hematuria.
Triage vitals stable. Labs with Hg 8.8 (was 8.7 10 days prior). Urology consulted. He was started on CBI. Aspirin and Plavix held. Urine cleared overnight, no need for cystoscopy/fulguration. His aspirin was resumed and he remained with clear
urine. He voided once sesay catheter was removed. Plan is for outpatient follow up with Urology to discuss office cystoscopy and hyperbaric oxygen therapy.
He will not resume Plavix, continue aspirin.
HH resumed.
Time spent on discharge was 32 minutes.
Important imaging findings :
Procedure findings :
Discharge Plan
-
Patient Disposition: Home (Routine Discharge)
Discharge Diagnosis/Procedures: Hematuria
Diet: Regular and Low Cholesterol
Activity: As tolerated
Driving Restrictions: As prior to admission
Bathing Restrictions: None
Specialty Instructions: Weigh Daily- Call MD for wt gain/loss 3 lbs overnight/5 lbs in 1 week
Referrals:
Benito Barrett MD [Active] -
(Please call [phone] to make a follow up appointment with the Urology nurse in the office in 1 week from discharge.
You will be scheduled for a cystoscopy with Dr. Barrett in the office (patch worker will call you to confirm).)
NONE,* [Family Provider] -
Additional Discharge Medication Instructions: Do not take Plavix
No need to take antibiotics
Prescriptions:
Continued
carvedilol 6.25 MG tablet
6.25 mg PO BID
pantoprazole 40 MG tablet,delayed release (DR/EC)
40 mg PO HS
atorvastatin 20 mg Tablet
20 mg PO HS
betamethasone dipropionate 0.05 % Cream
1 applic TOPICAL BID
Patient Comments:
apply on cheeks
albuterol sulfate 90 mcg/actuation Hfa Aerosol Inhaler
1 puff INHALATION R Q6HPRN PRN (Reason: wheezing)
Repatha SureClick 140 mg/mL Pen Injector
140 mg SC Q2W
Bevespi Aerosphere 9-4.8 mcg Hfa Aerosol Inhaler
2 puff INHALATION R BID
insulin aspart U-100 [Novolog FlexPen U-100 Insulin] 100 unit/mL (3 mL) insulin pen
10 - 20 sliding scale dose SC AC
insulin degludec [Tresiba FlexTouch U-100] 100 UNIT/ML insulin pen
42 unit SQ HS
losartan 25 mg Tablet
25 mg PO DAILY
acetaminophen 325 mg tablet
650 mg PO Q6HPRN PRN (Reason: mild pain)
triamcinolone acetonide 0.1 % cream
1 applic TOPICAL BID
Patient Comments:
both legs
aspirin 81 mg Tablet,Delayed Release (Dr/Ec)
81 mg PO DAILY
Patient Comments:
12/04/24: Family states doctor said to hold for 2 days
mirabegron [Myrbetriq] 50 mg Tablet Extended Release 24 Hr
50 mg PO DAILY
Discontinued
cefuroxime axetil 500 mg tablet
500 mg PO DAILY
Patient Comments:
12/04/24: family states patient is taking 1 tablet daily and has 2 tablets left in the bottle. Rx written for Q12h.
Discharge Orders:
Discharge Patient (As Directed); Ordered 12/07/24
Ordered By: Keri Granger
Discharge Date and Time
Discharge Date/Time: 12/07/24 11:50
Print Language: LITHUANIAN
== END 2024-12-07 11:50 | disposition home health service (06) | DRG 699 ==
LOC: 4 WEST ACU 22:41
PROVIDERS: Registered Nurse; ADMITTING PHYSICIAN Internal Medicine; ATTENDING PHYSICIAN Student in an Organized Health Care Education/Training Program; CONSULT PHYSICIAN Urology; EMERGENCY PHYSICIAN Emergency Medicine
DX: N30.41 Irradiation cystitis with hematuria (principal); I13.0 Hypertensive heart and chronic kidney disease with heart failure and stage 1 through stage 4 chronic kidney disease, or unspecified chronic kidney disease; I50.22 Chronic systolic (congestive) heart failure; K51.90 Ulcerative colitis, unspecified, without complications; Y84.2 Radiological procedure and radiotherapy as the cause of abnormal reaction of the patient, or of later complication, without mention of misadventure at the time of the procedure; E11.51 Type 2 diabetes mellitus with diabetic peripheral angiopathy without gangrene; E78.00 Pure hypercholesterolemia, unspecified; I25.10 Atherosclerotic heart disease of native coronary artery without angina pectoris; Z95.1 Presence of aortocoronary bypass graft; N32.81 Overactive bladder; Z85.46 Personal history of malignant neoplasm of prostate; J44.89 Other specified chronic obstructive pulmonary disease; N18.32 Chronic kidney disease, stage 3b; E11.22 Type 2 diabetes mellitus with diabetic chronic kidney disease; Z86.73 Personal history of transient ischemic attack (TIA), and cerebral infarction without residual deficits; E11.40 Type 2 diabetes mellitus with diabetic neuropathy, unspecified; G89.29 Other chronic pain; Z87.891 Personal history of nicotine dependence; Z79.4 Long term (current) use of insulin; Z79.82 Long term (current) use of aspirin; Z79.02 Long term (current) use of antithrombotics/antiplatelets; K21.9 Gastro-esophageal reflux disease without esophagitis; L40.9 Psoriasis, unspecified
CPT/HCPCS: 51702; 51798; 80048; 80053; 81003; 81015; 82962; 85025; 85027; 87086; 94640; 99285

== ENCOUNTER → 2025-02-04 10:18 | Outpatient (REF) | payer OTHER, SELFPAY | LOC: HWRCS 10:18 | PROVIDERS: ATTENDING PHYSICIAN Internal Medicine Cardiovascular Disease; FAMILY PHYSICIAN Internal Medicine | DX: Z95.1 Presence of aortocoronary bypass graft (principal); I47.19 Other supraventricular tachycardia | CPT/HCPCS: 93306 ==

== ENCOUNTER → 2025-05-16 10:51 | Outpatient (REF) | payer OTHER, SELFPAY | LOC: RAD 10:51 | PROVIDERS: ATTENDING PHYSICIAN Surgery Vascular Surgery; FAMILY PHYSICIAN Internal Medicine | DX: I73.9 Peripheral vascular disease, unspecified (principal) | CPT/HCPCS: 93922; 93925 ==